=== PATIENT | female | born 1960 | race Caucasian/White ===

== ENCOUNTER 2017-06-23 14:11 | Emergency (ER) | payer SELFPAY ==
[2017-06-23 14:15] VITALS: PULSE 88; RESP 18; O2SAT 96; BMI 29.1
--- NOTE | 2017-06-23 14:20 | XR_ITS ---
XR knee RT 3V HISTORY: Right knee pain following injury ITS.REASON: fall ORDERING PHYSICIAN: Amari Garcia MD PATIENT AGE: 56 years COMPARISON: 11/21/2013 FINDINGS: There are mild osteoarthritic changes involving all 3 compartments with mild osteophyte formation laterally and at the patellofemoral joint and at the tibial spine region. No acute fracture or dislocation evident. Osteoarthritis is somewhat worse on today's exam. IMPRESSION: 1. No acute fracture. 2. Tricompartmental osteoarthritis
--- NOTE | 2017-06-23 14:23 | HMH.EDGENADL ---
ED Disposition Clinical Impression: Knee effusion, right Knee joint injury Qualifiers: Encounter type: initial encounter Laterality: right Qualified Code(s): S89.91XA - Unspecified injury of right lower leg, initial encounter Disposition: Home, Self-Care Condition on Discharge: Good Instructions: DI for Knee Sprain, DI for Knee Effusion, How to Use a Knee Immobilizer Additional Instructions: Knee immobilizer until seen by Dr. Kennedy. Ice for swelling. Ibuprofen for pain and swelling. Referrals: Macho Germain MD [Primary Care Provider] - Isaiah Kennedy MD [Staff Physician] - (Call for appointment to be seen within 1 week) - Critical Care Critical Care Time: No Attestation: On , the high probability of a clinically significant, sudden or life threatening deterioration of the following system(s) required my full and direct attention, intervention and personal management. The time I documented below is in addition to time spent performing reported procedures but includes the following listed in this critical care notation. Medical Decision Making Vital Signs: 06/23/17 14:15 Temperature Source Oral Pulse Rate [Right Brachial] 88 Respiratory Rate 18 02 Sat by Pulse Oximetry 96 Oxygen Delivery Method Room Air Orders (Tests/Meds): ED MEDICATIONS Discontinued Medications Generic Name Dose Route Start Last Admin Trade Name Freq PRN Reason Stop Dose Admin Ibuprofen 800 mg 06/23/17 14:51 06/23/17 15:02 Motrin 400mg Tablet PO 06/23/17 14:52 800 mg ONCE ONE Administration ORDERS Category Date Time Status XR knee RT 3V Stat Exams 06/23/17 14:20 Taken - Radiology Data #1 Image(s): Knee Image Reviewed: Yes I reviewed the patient's radiology results Degenerative changes with spurs. No fracture seen. - Remi Inquiry Pt receiving controlled substance: No Medical Decision Making Narrative: refuses crutches General Adult HPI - General Chief complaint: Extremity Injury, Lower Stated complaint: AO [id number] r knee pain Mode of Arrival: Ambulatory Limitations: No Limitations Description of Symptoms (Recalled from ER Triage Doc. by RN): fell and injured right knee - History of Present Illness HPI narrative: Patient fell and injured her right knee today at work. She complains of diffuse pain across the anterior knee. It hurts when she bears a lot of weight on it. No numbness or weakness. No medications taken for the injury. - Related Data Home Medications Medication Instructions Recorded Confirmed paroxetine 20 mg tablet 20 mg PO QAM 05/11/17 Previous Rx's Medication Instructions Recorded hydrochlorothiazide 25 mg tablet 25 mg PO DAILY #90 tab 06/18/17 Allergies Allergy/AdvReac Type Severity Reaction Status Date / Time codeine [CODEINE] Allergy Intermediate I-HIVES Unverified 05/13/17 11:48 morphine [MORPHINE] Allergy Intermediate I-HIVES Unverified 05/13/17 11:48 penicillin G [PENICILLIN G] Allergy Intermediate I-HIVES Unverified 05/13/17 11:48 acetaminophen [From Tylenol] Allergy Mild RASH Verified 05/13/17 11:48 rofecoxib [From VIOXX] Allergy Unknown NA-NAUSEA/V Unverified 05/13/17 11:48 OMITING H History I have reviewed the patient's past medical history: Yes Medical History: Reports:: Hypertension Denies:: Diabetes Mellitus Type 1, Diabetes Mellitus Type 2 Comment: ANXIETY. HYPERTENSION Other Surgeries: Yes: , Other Amputation: No Fractures: No Comment: PRIMARY C/S--1985. R C/S--1986. BTL--1993. LAP. CHOLY--2012 - Social History Educational Level: Completed High School Smoking Status: Former smoker Tobacco Type: cigarettes Alcohol Intake: never Substance Use Type: denies use - Psychiatric History Expresses thoughts of harming self/others: None Suicide Plan Description: No Plan Family Hx:: Cancer, Hypertension, Coronary Artery Disease, Stroke Comment: 2 SAB'S. 2 C/S ROS Obtained: Yes Systems
[2017-06-23 15:21] VITALS: BP 136/78; PULSE 67; RESP 16; TEMP 36.6
== END 2017-06-23 15:24 | disposition home or self-care (01) ==
PROVIDERS: Emergency Provider Emergency Medicine; Family Provider Family Medicine; PCP Emergency Medicine
DX: S89.91XA Unspecified injury of right lower leg, initial encounter (principal); W19.XXXA Unspecified fall, initial encounter
CPT/HCPCS: 73562; 99281

== ENCOUNTER → 2018-03-15 15:51 | Outpatient (CLI) | payer SELFPAY ==
--- NOTE | 2018-03-15 16:12 | MR_ITS ---
MR lumbar spine wo con, MR 3-d myelogram/MRCP HISTORY: PT states low back pain, bilateral leg pain, bilateral feet tingling X years. ITS.REASON: back pain ORDERING PHYSICIAN: Macho Germain MD PATIENT AGE: 57 years Comparison: MRI 05/18/14. X-RAY 03/15/18 TECHNIQUE: Standard multiplanar multiecho sequences are performed without contrast. 3-D MIP and myelographic images are also rendered and reviewed FINDINGS: There is normal alignment. The spinal cord ends at the T12-L1 level. There is a small focus of increased T2 signal and slightly increased T1 signal involving the T11 vertebral body as before T11-T12: Unremarkable. T12-L1: Unremarkable. L1-L2: Unremarkable. L2-L3: Minimal bulging disc. L3-L4: Concentric bulging disc along with facet and ligamentum flavum hypertrophy with moderate to severe right-sided lateral recess narrowing and moderate left-sided lateral recess narrowing. The bulging disc is slightly eccentric toward the right. There is an annular fissure within the posterior aspect of the disc slightly eccentric toward the right. There is narrowing of the canal at this level L4-L5: Degenerative disc disease with concentric bulging disc along with facet and ligamentum flavum hypertrophy. There is a small broad-based central disc protrusion. There is narrowing of the canal at this level with AP dimension at the level the bulging disc at 10 mm. There is moderate to severe bilateral foraminal narrowing and moderate bilateral lateral recess narrowing.. Annular fissure is noted posteriorly. L5-S1: Mild degenerative disc disease with small annular fissure and minimal bulging disc. Incidental note is made of left renal cysts largest at 4 cm. IMPRESSION: 1. Abnormal MRI of the lumbar spine. There is multilevel lumbar spondylosis with bulging disc, facet and ligamentum hypertrophy, annular fissures and protruding disc. There is canal narrowing along with lateral recess and foraminal narrowing. PLEASE SEE ABOVE FOR DETAILED DESCRIPTION AT EACH LEVEL. 2. L3-L4: Concentric bulging disc along with facet and ligamentum flavum hypertrophy with moderate to severe right-sided lateral recess narrowing and moderate left-sided lateral recess narrowing. The bulging disc is slightly eccentric toward the right. There is an annular fissure within the posterior aspect of the disc slightly eccentric toward the right. There is narrowing of the canal at this level 3. L4-L5: Degenerative disc disease with concentric bulging disc along with facet and ligamentum flavum hypertrophy. There is a small broad-based central disc protrusion slightly larger than when compared to the previous study. There is narrowing of the canal at this level with AP dimension at the level the bulging disc at 10 mm. There is moderate to severe bilateral foraminal narrowing and moderate bilateral lateral recess narrowing.. Annular fissure is noted posteriorly. 4. L5-S1: Mild degenerative disc disease with small annular fissure and minimal bulging disc.
--- NOTE | 2018-03-15 16:15 | XR_ITS ---
EXAM: XR lumbar spine min 4V HISTORY: ITS.REASON: back pain ORDERING PHYSICIAN: Macho Germain MD PATIENT AGE: 57 years COMPARISON: None FINDINGS: Mild dextroscoliosis. Mild degenerative disc disease is present at L3-L4 L4-L5 and L5-S1. No fracture or dislocation. No lytic or blastic change. Small anterior osteophytes are present at L1-L2. IMPRESSION: Mild degenerative changes lumbar spine, no acute finding
== END ==
PROVIDERS: PCP Emergency Medicine; Visit Provider Emergency Medicine
DX: M54.9 Dorsalgia, unspecified (principal)
CPT/HCPCS: 72110; 72148; 76376

== ENCOUNTER → 2018-06-21 16:25 | Outpatient (CLI) | payer OTHER, SELFPAY ==
--- NOTE | 2018-06-21 16:29 | XR_ITS ---
XR chest 2V HISTORY: ITS.REASON: cough ORDERING PHYSICIAN: Chantale Ames PATIENT AGE: 57 years COMPARISON: 03/12/2017 FINDINGS: The cardiomediastinal silhouette and pulmonary vascularity are within normal limits. There is mild prominence of the mediastinum on the right and may be related to ectatic or tortuous ascending aorta. The lungs are clear. No acute bony anomalies. IMPRESSION: No change with no acute finding. Mild prominence of the ascending aorta
== END ==
PROVIDERS: PCP Emergency Medicine; Visit Provider Nurse Practitioner Family
DX: R05 Cough (principal); R06.02 Shortness of breath
CPT/HCPCS: 71046

== ENCOUNTER → 2018-07-14 12:42 | Outpatient (POV) | payer OTHER, SELFPAY | PROVIDERS: Visit Provider Neurological Surgery | DX: Z00.00 Encounter for general adult medical examination without abnormal findings (principal) ==

== ENCOUNTER → 2018-08-03 10:45 | Outpatient (CLI) | payer OTHER, SELFPAY ==
--- NOTE | 2018-08-03 10:46 | CA_ITS ---
PROCEDURE: 2-D M-mode and color Doppler study INDICATIONS FOR THE TEST: Chest pain COPD Heart Murmur Tobacco Smoking Palpitations Fatigue Syncope Edema Hypertension Diabetes Mellitus Rheumatic Fever SOB+SNIDER Obesity Hyperlipidemia Family History HD Additional History heart cath 06/2018 PATIENT INFORMATION HEIGHT: 67 WEIGHT: 191 GENDER: Female B/P: 123/73 2-D/M-MODE INTERPRETATION: 2-D MEASUREMENTS OBSERVED VALUES IN CMS Right Ventricular Dimension (RVDd) 2.2 Interventricular Septum (Thickness)(IVsd) 0.5 Left Ventricular Internal Dimensions(LVIDd) 5.1 Left Ventricular Posterior Wall (Thickness)(LVPWd) 0.6 Aortic Root 2.6 Aortic Cusp Separation 1.8 Left Atrial Dimensions (LAD) 3.2 2D 1. Left atrium is mildly enlarged, left ventricle is normal size, there is no concentric left ventricular hypertrophy, visually estimated ejection fraction 55% with no regional wall motion abnormality. 2. The right atrium and right ventricle are mildly enlarged with normal contractility. 3. The aortic valve is minimally thickened and fibrosed. 4. The mitral and tricuspid valve leaflets are minimally thickened. 5. The pulmonic valve is poorly. 6. No significant pericardial effusion noted. DOPPLER INTERROGATION: Doppler interrogation of the aortic, mitral and tricuspid valvular presence of mild mitral and moderate tricuspid regurgitation, calculated right ventricular systolic pressure is 49 mmHg consistent with moderate pulmonary hypertension, grade 1 diastolic dysfunction seen with tissue Doppler evidence of raised left atrial pressure. Inferior vena cava is not well visualized. CONCLUSION: 1. Mildly enlarged left atrium, normal left ventricular size, visually estimated ejection fraction of 55% with no regional wall motion abnormality, grade 1 diastolic dysfunction seen with tissue Doppler evidence of raised left atrial pressure. 2. Mild mitral and moderate tricuspid regurgitation, calculated right ventricular systolic pressure is 49 mmHg consistent with moderate pulmonary hypertension, inferior vena cava is not well visualized. 3. No significant pericardial effusion noted.
[2018-08-03 12:35] VITALS: PULSE 63; PULSE 68
== END ==
PROVIDERS: PCP Emergency Medicine; Visit Provider Internal Medicine
DX: I10 Essential (primary) hypertension (principal); I51.89 Other ill-defined heart diseases; R06.09 Other forms of dyspnea
CPT/HCPCS: 93306; 94060; 94640; 94727; 94729

== ENCOUNTER → 2018-08-23 16:11 | Outpatient (CLI) | payer OTHER, SELFPAY ==
--- NOTE | 2018-08-23 16:17 | XR_ITS ---
XR chest AP HISTORY: Shortness of air ITS.REASON: SOA ORDERING PHYSICIAN: Chevy Valente APRN PATIENT AGE: 57 years COMPARISON: 06/21/2018 FINDINGS: There is mild prominence of the right aspect of the mediastinum suggesting prominent ascending aorta. The heart size. Lungs are clear bilaterally. No acute bony findings IMPRESSION: No acute finding. No change prominence of the ascending aorta which could be better evaluated with CT angiography of the chest if clinically desired
[2018-08-23 18:53] LABS: Anion Gap 18.8 mEq/L (5-15); Blood Urea Nitrogen 32 mg/dL (7-18); Calcium 9.6 mg/dL (8.5-10.1); Carbon Dioxide 23 mmol/L (21.0-32.0); Chloride 96 mmol/L (98-107); Creatinine,Serum 1.42 mg/dL (0.55-1.02); Estimated Glomerular Filt Rate 38 ml/min (>60); GFR (African American) 46 ML/MIN (>60); Glucose 86 mg/dL (74-106); Potassium 4.8 mmoL/L (3.5-5.1); Sodium 133 mmol/L (136-145)
== END ==
PROVIDERS: PCP Emergency Medicine; Visit Provider Nurse Practitioner Family
DX: R06.00 Dyspnea, unspecified (principal); R25.2 Cramp and spasm
CPT/HCPCS: 71045; 80048

== ENCOUNTER → 2018-09-09 09:26 | Outpatient (CLI) | payer OTHER, SELFPAY ==
[2018-09-09 10:34] LABS: Anion Gap 12.1 mEq/L (5-15); Blood Urea Nitrogen 19 mg/dL (7-18); Calcium 9.1 mg/dL (8.5-10.1); Carbon Dioxide 27 mmol/L (21.0-32.0); Chloride 106 mmol/L (98-107); Creatinine,Serum 0.93 mg/dL (0.55-1.02); Estimated Glomerular Filt Rate 63 ml/min (>60); GFR (African American) 76 ML/MIN (>60); Glucose 84 mg/dL (74-106); Potassium 4.1 mmoL/L (3.5-5.1); Sodium 141 mmol/L (136-145)
== END ==
PROVIDERS: Visit Provider Urology
DX: I27.20 Pulmonary hypertension, unspecified (principal); R06.00 Dyspnea, unspecified
CPT/HCPCS: 36415; 80048

== ENCOUNTER → 2018-10-19 11:53 | Outpatient (CLI) | payer OTHER, SELFPAY ==
[2018-10-19 13:23] LABS: Anion Gap 14.1 mEq/L (5-15); Blood Urea Nitrogen 18 mg/dL (7-18); Calcium 9.2 mg/dL (8.5-10.1); Carbon Dioxide 30 mmol/L (21.0-32.0); Chloride 99 mmol/L (98-107); Creatinine,Serum 0.91 mg/dL (0.55-1.02); Estimated Glomerular Filt Rate 64 ml/min (>60); GFR (African American) 78 ML/MIN (>60); Glucose 85 mg/dL (74-106); Potassium 3.1 mmoL/L (3.5-5.1); Sodium 140 mmol/L (136-145)
== END ==
PROVIDERS: Visit Provider Nurse Practitioner Family
DX: I51.89 Other ill-defined heart diseases (principal); R60.9 Edema, unspecified
CPT/HCPCS: 36415; 80048

== ENCOUNTER → 2019-01-31 13:44 | Outpatient (CLI) | payer OTHER, SELFPAY ==
[2019-02-01 11:39] LABS: Amphetamine/Metha Screen,Urine Negative ng/mL (<1000); Barbiturates Screen,Urine Negative ng/mL (<200); Benzodiazepines Screen,Urine Negative ng/mL (<200); Cannabinoid Screen,Urine Negative ng/mL (<50); Cocaine Screen,Urine Negative ng/mL (<300); Methadone Screen,Urine Negative ng/mL (<300); Opiate Screen,Urine Positive ng/mL (<300); Phencyclidine Screen,Urine Negative ng/mL (<25)
== END ==
PROVIDERS: Visit Provider Emergency Medicine
DX: Z79.891 Long term (current) use of opiate analgesic (principal)
CPT/HCPCS: 80305

== ENCOUNTER → 2019-05-29 13:19 | Outpatient (CLI) | payer OTHER, SELFPAY ==
[2019-05-29 13:34] LABS: Basophils # 0.1 K/mm3 (0-0.2); Basophils % 0.8 % (0.1-2.0); Eosinophils # 0.3 K/mm3 (0.0-0.4); Eosinophils % 3.1 % (0.1-12.0); Hematocrit 41.1 % (37.0-47.0); Hemoglobin 13.5 g/dL (12.2-16.2); Lymphocytes # 2.3 K/mm3 (0.7-4.5); Lymphocytes % 24.3 % (10-50); Mean Corpuscular HGB Conc 32.8 g/dL (31.8-35.4); Mean Corpuscular Hemoglobin 29.6 pg (27.0-31.2); Mean Corpuscular Volume 90.4 fl (81-99); Mean Platelet Volume 7.9 fl (7.4-10.4); Monocytes # 0.5 K/mm3 (0.1-1.0); Monocytes % 5.3 % (1.7-9.3); Neutrophils # 6.2 K/mm3 (1.8-7.8); Neutrophils % 66.5 % (37.0-80.0); Platelet Count 405 K/mm3 (142-424); Red Blood Count 4.54 M/mm3 (4.20-5.40); Red Cell Distribution Width 13.2 % (11.5-17.5); White Blood Count 9.4 K/mm3 (4.8-10.8)
[2019-05-29 14:27] LABS: Alanine Aminotransferase 32 U/L (12-78); Albumin Level 3.8 gm/dL (3.4-5.0); Albumin/Globulin Ratio 1.1 (1.1-1.8); Alkaline Phosphatase 85 U/L (46-116); Anion Gap 12.3 mEq/L (5-15); Aspartate Amino Transferase 28 U/L (15-37); Bilirubin,Total 0.4 mg/dL (0.2-1.0); Blood Urea Nitrogen 21 mg/dL (7-18); Calcium 9.6 mg/dL (8.5-10.1); Carbon Dioxide 32 mmol/L (21.0-32.0); Chloride 101 mmol/L (98-107); Cholesterol 190 mg/dL (140-200); Creatinine,Serum 0.94 mg/dL (0.55-1.02); Estimated Glomerular Filt Rate 62 ml/min (>60); Free T4 (Free Thyroxine) 1.11 ng/dl (0.76-1.46); GFR (African American) 75 ML/MIN (>60); Globulin 3.4 gm/dl (1.3-3.2); Glucose 87 mg/dL (74-106); HDL Cholesterol 38 mg/dL (29-89); LDL Cholesterol 110 mg/dL (0-130); Potassium 3.3 mmoL/L (3.5-5.1); Sodium 142 mmol/L (136-145); Thyroid Stimulating Hormone 2.74 uIU/ml (0.358-3.740); Total Protein,Serum 7.2 gm/dL (6.4-8.2); Triglycerides 208 mg/dL (30-200); VLDL Cholesterol 42 mg/dL (0-40)
[2019-05-30 14:01] LABS: Vitamin D 25 Hydroxy 33.5 ng/mL (30.0-100.0)
== END ==
PROVIDERS: Visit Provider Emergency Medicine
DX: I10 Essential (primary) hypertension (principal); R30.0 Dysuria
CPT/HCPCS: 80053; 80061; 82652; 84439; 84443; 85025; 87086

== ENCOUNTER → 2019-06-09 14:53 | Outpatient (CLI) | payer OTHER, SELFPAY ==
--- NOTE | 2019-06-09 15:05 | MR_ITS ---
PROCEDURE: MR LUMBAR SPINE WO CON CLINICAL INDICATION: back pain Low back pain, bilateral leg pain numbness and tingling COMPARISON: SPLUMBWO MR lumbar spine wo con from 03/15/2018 TECHNIQUE: Standard multiplanar multiecho sequences are performed without contrast. 3-D MIP and myelographic images are also rendered and reviewed FINDINGS: There is normal alignment. Spinal cord ends at the L1 level. This T10-T11 and T11-T12 shows some mild degenerative disc disease. There is a small lipoma within the T11 vertebral body on the right unchanged incidentally noted. T12-L1: Unremarkable. L1-L2: Unremarkable. L2-L3: Minimal bulging disc. Mild facet and ligamentum hypertrophy. L3-L4: Degenerate disc disease with bulging disc slightly eccentric toward the right with facet ligamentum hypertrophy. There is narrowing of the canal at this level with bilateral lateral recess and foraminal narrowing not significantly changed. L4-5: Degenerate disc disease with bulging disc which is eccentric toward the left with facet and ligamentum hypertrophy with narrowing of the canal with moderate right and mild left foraminal narrowing. There is mild left lateral recess narrowing. L5-S1: Mild degenerative disc disease with minimal bulging disc No extruded herniated disc evident. Incidental note made of left renal cysts measuring up to 4.5 cm IMPRESSION: Multilevel lumbar spondylosis with degenerative disc disease, bulging disc, and facet and ligamentum hypertrophy. Please see above for detailed description at each level. Overall no significant change compared to the previous exam Dictated by: Javi Montoya MD 06/11/2019 08:55 Electronically signed by Javi Montoya MD in [place] 06/11/2019 08:55
== END ==
PROVIDERS: PCP Emergency Medicine; Visit Provider Emergency Medicine
DX: M54.9 Dorsalgia, unspecified (principal)
CPT/HCPCS: 72148; 76376

== ENCOUNTER 2019-11-01 12:56 | Emergency (ER) | payer OTHER, SELFPAY ==
[2019-11-01 13:10] VITALS: BP 128/69; PULSE 72; RESP 16; TEMP 37.1; O2SAT 97; BMI 23.6
[2019-11-01 13:18] VITALS: BMI 23.6
[2019-11-01 13:36] LABS: Microscopic, Urine URINE MICROSCOPIC (MICROSCOPIC)
[2019-11-01 13:38] LABS: Blood, Urine 3+ (Negative); Glucose,Urine (UA) Negative (Negative); Ketones,Urine TRACE (Negative); Leukocyte Esterase,Urine 1+ (Negative); Nitrate,Urine POSITIVE (Negative); Protein,Urine 1+ (Negative); Specific Gravity, Urine 1.025 (1.005-1.030)
[2019-11-01 13:40] LABS: Color,Urine Orange (Yellow)
[2019-11-01 13:41] LABS: Appearance,Urine Slightly Cloudy (Clear); Bilirubin,Urine 1+ (Negative)
[2019-11-01 13:57] LABS: RBC,Urine 20-50 #/hpf (0-3)
[2019-11-01 13:58] LABS: Bacteria,Urine Trace /lpf
--- NOTE | 2019-11-01 14:25 | HMH.EDUROGF ---
ED Disposition Clinical Impression: Urinary tract infection Qualifiers: Urinary tract infection type: site unspecified Hematuria presence: without hematuria Qualified Code(s): N39.0 - Urinary tract infection, site not specified Disposition: Home, Self-Care Condition on Discharge: Good Instructions: DI for Urinary Tract Infection (UTI) Additional Instructions: fluids and call pcp for culture results wednesday Prescriptions: levoFLOXacin [Levaquin 500mg tab] 500 mg PO DAILY #7 tab Transmission Status: Pending to [facility] Referrals: Macho Germain MD [Primary Care Provider] - - Critical Care Critical Care Time: No Attestation: On 11/01/19, the high probability of a clinically significant, sudden or life threatening deterioration of the following system(s) required my full and direct attention, intervention and personal management. The time I documented below is in addition to time spent performing reported procedures but includes the following listed in this critical care notation. Medical Decision Making - Medical Records Medical records reviewed: Yes: I reviewed the patient's medical records. - Remi Inquiry Pt receiving controlled substance: No Vital Signs: 11/01/19 13:10 Temperature 98.7 F Temperature Source Oral Pulse Rate [Left Radial] 72 Respiratory Rate 16 Blood Pressure [Left Arm] 128/69 Blood Pressure Mean [Left Arm] 88 Blood Pressure Source [Left Arm] Automatic Cuff Blood Pressure Position [Left Arm] Sitting 02 Sat by Pulse Oximetry 97 Oxygen Delivery Method Room Air - Lab Data Lab results reviewed: Yes: I reviewed the patient's lab results. Lab Results 11/01/19 13:30: Urine Color Ly[place], Urine Appearance Slightly cloudy, Urine pH 5.0, Ur Specific Baltic 1.025, Urine Protein 1+, Urine Glucose (UA) Negative, Urine Ketones Trace, Urine Blood 3+, Urine Nitrate Positive, Urine Bilirubin 1+ A, Urine Urobilinogen 4.0, Ur Leukocyte Esterase 1+ A, Urine RBC 20-50, Urine WBC 10-20, Ur Squamous Epith Cells 3-5, Urine Bacteria Trace Orders (Tests/Meds): ORDERS Category Date Time Status Urine Culture Stat Micro 11/01/19 13:30 Received Female Urogenital HPI - General Chief complaint: Urogenital-Female Stated complaint: headache,nausea,back pain Time Seen by Provider: 11/01/19 14:25 Mode of Arrival: Ambulatory Source of Information: Patient, Medical Record Limitations: No Limitations Description of Symptoms (Recalled from ER Triage Doc. by RN): Pt c/o lower back pain and burning with urination. Pt reports she began taking AZO lastnight - History of Present Illness HPI Narrative: pt with urinary sx and back pain since last pm with no vomiting MD Complaint: dysuria, UTI Onset (ago): day(s) Location: suprapubic Severity: moderate Urinary Symptoms: dysuria, urgency, frequency : no Associated symptoms: denies other symptoms - Related Data Home Medications Medication Instructions Recorded Confirmed multivitamin 1 tab PO DAILY 10/10/18 09/19/19 Previous Rx's Medication Instructions Recorded aspirin 81 mg tablet,delayed 81 mg PO DAILY #90 tab 12/28/18 release hydrochlorothiazide 25 mg tablet 25 mg PO DAILY #90 tab 05/29/19 buspirone 5 mg tablet 5 mg PO BID #60 tab 07/07/19 gabapentin 300 mg capsule 300 mg PO TID #90 cap 09/20/19 hydrocodone 5 mg-acetaminophen 325 1 tab PO TID #90 tab 09/20/19 mg tablet paroxetine HCl 20 mg tablet 20 mg PO DAILY #90 tab 10/17/19 levoFLOXacin [Levaquin 500mg 500 mg PO DAILY #7 tab 11/01/19 tab] Allergies Allergy/AdvReac Type Severity Reaction Status Date / Time amlodipine [From Norvasc] Allergy Severe Redness of Verified 09/19/19 15:57 Skin furosemide [From Lasix] Allergy Severe swelling, Verified 09/19/19 15:57 pain, rash codeine [CODEINE] Allergy Intermediate I-HIVES Verified 09/19/19 15:57 morphine [MORPHINE] Allergy Intermediate I-HIVES Verified 09/19/19 15:57 penic
[2019-11-01 14:27] VITALS: BP 121/80; PULSE 69; RESP 18; O2SAT 100
[2019-11-01 14:31] VITALS: BP 121/80; PULSE 69; RESP 18; TEMP 37.1; O2SAT 100
== END 2019-11-01 14:33 | disposition home or self-care (01) ==
PROVIDERS: Emergency Provider Emergency Medicine; PCP Emergency Medicine
DX: N30.00 Acute cystitis without hematuria (principal); F41.8 Other specified anxiety disorders; K21.9 Gastro-esophageal reflux disease without esophagitis; Z79.899 Other long term (current) drug therapy; I10 Essential (primary) hypertension; J44.9 Chronic obstructive pulmonary disease, unspecified; Z88.0 Allergy status to penicillin; Z88.5 Allergy status to narcotic agent; Z88.8 Allergy status to other drugs, medicaments and biological substances
CPT/HCPCS: 81001; 87086; 99282

== ENCOUNTER 2020-01-09 15:00 | Outpatient (RCR) | payer OTHER, SELFPAY ==
--- NOTE | 2019-11-21 09:57 | HMH.PTOPEV ---
PT Outpatient Evaluation Rehab PT Outpatient Evaluation Start: 11/21/19 09:38 Freq: Status: Active Protocol: Document 11/21/19 09:38 ROSALIO (Rec: 11/21/19 09:57 ROSALIO [id number]) Electronically Signed By Fabien Yates, PT 11/21/19 09:38 Outpatient Therapy Subjective History Subjective History Patient is a 59 year old female presenting to outpatient PT with reports of chronic LBP with LLE radicular symptoms to the L calf area. Symptom onset approx 25 years ago that have progressivley gotten worse over the past 5 months. Most recent imaging indicates multi-level DDD and spondylosis. No specific mechanism of injury to report. Inc pain with lumbar flexion. Comorbidities include COPD, HTN, anxitey/depression and hx of cholecystecomty. Chief Complaint Pain,Weakness Symptom Type Ache,Sharp Symptoms Relieved By Prescription Meds,Activity Symptoms Aggravated By Standing,Physical Activity, Walking,Lifting Prior Functional Limitations Lifting,Housework,Standing, Squatting,Recreation Activity, Walking,Bending/Stooping Current Functional Limitations Lifting,Housework,Sleeping, Standing,Squatting,Recreation Activity,Walking,Bending/ Stooping Symptom Description Constant but Variable Level of pain today (0-10) 7 Pain scale - at its best (0-10) 4 Pain scale - at its worst (0-10) 9 Lumbopelvic Eval Posture Thoracic Spine Posture Standing Position Increased Kyphosis Lumbar Spine Posture Standing Position Increased Lordosis Assistive device Assistive Devices None / NA Palapation tenderness bilateral lumbar spinal tenderness Yes: L3/S1 3/4 paraspinal tenderness Yes: Same buttock tenderness Yes: B PSIS L>R 2/4 Accessory Movement L3 bilateral L4 bilateral L5 bilateral S1 bilateral Range of Motion Lumbar Spine Active Flexion Range of 62 Motion (degrees) Lumbar Spine Active Extension Range of 10 with inc symptoms Motion (degrees) Left Lumbar Spine Lateral Flexion Active 16 Range of Motion (degrees) Right Lumbar Spine Lateral Flexion 18 inc sy
--- NOTE | 2020-01-09 15:16 | HMH.RHREAS ---
Rehab Reassessment Rehab OP Re-assessment Start: 01/09/20 15:10 Freq: Status: Active Protocol: Document 01/09/20 15:10 ROSALIO (Rec: 01/09/20 15:16 ROSALIO [id number]) Electronically Signed By Fabien Yates, PT 01/09/20 15:10 Rehab Re-assessment Subjective Subjective Patient reports 50% improvment since start of care. Objective Objective Notes AROM: flx 74; ext 14; SBr 15; SBl 20 MMT: RLE 5/5 grossly; LLE 4+/5 grossly Neuro: patient reports NT/pain to L5 S1 dermatomes; normal with sensation tests today. Special test: + slump L Assessment Progress Assessment Slower Than Expected Assessment Notes Patient has been seen in outpatient PT evaluation and 6 treatment visits over the past 48 day. She reports relief with mechanical traction and extension protocol. She reports compliance with HEP though this is questionable. She continues to have functional limitations with all standing, walking, bending and lifting activities. Patient goals met STG 2 Goals Not Met All others Revised Goals NA Plan Plan Continue with POC Frequency of Therapy 15 Duration of therapy 1 Time and Billing Re-Eval Time 15 Re-Eval Billing Units 1 PHYSICIAN CERTIFICATION: I certify the specified therapy services for Skylar Lyons are required, authorized, and reviewed every 30 days.
== END 2020-01-09 15:05 | disposition home or self-care (01) ==
LOC: PT 15:00
PROVIDERS: PCP Emergency Medicine; Visit Provider Emergency Medicine
DX: M51.36 Other intervertebral disc degeneration, lumbar region; M48.061 Spinal stenosis, lumbar region without neurogenic claudication
CPT/HCPCS: 97010; 97012; 97014; 97035; 97110; 97163; 97164; G0283

== ENCOUNTER → 2020-04-24 12:23 | Outpatient (CLI) | payer OTHER, SELFPAY ==
--- NOTE | 2020-04-24 12:29 | XR_ITS ---
PROCEDURE: XR KNEE RT 4V CLINICAL INDICATION: right knee pain COMPARISON: Left knee same date FINDINGS: There is mild joint space narrowing laterally and there is spurring of the lateral femoral condyle lateral tibial plateau. Prominent spurring of the tibial spines. Medial joint space is normal. The patella is intact and there is no significant narrowing of the patellofemoral space. There is no effusion. IMPRESSION: Moderate degenerative change primarily involving the lateral joint space somewhat more prominent than the left knee, no acute fracture seen Dictated by: Dr. Elver Rutledge MD 04/24/2020 13:04 Dr. Elver Rutledge MD in [place] 04/24/2020 13:04
--- NOTE | 2020-04-24 12:29 | XR_ITS ---
PROCEDURE: XR KNEE LT 4V CLINICAL INDICATION: left knee pain COMPARISON: CR XR KNEE RT 4V from 04/24/2020 FINDINGS: There is mild joint space narrowing laterally. There is mild spurring of the tibial spines. The patella is intact and I see no definite effusion. There is a small fabella noted. There is mild diffuse soft tissue swelling medially to the knee. IMPRESSION: Mild degenerate change, negative for acute fracture Dictated by: Dr. Elver Rutledge MD 04/24/2020 13:01 Dr. Elver Rutledge MD in [place] 04/24/2020 13:01
== END ==
PROVIDERS: PCP Emergency Medicine; Visit Provider Orthopaedic Surgery
DX: M25.562 Pain in left knee (principal); M25.561 Pain in right knee
CPT/HCPCS: 73564

== ENCOUNTER → 2020-10-02 13:32 | Outpatient (CLI) | payer OTHER, SELFPAY ==
[2020-10-02 15:40] LABS: Basophils # 0.1 K/mm3 (0-0.2); Basophils % 0.5 % (0.1-2.0); Eosinophils # 0.2 K/mm3 (0.0-0.4); Eosinophils % 2.5 % (0.1-12.0); Hematocrit 39.1 % (37.0-47.0); Hemoglobin 12.9 g/dL (12.2-16.2); Lymphocytes # 2.1 K/mm3 (0.7-4.5); Mean Corpuscular HGB Conc 33.1 g/dL (31.8-35.4); Mean Corpuscular Hemoglobin 29.5 pg (27.0-31.2); Mean Corpuscular Volume 89.1 fl (81-99); Mean Platelet Volume 9.3 fl (7.4-10.4); Monocytes # 0.5 K/mm3 (0.1-1.0); Monocytes % 6.2 % (1.7-9.3); Neutrophils # 5.7 K/mm3 (1.8-7.8); Neutrophils % 66.7 % (37.0-80.0); Platelet Count 291 K/mm3 (142-424); Red Blood Count 4.38 M/mm3 (4.20-5.40); White Blood Count 8.6 K/mm3 (4.8-10.8)
[2020-10-02 16:14] LABS: Chloride 107 mmol/L (98-107); Potassium 4.7 mmoL/L (3.5-5.1); Sodium 140 mmol/L (136-145)
[2020-10-02 16:17] LABS: Alanine Aminotransferase 15 U/L (12-78); Albumin Level 4.1 g/dl (3.5-5.0); Albumin/Globulin Ratio 1.3 (1.1-1.8); Alkaline Phosphatase 97 U/L (38-126); Anion Gap 12.7 mEq/L (5-15); Aspartate Amino Transferase 25 U/L (14-36); Bilirubin,Total 0.4 mg/dl (0.2-1.3); Blood Urea Nitrogen 26 mg/dl (7-17); Calcium 8.9 mg/dl (8.4-10.2); Carbon Dioxide 25 mmol/L (22.0-30.0); Cholesterol 216 mg/dl (140-200); Estimated Glomerular Filt Rate 65 ml/min (>60); GFR (African American) 78 ML/MIN (>60); Globulin 3.1 g/dL (1.3-3.2); Glucose 83 mg/dl (74-100); Total Protein,Serum 7.2 g/dl (6.3-8.2); Triglycerides 277 mg/dl (30-150); VLDL Cholesterol 55 mg/dL (0-40)
[2020-10-02 16:18] LABS: Chol/HDL Ratio 5.1 (1-3.5); HDL Cholesterol 42 mg/dl (40-60)
[2020-10-02 16:29] LABS: Direct LDL Cholesterol 126.33 mg/dL (100-129)
[2020-10-02 16:34] LABS: Free T4 (Free Thyroxine) 0.87 ng/dl (0.78-2.19)
[2020-10-02 16:35] LABS: 25-OH Vitamin D, Total 27.6 ng/mL (30-100)
[2020-10-02 16:49] LABS: Thyroid Stimulating Hormone 3.04 uIU/mL (0.465-4.68)
== END ==
PROVIDERS: Visit Provider Emergency Medicine
DX: R53.83 Other fatigue (principal); E55.9 Vitamin D deficiency, unspecified; Z79.899 Other long term (current) drug therapy
CPT/HCPCS: 80053; 80061; 82306; 84439; 84443; 85025

== ENCOUNTER 2020-11-03 00:26 | Emergency (ER) | payer OTHER, SELFPAY ==
[2020-11-03] VITALS (7 sets, daily range): BP systolic 130–160; BP diastolic 78–92; PULSE 73–102; RESP 16–22; TEMP 36.6; O2SAT 94–99; BMI 25.9
--- NOTE | 2020-11-03 00:38 | CT_ITS ---
PROCEDURE INFORMATION: Exam: CT Abdomen And Pelvis With Contrast Exam date and time: 11/03/2020 12:38 AM Age: 59 years old Clinical indication: Nausea and vomiting; Abdominal pain; Epigastric; Patient HX: Abd pain with n/v since tonight TECHNIQUE: Imaging protocol: Computed tomography of the abdomen and pelvis with contrast. Radiation optimization: All CT scans at this facility use at least one of these dose optimization techniques: automated exposure control; mA and/or kV adjustment per patient size (includes targeted exams where dose is matched to clinical indication); or iterative reconstruction. Contrast material: ISOVUE; Contrast volume: 75 ml; Contrast route: IV; COMPARISON: ABDPELWO CT abdomen pelvis wo con 02/04/2018 4:37 PM FINDINGS: Lungs: Unchanged 2 mm nodule in the right middle lobe, likely benign given stability since 02/04/2018. Mild bibasilar atelectasis. Liver: Unremarkable. No intrahepatic biliary dilation. Gallbladder and bile ducts: Cholecystectomy. Common bile duct measures 1.2 cm in caliber, likely related to post cholecystectomy reservoir effect. Pancreas: Unremarkable. No main pancreatic duct dilation. Spleen: Scattered calcified granulomas in the spleen. Adrenal glands: Unremarkable. Kidneys and ureters: There several left renal cysts, measuring up to 5.7 x 4.6 cm in size. There is a 0.2 cm nonobstructing left upper pole calculus. Right kidney is mildly atrophic compared to the left. Punctate right caliceal calculus. No hydronephrosis. Stomach and bowel: Small hiatal hernia. Prominent jejunal loops in the left upper quadrant with suggestion of mucosal thickening/hyperenhancement, suspicious for enteritis. No small bowel obstruction. Colon demonstrates mild wall thickening and is diffusely filled with liquid stool compatible with a nonspecific colitis/diarrheal illness. Appendix: Normal appendix. Intraperitoneal space: No pneumoperitoneum. No ascites. Vasculature: No abdominal aortic aneurysm. Lymph nodes: No enlarged lymph nodes. Urinary bladder: Unremarkable as visualized. No wall thickening. Reproductive: Unremarkable as visualized. Bones/joints: Dextroconvex lumbar curvature. Lower lumbar predominant spondylosis with right greater than left neural foraminal stenosis. Moderate spinal canal stenosis suggested at L3-L4. No acute fracture. Soft tissues: Small fat containing umbilical hernia. IMPRESSION: 1. Findings compatible with a nonspecific enterocolitis and diarrheal illness. 2. Nephrolithiasis. Additional chronic findings as above. COMMENTS: Consistent with the [employer]'s Incidental Findings Committee white paper (J Am Fozia Radiol 2018): Any incidental renal lesion less than 1 cm or classified as too small to characterize, or any incidental cystic renal lesion characterized as simple-appearing, is likely benign. No follow-up imaging is recommended for these lesions per consensus recommendations based on imaging criteria.
[2020-11-03 00:53] LABS: Basophils # 0.1 K/mm3 (0-0.2); Basophils % 0.4 % (0.1-2.0); Eosinophils # 0.4 K/mm3 (0.0-0.4); Eosinophils % 1.7 % (0.1-12.0); Hemoglobin 15.1 g/dL (12.2-16.2); Lymphocytes # 1.6 K/mm3 (0.7-4.5); Lymphocytes % 7.4 % (10-50); Mean Corpuscular HGB Conc 33.6 g/dL (31.8-35.4); Mean Corpuscular Hemoglobin 29.5 pg (27.0-31.2); Mean Corpuscular Volume 87.7 fl (81-99); Mean Platelet Volume 7.8 fl (7.4-10.4); Monocytes # 0.9 K/mm3 (0.1-1.0); Monocytes % 4.3 % (1.7-9.3); Neutrophils # 18.5 K/mm3 (1.8-7.8); Neutrophils % 86.3 % (37.0-80.0); Platelet Count 340 K/mm3 (142-424); Red Blood Count 5.14 M/mm3 (4.20-5.40); Red Cell Distribution Width 13.2 % (11.5-17.5); White Blood Count 21.5 K/mm3 (4.8-10.8)
[2020-11-03 00:55] LABS: MANUAL DIFFERENTIAL MANUAL DIFFERENTIAL (MANUAL DIFF)
[2020-11-03 00:58] LABS: Alanine Aminotransferase 21 U/L (12-78); Albumin Level 4.8 g/dl (3.5-5.0); Albumin/Globulin Ratio 1.3 (1.1-1.8); Alkaline Phosphatase 101 U/L (38-126); Amylase 83 U/L (30-110); Anion Gap 16.2 mEq/L (5-15); Aspartate Amino Transferase 34 U/L (14-36); Bilirubin,Total 0.5 mg/dl (0.2-1.3); Blood Urea Nitrogen 15 mg/dl (7-17); Calcium 10.2 mg/dl (8.4-10.2); Carbon Dioxide 27 mmol/L (22.0-30.0); Chloride 105 mmol/L (98-107); Creatinine Clearance Estimated 74 mL/min (50-200); Estimated Glomerular Filt Rate 57 ml/min (>60); GFR (African American) 69 ML/MIN (>60); Globulin 3.7 g/dL (1.3-3.2); Glucose 129 mg/dl (74-100); Lactic Acid 1.1 mmol/L (0.7-2.1); Lipase 246 U/L (23-300); Potassium 4.2 mmoL/L (3.5-5.1); Sodium 144 mmol/L (136-145); Total Protein,Serum 8.5 g/dl (6.3-8.2)
[2020-11-03 01:03] LABS: C-Reactive Protein 13.3 mg/L (0-4)
[2020-11-03 01:17] LABS: Procalcitonin 0.051 ng/mL (0.0-2.0)
[2020-11-03 01:19] LABS: Erythrocyte Sedimentation Rate 17 mm/hr (0-30)
[2020-11-03 01:22] LABS: Eosinophils % 3 % (0-3); Lymphocytes % 3 % (10-50); Monocytes % 3 % (2-9); Neutrophils % 89 % (42-76); Platelet Estimate Normal; RBC Morphology Normal; Total Cells Counted 100
--- NOTE | 2020-11-03 02:21 | HMH.EDNVD ---
ED Disposition Clinical Impression: Abdominal pain Qualifiers: Abdominal location: epigastric Qualified Code(s): R10.13 - Epigastric pain Leukocytosis (leucocytosis) Qualifiers: Leukocytosis type: unspecified Qualified Code(s): D72.829 - Elevated white blood cell count, unspecified Disposition: Home, Self-Care Condition on Discharge: Good Instructions: DI for Acute Abdominal Pain Additional Instructions: call pcp for follow up Referrals: Provider,Referral, MD [Primary Care Provider] - - Critical Care Critical Care Time: No Attestation: On 11/03/20, the high probability of a clinically significant, sudden or life threatening deterioration of the following system(s) required my full and direct attention, intervention and personal management. The time I documented below is in addition to time spent performing reported procedures but includes the following listed in this critical care notation. Medical Decision Making - Medical Records Medical records reviewed: Yes: I reviewed the patient's medical records. - Remi Inquiry Pt receiving controlled substance: No Vital Signs: 11/03/20 00:28 11/03/20 00:53 11/03/20 01:01 Temperature 97.9 F Temperature Source Oral Pulse Rate 86 77 Pulse Rate [Right] 102 H Respiratory Rate 22 Blood Pressure 160/92 H 138/90 Blood Pressure [Right Arm] 140/87 Blood Pressure Mean [Right Arm] 104 Blood Pressure Source [Right Arm] Automatic Cuff Blood Pressure Position [Right Arm] Sitting 02 Sat by Pulse Oximetry 99 95 94 L Oxygen Delivery Method Room Air Room Air 11/03/20 01:30 11/03/20 02:30 11/03/20 03:00 Temperature Temperature Source Pulse Rate 83 86 73 Pulse Rate [Right] Respiratory Rate Blood Pressure 130/78 145/83 H 147/87 H Blood Pressure [Right Arm] Blood Pressure Mean [Right Arm] Blood Pressure Source [Right Arm] Blood Pressure Position [Right Arm] 02 Sat by Pulse Oximetry 97 96 96 Oxygen Delivery Method Room Air - Lab Data Lab results reviewed: Yes: I reviewed the patient's lab results. Lab Results 11/03/20 00:35: WBC 21.5 H*, RBC 5.14, Hgb 15.1, Hct 45.0, MCV 87.7, MCH 29.5, MCHC 33.6, RDW 13.2, Plt Count 340, MPV 7.8, Neut % (Auto) 86.3 H, Lymph % (Auto) 7.4 L, [place] % (Auto) 4.3, Eos % (Auto) 1.7, Baso % (Auto) 0.4, Neut # (Auto) 18.5 H, Lymph # (Auto) 1.6, [place] # (Auto) 0.9, Eos # (Auto) 0.4, Baso # (Auto) 0.1, Total Counted 100, Neutrophils % (Manual) 89 H, Lymphocytes % (Manual) 3 L, Atypical Lymphs % 2.0, Monocytes % (Manual) 3, Eosinophils % (Manual) 3, Platelet Estimate Normal, RBC Morphology Normal 11/03/20 00:35: Sodium 144, Potassium 4.2, Chloride 105, Carbon Dioxide 27, Anion Gap 16.2 H, BUN 15, Creatinine 1.00, Estimated Creat Clear 74, Estimated GFR 57 L, Est GFR ( Amer) 69, Glucose 129 H, Calcium 10.2, Total Bilirubin 0.5, AST 34, ALT 21, Alkaline Phosphatase 101, C-Reactive Protein 13.3 H, Total Protein 8.5 H, Albumin 4.8, Globulin 3.7 H, Albumin/Globulin Ratio 1.3, Amylase 83, Lipase 246 11/03/20 00:35: Lactate 1.1 11/03/20 00:35: ESR 17 11/03/20 00:35: Procalcitonin 0.051 11/03/20 02:27: SARS-CoV-2 (PCR) Not detected, Influenza A Untype (PCR) Not detected, Influenza Type B (PCR) Not detected 11/03/20 02:31: Urine Color Yellow, Urine Appearance Sl cloudy, Urine pH 5.5, Ur Specific [place] 1.010, Urine Protein 2+, Urine Glucose (UA) Negative, Urine Ketones Negative, Urine Blood 3+, Urine Nitrate Negative, Urine Bilirubin Negative, Urine Urobilinogen 0.2, Ur Leukocyte Esterase Trace, Urine RBC 10-20, Urine WBC 5-10, Ur Squamous Epith Cells 3-5, Urine Bacteria 2+, Urine Mucus 2+ Result diagrams: 11/03/20 00:35 11/03/20 00:35 Orders (Tests/Meds): ED MEDICATIONS Generic Name Dose Route Start Last Admin Trade Name Freq PRN Reason Stop Dose Admin Sodium Chloride 1,000 mls @ 999 mls/hr 11/03/20 00:45 11/03/20 00:44 Sod Chlor 0.9% 1000ml Bag IV 11/03/20 01:45 999 mls/hr .Q1H1M ADAM
[2020-11-03 02:34] LABS: Microscopic, Urine URINE MICROSCOPIC (MICROSCOPIC)
[2020-11-03 02:34] LABS: Coronavirus 19, PCR Not Detected (NotDetected); Influenza A, PCR Not Detected (NotDetected); Influenza B, PCR Not Detected (NotDetected)
[2020-11-03 02:37] LABS: Appearance,Urine SL CLOUDY (Clear); Bilirubin,Urine Negative (Negative); Blood, Urine 3+ (Negative); Color,Urine YELLOW (Yellow); Glucose,Urine (UA) Negative (Negative); Ketones,Urine Negative (Negative); Leukocyte Esterase,Urine TRACE (Negative); Nitrate,Urine Negative (Negative); PH,Urine 5.5 (5.0-8.5); Protein,Urine 2+ (Negative); Urobilinogen,Urine 0.2 EU/dl (0.2)
[2020-11-03 02:48] LABS: Bacteria,Urine 2+ /lpf; Mucus,Urine 2+ /lpf
== END 2020-11-03 03:36 | disposition home or self-care (01) ==
PROVIDERS: Emergency Provider Emergency Medicine
DX: R10.13 Epigastric pain (principal); D72.829 Elevated white blood cell count, unspecified; K21.9 Gastro-esophageal reflux disease without esophagitis; I10 Essential (primary) hypertension; J44.9 Chronic obstructive pulmonary disease, unspecified; F41.8 Other specified anxiety disorders; Z88.0 Allergy status to penicillin; Z88.5 Allergy status to narcotic agent
CPT/HCPCS: 74177; 80053; 81001; 82150; 83605; 83690; 84145; 85007; 85025; 85651; 86140; 87040; 87086; 96365; 96375; 99283; 99284; J2405; Q9967; U0003

== ENCOUNTER 2021-01-16 09:32 | Emergency (ER) | payer OTHER, SELFPAY ==
[2021-01-16 09:32] VITALS: BP 160/81; PULSE 67; RESP 16; TEMP 36.8; O2SAT 97; BMI 24.3
[2021-01-16 09:55] VITALS: BMI 24.3
--- NOTE | 2021-01-16 09:55 | CT_ITS ---
PROCEDURE: CT ABDOMEN PELVIS WO CON CLINICAL INDICATION: stone protocol (R flank pain ) COMPARISON: CT CT ABDOMEN PELVIS W CON from 11/03/2020 TECHNIQUE: Axial images obtained with sagittal and coronal reformats. All CT scans at the facility use one or more dose reduction, viz: automated exposure control, ma/kV adjustment per patient size (including targeted exams where dose is matched to indication, i.e. head), or iterative reconstruction technique. FINDINGS: LOWER THORAX: No acute finding ABDOMEN & PELVIS: There has been a prior cholecystectomy. There are multiple punctate splenic calcification consistent with granulomata. The pancreas and adrenal glands have an unremarkable appearance. A 3 mm nonobstructing stone is present in the mid polar region of the right kidney. There is a 6 cm cyst projecting off the lower pole of the left kidney. No ureteral calculi apparent. No hydronephrosis a No intestinal obstruction or free air. No evidence of appendicitis or diverticulitis. Minimal amount of pelvic fluid nonspecific. There is a mild amount of retained colonic feces. There is mild degenerative disc disease at L4-5. There is mild lumbar scoliosis convex right. IMPRESSION: No acute finding. Nonobstructing 3 mm right renal calculus. No ureteral calculi Dictated by: Javi Montoya MD 01/16/2021 10:42 Javi Montoya MD in [place] 01/16/2021 10:42
--- NOTE | 2021-01-16 09:59 | XR_ITS ---
PROCEDURE: XR CHEST 2V CLINICAL HISTORY: cough COMPARISON: CT [facility] CT CHEST W/O CONTRAST from 10/27/2013 CR CXR CHEST(2 VIEWS-NOT PORTABLE) from 03/12/2017 CR CXR2V XR chest 2V from 06/21/2018 CR Chest from 11/22/2018 FINDINGS: The cardiomediastinal silhouette and pulmonary vascularity are within normal limits. The lungs are clear without infiltrates, suspicious nodules, or pleural effusions. No acute bony abnormalities. IMPRESSION: No acute findings. Dictated by: Javi Montoya MD 01/16/2021 10:56 Javi Montoya MD in [facility] 01/16/2021 10:56
[2021-01-16 10:01] LABS: Microscopic, Urine URINE MICROSCOPIC (MICROSCOPIC)
[2021-01-16 10:02] LABS: Appearance,Urine CLEAR (Clear); Bilirubin,Urine Negative (Negative); Blood, Urine 3+ (Negative); Color,Urine YELLOW (Yellow); Glucose,Urine (UA) Negative (Negative); Ketones,Urine Negative (Negative); Leukocyte Esterase,Urine 1+ (Negative); Nitrate,Urine Negative (Negative); Protein,Urine TRACE (Negative); Urobilinogen,Urine 0.2 EU/dl (0.2)
[2021-01-16 10:03] LABS: Coronavirus 19, PCR Not Detected (NotDetected); Influenza A, PCR Not Detected (NotDetected); Influenza B, PCR Not Detected (NotDetected)
[2021-01-16 10:04] LABS: Basophils # 0.1 K/mm3 (0-0.2); Basophils % 1.1 % (0.1-2.0); Eosinophils # 0.3 K/mm3 (0.0-0.4); Eosinophils % 2.5 % (0.1-12.0); Hematocrit 44.7 % (37.0-47.0); Hemoglobin 14.2 g/dL (12.2-16.2); Lymphocytes # 1.9 K/mm3 (0.7-4.5); Lymphocytes % 17.3 % (10-50); Mean Corpuscular HGB Conc 31.8 g/dL (31.8-35.4); Mean Corpuscular Hemoglobin 29.5 pg (27.0-31.2); Mean Corpuscular Volume 92.6 fl (81-99); Mean Platelet Volume 9.1 fl (7.4-10.4); Monocytes # 0.6 K/mm3 (0.1-1.0); Monocytes % 5.3 % (1.7-9.3); Neutrophils # 7.9 K/mm3 (1.8-7.8); Neutrophils % 73.7 % (37.0-80.0); Platelet Count 394 K/mm3 (142-424); Red Blood Count 4.83 M/mm3 (4.20-5.40); Red Cell Distribution Width 13.9 % (11.5-17.5); White Blood Count 10.8 K/mm3 (4.8-10.8)
[2021-01-16 10:05] LABS: Chloride 106 mmol/L (98-107); Potassium 4.3 mmoL/L (3.5-5.1); Sodium 144 mmol/L (136-145)
[2021-01-16 10:08] LABS: Alanine Aminotransferase 16 U/L (12-78); Albumin Level 4.3 g/dl (3.5-5.0); Albumin/Globulin Ratio 1.2 (1.1-1.8); Alkaline Phosphatase 98 U/L (38-126); Anion Gap 13.3 mEq/L (5-15); Aspartate Amino Transferase 34 U/L (14-36); Bilirubin,Total 0.7 mg/dl (0.2-1.3); Blood Urea Nitrogen 13 mg/dl (7-17); Calcium 9.8 mg/dl (8.4-10.2); Carbon Dioxide 29 mmol/L (22.0-30.0); Creatinine Clearance Estimated 76 mL/min (50-200); Estimated Glomerular Filt Rate 64 ml/min (>60); GFR (African American) 78 ML/MIN (>60); Globulin 3.5 g/dL (1.3-3.2); Glucose 88 mg/dl (74-100); Total Protein,Serum 7.8 g/dl (6.3-8.2)
[2021-01-16 10:14] LABS: RBC,Urine 20-50 #/hpf (0-3)
[2021-01-16 10:15] LABS: Bacteria,Urine 1+ /lpf
--- NOTE | 2021-01-16 10:24 | HMH.EDGENADL ---
ED Disposition Clinical Impression: Right flank pain UTI (urinary tract infection) Qualifiers: Urinary tract infection type: site unspecified Hematuria presence: with hematuria Qualified Code(s): N39.0 - Urinary tract infection, site not specified Disposition: Home, Self-Care Condition on Discharge: Good Instructions: DI for Urinary Tract Infection (UTI), DI for Flank Pain Additional Instructions: Ibuprofen for pain. Additional instructions for URINARY TRACT INFECTION: Take antibiotic as prescribed. See your physician in 2-3 days for follow up and culture results. Return immediately if you have an uncontrollable fever greater than 102 degrees, severe back or abdominal pain, inability to urinate, or repetitive vomiting. Prescriptions: Cefdinir [Omnicef 300mg Capsule] 300 mg PO BID #20 cap Transmission Status: Sent to [facility] Referrals: Macho Germain MD [Primary Care Provider] - - Critical Care Critical Care Time: No Attestation: On 01/16/21, the high probability of a clinically significant, sudden or life threatening deterioration of the following system(s) required my full and direct attention, intervention and personal management. The time I documented below is in addition to time spent performing reported procedures but includes the following listed in this critical care notation. Medical Decision Making - Remi Inquiry Pt receiving controlled substance: No Vital Signs: 01/16/21 09:32 Temperature 98.3 F Temperature Source Oral Pulse Rate [Right] 67 Respiratory Rate 16 Blood Pressure [Right Arm] 160/81 H Blood Pressure Mean [Right Arm] 107 Blood Pressure Source [Right Arm] Automatic Cuff Blood Pressure Position [Right Arm] Sitting 02 Sat by Pulse Oximetry 97 Oxygen Delivery Method Room Air - Lab Data Lab Results 01/16/21 09:40: Urine Color Yellow, Urine Appearance Clear, Urine pH 7.0, Ur Specific [place] 1.020, Urine Protein Trace, Urine Glucose (UA) Negative, Urine Ketones Negative, Urine Blood 3+, Urine Nitrate Negative, Urine Bilirubin Negative, Urine Urobilinogen 0.2, Ur Leukocyte Esterase 1+ A, Urine RBC 20-50, Urine WBC 5-10, Ur Squamous Epith Cells 3-5, Urine Bacteria 1+ 01/16/21 09:40: WBC 10.8, RBC 4.83, Hgb 14.2, Hct 44.7, MCV 92.6, MCH 29.5, MCHC 31.8, RDW 13.9, Plt Count 394, MPV 9.1, Neut % (Auto) 73.7, Lymph % (Auto) 17.3, [place] % (Auto) 5.3, Eos % (Auto) 2.5, Baso % (Auto) 1.1, Neut # (Auto) 7.9 H, Lymph # (Auto) 1.9, [place] # (Auto) 0.6, Eos # (Auto) 0.3, Baso # (Auto) 0.1 01/16/21 09:40: Sodium 144, Potassium 4.3, Chloride 106, Carbon Dioxide 29, Anion Gap 13.3, BUN 13, Creatinine 0.90, Estimated Creat Clear 76, Estimated GFR 64, Est GFR ( Amer) 78, Glucose 88, Calcium 9.8, Total Bilirubin 0.7, AST 34, ALT 16, Alkaline Phosphatase 98, Total Protein 7.8, Albumin 4.3, Globulin 3.5 H, Albumin/Globulin Ratio 1.2 01/16/21 09:40: SARS-CoV-2 (PCR) Not detected, Influenza A Untype (PCR) Not detected, Influenza Type B (PCR) Not detected Result diagrams: 01/16/21 09:40 01/16/21 09:40 Orders (Tests/Meds): ED MEDICATIONS Generic Name Dose Route Start Last Admin Trade Name Freq PRN Reason Stop Dose Admin Ceftriaxone Sodium 1 gm/ 50 mls @ 100 mls/hr 01/16/21 11:00 Sodium Chloride IV 01/16/21 11:29 ONCE ONE Discontinued Medications Generic Name Dose Route Start Last Admin Trade Name Freq PRN Reason Stop Dose Admin Sodium Chloride 1,000 mls @ 999 mls/hr 01/16/21 10:00 01/16/21 09:59 Sod Chlor 0.9% 1000ml Bag IV 01/16/21 11:00 999 mls/hr .Q1H1M ADAM Administration Ketorolac Tromethamine 30 mg 01/16/21 09:57 01/16/21 09:58 Ketorolac 30mg/Ml Vial IV 01/16/21 09:58 30 mg ONCE ONE Administration Ondansetron HCl 4 mg 01/16/21 09:57 01/16/21 09:58 Ondansetron 4mg/2ml Vial IV 01/16/21 09:58 4 mg ONCE ONE Administration ORDERS Category Date Time Status Urine Culture Stat Micro 01/16/21 09:40 Received
[2021-01-16 11:23] VITALS: BP 175/80; PULSE 84; RESP 16; TEMP 36.8; O2SAT 98
== END 2021-01-16 11:39 | disposition home or self-care (01) ==
PROVIDERS: Emergency Provider Emergency Medicine; PCP Emergency Medicine
DX: R10.84 Generalized abdominal pain (principal); N39.0 Urinary tract infection, site not specified; Z79.82 Long term (current) use of aspirin; Z79.899 Other long term (current) drug therapy; Z88.0 Allergy status to penicillin; Z88.6 Allergy status to analgesic agent; Z88.8 Allergy status to other drugs, medicaments and biological substances; F41.9 Anxiety disorder, unspecified; J44.9 Chronic obstructive pulmonary disease, unspecified; F32.9 Major depressive disorder, single episode, unspecified; K21.9 Gastro-esophageal reflux disease without esophagitis; I10 Essential (primary) hypertension
CPT/HCPCS: 71046; 74176; 80053; 81001; 85025; 87086; 96365; 96367; 96375; 99283; C9803; J2405; U0003; U0005

== ENCOUNTER 2021-01-28 11:23 | Emergency (ER) | payer OTHER, SELFPAY ==
[2021-01-28 11:24] VITALS: BP 162/89; PULSE 61; RESP 16; TEMP 36.6; O2SAT 97; BMI 24.1
--- NOTE | 2021-01-28 11:34 | HMH.EDGENADL ---
ED Disposition Clinical Impression: Dental caries, Facial swelling Disposition: Home, Self-Care Condition on Discharge: Good Instructions: Tooth Abscess Additional Instructions: Follow-up with dentist as soon as possible. Return to the emergency department if you break out in a rash, develop shortness of breath, have diffuse diarrhea or blood in your stool. Referrals: Macho Germain MD [Primary Care Provider] - 3 days Time of Disposition: 11:38 - Critical Care Critical Care Time: No Attestation: On , the high probability of a clinically significant, sudden or life threatening deterioration of the following system(s) required my full and direct attention, intervention and personal management. The time I documented below is in addition to time spent performing reported procedures but includes the following listed in this critical care notation. Medical Decision Making - Medical Records Medical records reviewed: Yes: I reviewed the patient's medical records. - Remi Inquiry Pt receiving controlled substance: No Medical Decision Narrative: 60yo F evaluated for dental pain and facial swelling. Patient no acute distress on initial evaluation. No sign of Latonia's angina. Diffuse dental decay and gingivitis. Patient started on clindamycin given her penicillin allergy. Patient plans to see dentist tomorrow. General Adult HPI - General Stated complaint: swollen abcess tooth R side Time Seen by Provider: 01/28/21 11:34 Mode of Arrival: Ambulatory - History of Present Illness HPI narrative: 60yo F presents the emergency department secondary to pain and swelling of her right lower face. Patient reports she had some dental pain yesterday but no swelling. She woke up this morning with severe swelling to the right side. Patient is not established with a dentist. She denies any fever. Denies any difficulty breathing or swallowing. - Related Data Home Medications Medication Instructions Recorded Confirmed Aspirin [Low Dose Aspirin EC] 81 mg PO DAILY 11/03/20 12/13/20 Citalopram Hydrobromide [Celexa] 10 mg PO HS 11/03/20 12/13/20 Ergocalciferol (Vitamin D2) 1,250 mcg PO WEEKLY 11/03/20 12/13/20 [Drisdol] Gabapentin 600 mg PO QID 11/03/20 12/13/20 Previous Rx's Medication Instructions Recorded clonazepam 0.5 mg tablet 0.5 mg PO BID PRN #60 tab 09/25/20 hydrocodone 5 mg-acetaminophen 325 1 tab PO TID PRN #90 tab 09/25/20 mg tablet paroxetine HCl 20 mg tablet See Rx Instructions .ROUTE 11/04/20 .COMPLEX #90 tab prednisone 20 mg tablet 20 mg PO BID 5 Days #10 tab 12/13/20 atorvastatin 10 mg tablet See Rx Instructions .ROUTE 01/03/21 .COMPLEX #90 tablet Cefdinir [Omnicef 300mg Capsule] 300 mg PO BID #20 cap 01/16/21 Allergies Allergy/AdvReac Type Severity Reaction Status Date / Time amlodipine [From Norvasc] Allergy Severe Redness of Verified 12/13/20 11:07 Skin furosemide [From Lasix] Allergy Severe swelling, Verified 12/13/20 11:07 pain, rash codeine [CODEINE] Allergy Intermediate I-HIVES Verified 12/13/20 11:07 morphine [MORPHINE] Allergy Intermediate I-HIVES Verified 12/13/20 11:07 penicillin G [PENICILLIN G] Allergy Intermediate I-HIVES Verified 12/13/20 11:07 [facility] History - Hepatitis A Screen Drug use history?: No Attestation statement:: This patient has been screened for Hepatitis A risk factors. I have reviewed the patient's past medical history: Yes Medical History: Reports:: Anxiety, Chronic Obstructive Pulmonary Disease (COPD), Depression, Gastroesophageal Reflux Disease(GERD), Hypertension Denies:: Diabetes Mellitus Type 1, Diabetes Mellitus Type 2, Pulmonary Embolism, Seizures, Transient Ischemic Attacks (TIA) Comment: ANXIETY. HYPERTENSION Other Surgeries: Yes: Cardiac Catheterization, Cholecystectomy, Colonoscopy, , Other Amputation: No Fractures: No Comment: PRIMARY C/S--1985. R C/S--1986. BTL--1993. LAP. CHOLY--2012 - Social History [facility]
[2021-01-28 11:45] VITALS: BP 162/89; PULSE 74; RESP 16; TEMP 36.6; O2SAT 99
== END 2021-01-28 11:47 | disposition home or self-care (01) ==
PROVIDERS: Emergency Provider Family Medicine; PCP Emergency Medicine
DX: K02.9 Dental caries, unspecified (principal); R22.0 Localized swelling, mass and lump, head; F41.8 Other specified anxiety disorders; K21.9 Gastro-esophageal reflux disease without esophagitis; I10 Essential (primary) hypertension; J44.9 Chronic obstructive pulmonary disease, unspecified; Z79.899 Other long term (current) drug therapy
CPT/HCPCS: 99281

== ENCOUNTER → 2021-03-13 18:11 | Outpatient (CLI) | payer OTHER, SELFPAY ==
[2021-03-13 20:00] LABS: Amphetamine/Metha Screen,Urine Negative ng/ml (<1000); Barbiturates Screen,Urine Negative ng/ml (<200)
[2021-03-13 20:01] LABS: Benzodiazepines Screen,Urine Negative ng/ml (<200)
[2021-03-13 20:02] LABS: Cannabinoid Screen,Urine Negative ng/ml (<50); Cocaine Screen,Urine Negative ng/ml (<300)
[2021-03-13 20:03] LABS: Methadone Screen,Urine Negative ng/ml (<300); Opiate Screen,Urine Positive ng/ml (<300)
[2021-03-13 20:04] LABS: Phencyclidine Screen,Urine Negative ng/ml (<25)
== END ==
PROVIDERS: Visit Provider Nurse Practitioner Family
DX: G62.9 Polyneuropathy, unspecified (principal); M51.36 Other intervertebral disc degeneration, lumbar region
CPT/HCPCS: 80305

== ENCOUNTER 2021-04-30 03:52 | Inpatient (IN) | payer OTHER, SELFPAY ==
[2021-04-30] VITALS (50 sets, daily range): BP systolic 60–159; BP diastolic 34–83; PULSE 66–109; RESP 12–23; TEMP 36.3–37.1; O2SAT 90–100; BMI 24.3; BMI 23.1
--- NOTE | 2021-04-30 03:51 | ECG_ITS ---
APPROVED REPORT Exam: Resting ECG HR:71 bpm ECG Measurements Heart Rate 71 AXES MT 134 P 60 QRSd 76 QRS -14 QT 426 T 11 QTc 462 Conclusion Normal sinus rhythm Normal ECG Electronically signed by : Thomas Hernandez MD 05/02/2021 14:33:31
--- NOTE | 2021-04-30 04:15 | CT_ITS ---
PROCEDURE INFORMATION: Exam: CT Abdomen And Pelvis With Contrast Exam date and time: 04/30/2021 4:15 AM Age: 60 years old Clinical indication: Vomiting; Prior surgery; Additional info: Abd pain, vaginal bleeding, n/v TECHNIQUE: Imaging protocol: Computed tomography of the abdomen and pelvis with contrast. Radiation optimization: All CT scans at this facility use at least one of these dose optimization techniques: automated exposure control; mA and/or kV adjustment per patient size (includes targeted exams where dose is matched to clinical indication); or iterative reconstruction. Contrast material: ISOVUE; Contrast volume: 75 ml; Contrast route: IV; COMPARISON: CT ABDOMEN PELVIS WO CON 01/16/2021 10:05 AM FINDINGS: Liver: Normal. No mass. Gallbladder and bile ducts: Normal. No calcified stones. No ductal dilation. Pancreas: Normal. No ductal dilation. Spleen: Extensive splenic granulomas are noted. Adrenal glands: Normal. No mass. Kidneys and ureters: A large cyst is seen in the left kidney unchanged from prior. Stomach and bowel: Moderate amount of stool is seen in the rectum and sigmoid colon. There is some focal thickening of the anterior wall of the rectum and this extends up to the posterior wall of the vagina, there is some adjacent edema present. There is no air tract high present however. Appendix: No evidence of appendicitis. Intraperitoneal space: Unremarkable. No free air. No significant fluid collection. Vasculature: Unremarkable. No abdominal aortic aneurysm. Lymph nodes: Unremarkable. No enlarged lymph nodes. Urinary bladder: Unremarkable as visualized. Reproductive: See Stomach and bowel finding. Bones/joints: Unremarkable. No acute fracture. Soft tissues: Unremarkable. IMPRESSION: Focal thickening of the anterior rectum which extends to the posterior wall of the vagina. There is no direct tract identified however to suggest a colo vaginal fistula. The cause of the focal thickening and adjacent inflammation is not clear, consider sigmoidoscopy for further evaluation. MRI may also be helpful for this purpose.
[2021-04-30 04:46] LABS: Basophils # 0.2 K/mm3 (0-0.2); Basophils % 1.1 % (0.1-2.0); Eosinophils # 0.1 K/mm3 (0.0-0.4); Eosinophils % 0.7 % (0.1-12.0); Hematocrit 38.8 % (37.0-47.0); Hemoglobin 11.9 g/dL (12.2-16.2); Lymphocytes # 1.4 K/mm3 (0.7-4.5); Mean Corpuscular HGB Conc 30.7 g/dL (31.8-35.4); Mean Corpuscular Hemoglobin 28.8 pg (27.0-31.2); Mean Corpuscular Volume 93.6 fl (81-99); Mean Platelet Volume 8.1 fl (7.4-10.4); Monocytes # 0.8 K/mm3 (0.1-1.0); Monocytes % 4.3 % (1.7-9.3); Neutrophils # 15.5 K/mm3 (1.8-7.8); Platelet Count 351 K/mm3 (142-424); Red Blood Count 4.15 M/mm3 (4.20-5.40)
[2021-04-30 04:52] LABS: Alanine Aminotransferase 21 U/L (12-78); Albumin/Globulin Ratio 1.4 (1.1-1.8); Alkaline Phosphatase 102 U/L (38-126); Anion Gap 10.3 mEq/L (5-15); Aspartate Amino Transferase 29 U/L (14-36); Bilirubin,Total 0.7 mg/dl (0.2-1.3); Blood Urea Nitrogen 17 mg/dl (7-17); Calcium 9.2 mg/dl (8.4-10.2); Carbon Dioxide 26 mmol/L (22.0-30.0); Chloride 106 mmol/L (98-107); Creatinine Clearance Estimated 76 mL/min (50-200); Estimated Glomerular Filt Rate 64 ml/min (>60); GFR (African American) 78 ML/MIN (>60); Globulin 2.9 g/dL (1.3-3.2); Glucose 147 mg/dl (74-100); Potassium 3.3 mmoL/L (3.5-5.1); Sodium 139 mmol/L (136-145); Total Protein,Serum 6.9 g/dl (6.3-8.2)
--- NOTE | 2021-04-30 05:04 | HMH.EDUROGF ---
ED Disposition Clinical Impression: Dysfunctional uterine bleeding, Acute blood loss anemia (ABLA) Disposition: Admitted as Observation Condition on Discharge: Good - Critical Care Critical Care Time: No Attestation: On 04/30/21, the high probability of a clinically significant, sudden or life threatening deterioration of the following system(s) required my full and direct attention, intervention and personal management. The time I documented below is in addition to time spent performing reported procedures but includes the following listed in this critical care notation. Medical Decision Making - Medical Records Medical records reviewed: Yes: I reviewed the patient's medical records. - Remi Inquiry Pt receiving controlled substance: No Vital Signs: 04/30/21 03:53 Temperature 97.6 F Temperature Source Oral Pulse Rate [Left] 75 Respiratory Rate 18 Blood Pressure [Left Arm] 133/80 Blood Pressure Mean [Left Arm] 97 02 Sat by Pulse Oximetry 98 Oxygen Delivery Method Room Air - Lab Data Lab results reviewed: Yes: I reviewed the patient's lab results. Lab Results 04/30/21 04:35: WBC 18.0 H, RBC 4.15 L, Hgb 11.9 L, Hct 38.8, MCV 93.6, MCH 28.8, MCHC 30.7 L, RDW 13.0, Plt Count 351, MPV 8.1, Neut % (Auto) 86.0 H, Lymph % (Auto) 8.0 L, [place] % (Auto) 4.3, Eos % (Auto) 0.7, Baso % (Auto) 1.1, Neut # (Auto) 15.5 H, Lymph # (Auto) 1.4, [place] # (Auto) 0.8, Eos # (Auto) 0.1, Baso # (Auto) 0.2, Total Counted 100, Neutrophils % (Manual) 85 H, Lymphocytes % (Manual) 11, Monocytes % (Manual) 4, Platelet Estimate Normal, RBC Morphology Normal 04/30/21 04:35: Sodium 139, Potassium 3.3 L, Chloride 106, Carbon Dioxide 26, Anion Gap 10.3, BUN 17, Creatinine 0.90, Estimated Creat Clear 76, Estimated GFR 64, Est GFR ( Amer) 78, Glucose 147 H, Calcium 9.2, Total Bilirubin 0.7, AST 29, ALT 21, Alkaline Phosphatase 102, Total Protein 6.9, Albumin 4.0, Globulin 2.9, Albumin/Globulin Ratio 1.4 04/30/21 04:35: ESR 77 H 04/30/21 04:35: C-Reactive Protein 4.4 H, Procalcitonin 0.049 04/30/21 05:30: Blood Type A Positive, Antibody Screen Negative 04/30/21 06:49: WBC 19.5 H, RBC 3.23 L, Hgb 9.6 L D, Hct 29.8 L, MCV 92.1, MCH 29.6, MCHC 32.2, RDW 13.3, Plt Count 329, MPV 8.0, Neut % (Auto) 90.3 H, Lymph % (Auto) 6.0 L, [place] % (Auto) 3.3, Eos % (Auto) 0.1, Baso % (Auto) 0.4, Neut # (Auto) 17.7 H, Lymph # (Auto) 1.2, [place] # (Auto) 0.6, Eos # (Auto) 0.0, Baso # (Auto) 0.1 Result diagrams: 04/30/21 06:49 04/30/21 04:35 Orders (Tests/Meds): ED MEDICATIONS Generic Name Dose Route Start Last Admin Trade Name Freq PRN Reason Stop Dose Admin Sodium Chloride 1,000 mls @ 999 mls/hr 04/30/21 04:30 04/30/21 04:46 Sod Chlor 0.9% 1000ml Bag IV 04/30/21 05:30 999 mls/hr .Q1H1M ADAM Administration Sodium Chloride 1,000 mls @ 999 mls/hr 04/30/21 06:15 04/30/21 06:10 Sod Chlor 0.9% 1000ml Bag IV 04/30/21 07:15 999 mls/hr .Q1H1M ADAM Administration Discontinued Medications Generic Name Dose Route Start Last Admin Trade Name Freq PRN Reason Stop Dose Admin Iopamidol 75 ml 04/30/21 04:51 04/30/21 04:52 Iopamidol-370 (76%);100ml Bottle IV 04/30/21 04:52 75 ml ONCE ONE Administration Ondansetron HCl 4 mg 04/30/21 04:16 04/30/21 04:45 Ondansetron 4mg/2ml Vial IV 04/30/21 04:17 4 mg ONCE ONE Administration Sodium Chloride 10 ml 04/30/21 04:51 04/30/21 04:52 Sodium Chloride 0.9% 10ml Syr (Rad Only) IV 04/30/21 04:52 10 ml ONCE ONE Administration ORDERS Category Date Time Status US transvaginal Stat Exams 04/30/21 06:14 Ordered Rapid PCR Covid and Flu A/B Stat Lab 04/30/21 05:30 Received - CT Data CT Scan: Abdomen, Pelvis Time Received: 07:[address] Reviewed: Yes: I have viewed the radiologist's interpretation Preliminary Findings: Abnormal (see report ) - ECG Data Tracing #1 Normal Sinus Rhythm: Yes Ischemic changes: non-specific ST-T wave changes Medical Decision Narra
--- NOTE | 2021-04-30 05:05 | PC.NURSE ---
Pt has passed 2 large blood clots from vagina since arrival. MD aware. No new orders at this time. IV fluids infusing.
[2021-04-30 05:34] LABS: MANUAL DIFFERENTIAL MANUAL DIFFERENTIAL (MANUAL DIFF)
[2021-04-30 05:47] LABS: C-Reactive Protein 4.4 mg/L (0-4)
[2021-04-30 06:00] LABS: Procalcitonin 0.049 ng/mL (0.0-2.0)
--- NOTE | 2021-04-30 06:14 | US_ITS ---
FINAL REPORT CLINICAL HISTORY: vag bleeding-- heavy -- passing large clots-- done tabd on stretcher-- no tv imaging FINDINGS: Pelvic Ultrasound Technique: Transabdominal sonographic images of the pelvis were obtained. Findings: The uterus measures 9.9 x 5.8 x 3.4 cm. The endometrium is abnormally thickened at 13 mm. There is thickening of the lower uterine segment. It is unclear if this is related to soft tissue thickening or clot. There is a 2.3 cm fibroid in the posterior myometrium. The ovaries are unremarkable. IMPRESSION: 13 mm endometrium in a postmenopausal patient. Cannot exclude underlying neoplasm. Recommend gynecologic evaluation. Prominent cervix of uncertain significance. Recommend gynecologic evaluation and direct visualization. Reviewed, Interpreted and Dictated by Danny Rodney MD Transcribed by Matias Vargas Authenticated by Danny Rodney MD on 04/30/2021 08:12:34 AM [facility]
[2021-04-30 07:01] LABS: Erythrocyte Sedimentation Rate 77 mm/hr (0-30)
[2021-04-30 07:02] LABS: Basophils # 0.1 K/mm3 (0-0.2); Basophils % 0.4 % (0.1-2.0); Eosinophils % 0.1 % (0.1-12.0); Hematocrit 29.8 % (37.0-47.0); Lymphocytes # 1.2 K/mm3 (0.7-4.5); Mean Corpuscular HGB Conc 32.2 g/dL (31.8-35.4); Mean Corpuscular Hemoglobin 29.6 pg (27.0-31.2); Mean Corpuscular Volume 92.1 fl (81-99); Monocytes # 0.6 K/mm3 (0.1-1.0); Monocytes % 3.3 % (1.7-9.3); Neutrophils # 17.7 K/mm3 (1.8-7.8); Neutrophils % 90.3 % (37.0-80.0); Platelet Count 329 K/mm3 (142-424); Red Blood Count 3.23 M/mm3 (4.20-5.40); Red Cell Distribution Width 13.3 % (11.5-17.5); White Blood Count 19.5 K/mm3 (4.8-10.8)
[2021-04-30 07:15] LABS: Coronavirus 19, PCR Not Detected (NotDetected); Influenza A, PCR Not Detected (NotDetected); Influenza B, PCR Not Detected (NotDetected)
[2021-04-30 07:16] LABS: Lymphocytes % 11 % (10-50); Monocytes % 4 % (2-9); Neutrophils % 85 % (42-76); Platelet Estimate Normal; Total Cells Counted 100
--- NOTE | 2021-04-30 07:16 | PC.NURSE ---
House notified of need for bed assignment.
[2021-04-30 07:17] LABS: RBC Morphology Normal
[2021-04-30 07:17] LABS: Hemoglobin 9.6 g/dL (12.2-16.2)
--- NOTE | 2021-04-30 07:28 | PC.NURSE ---
Received report from ISAÍAS Allen from rad at bedside to take pt to US, went in to assess patient and it was noted that she had a visible blood clot. Notified and Lillian. Clot not removed at this time since pt was going for US. Advised Lillian if any issues to call us.
--- NOTE | 2021-04-30 07:30 | PC.NURSE ---
Pt has also been noted to be hypotensive and was receiving her second liter of fluid via pressure bag and pressures had started to trend up.
--- NOTE | 2021-04-30 07:45 | PC.NURSE ---
pt return from ultrasound
--- NOTE | 2021-04-30 07:51 | PC.NURSE ---
pt is very drowsy, reports she is cold, additional warm blanket placed on pt. Pt is easily alertable. Will continue to monitor
--- NOTE | 2021-04-30 08:17 | P.CONPHA_ITS ---
[facility] Pharmacy VTE Monitoring - Patient Demographics Admission date: 04/30/21 Report Date: 04/30/21 Time: 08:17 Allergies/Adverse Reactions: Patient Allergies amlodipine [From Norvasc] Allergy (Severe, Verified 03/13/21 14:20) Redness of Skin furosemide [From Lasix] Allergy (Severe, Verified 03/13/21 14:20) swelling, pain, rash codeine [CODEINE] Allergy (Intermediate, Verified 03/13/21 14:20) I-HIVES morphine [MORPHINE] Allergy (Intermediate, Verified 03/13/21 14:20) I-HIVES penicillin G [PENICILLIN G] Allergy (Intermediate, Verified 03/13/21 14:20) I-HIVES Height: 1.7 m Weight: 70.307 kg Patient Problems: Current Active Problems Dysfunctional uterine bleeding (Acute) Acute blood loss anemia (ABLA) (Acute) - VTE Risk Labs: VTE Related Lab Results Hgb 9.6 g/dL (12.2-16.2) L D 04/30/21 06:49 Hct 29.8 % (37.0-47.0) L 04/30/21 06:49 Plt Count 329 K/mm3 (142-424) 04/30/21 06:49 BUN 17 mg/dl (7-17) 04/30/21 04:35 Creatinine 0.90 mg/dl (0.52-1.04) 04/30/21 04:35 Estimated Creat Clear 76 mL/min (50-200) 04/30/21 04:35 - Prophylaxis VTE Prophylaxis Ordered?: Yes Types of VTE Prophylaxis: TEDS Knee High
--- NOTE | 2021-04-30 09:00 | PC.NURSE ---
Went in to reassess patient and she was still drowsy but able to respond when asked questions. Hung 3rd liter of fluids on pressure bag, removed softball size clot from pt's vaginal area and changed chux and pad. Dr. Germain came through ER at this time and I notified him that pt's pressure was still low and she was still bleeding heavily. He advised to go ahead and put the order in to transfuse 2 units of blood and notify Dr. Gil. ISAÍAS Carias notified Dr. Gil via phone and I called lab and advised them ISAÍAS Carias was going to be entering an order for 2 units stat. I called Amy and updated her on pt status and what new VO Dr. Germain had given. PT to floor via stretcher at this time.
--- NOTE | 2021-04-30 09:05 | PC.NURSE ---
notified dr. roberson of consult on pt
--- NOTE | 2021-04-30 09:47 | HMH.GYNCON ---
COMPUTER GAME PROGRAMMER - CN: HPI - Data of Consult Patient: new to practice Consult date: 04/30/21 Requesting Physician: Macho Germain MD Primary Care Provider: Macho Germain MD - Consult Narrative Reason for consult: vaginal bleeding History of present illness: Ms. Lyons is a 60 year old female She is a 60-year-old lady who complains of vaginal bleeding for the last 3 days. She said she had a Pap smear a couple of years ago. Apparently she has a new partner since her about a year ago. She says that she had intercourse and then began to have bleeding. She says that her new boyfriend is larger than her . She is menopausal as well. She has not had any bleeding since menopause. She said she started bleeding about 11:00 last night. She has been passing large clots this morning. Her hemoglobin is dropped from 11-9. She has a couple of units typed and crossed. She had a large baseball size clot at the vaginal opening when I examined her. CC: Macho Germain MD Review of Systems - Review of Systems Review of systems:: pertinent systems reviewed and negative unless documented below - *Neurologic Denies dizziness, Denies headache(s), Denies seizure-like activity [facility] History Medical History: Reports:: Anxiety, Chronic Obstructive Pulmonary Disease (COPD), Depression, Gastroesophageal Reflux Disease(GERD), Hypertension Denies:: Diabetes Mellitus Type 1, Diabetes Mellitus Type 2, Pulmonary Embolism, Seizures, Transient Ischemic Attacks (TIA) *Have you ever received a pneumonia vaccine?: No *Have you received a flu vaccine this season?: No Other Surgeries: Yes: Cardiac Catheterization, Cholecystectomy, Colonoscopy, , Other Amputation: No Fractures: No - *Social History Smoking Status: Never smoker # Packs/Day (cigarettes): 1 Alcohol Intake: never Substance Use Type: denies use *Occupational Status:: employed Housing: house Household Members: spouse *Travel in the last 8 weeks: None - Psychiatric History Pschychiatric History:: Reports:: Anxiety, Depression Family Hx:: Cancer, Hypertension, Coronary Artery Disease, Stroke, Heart Attack Meds Home Medications Medication Instructions Recorded Confirmed Type paroxetine HCl 20 mg tablet See Rx Instructions .ROUTE 11/04/20 03/13/21 Rx .COMPLEX #90 tab aspirin 81 mg tablet,delayed See Rx Instructions .ROUTE 02/19/21 03/13/21 Rx release .COMPLEX #90 tablet citalopram 20 mg tablet 20 mg PO DAILY #30 tab 03/13/21 03/13/21 Rx clonazepam 0.5 mg tablet 0.5 mg PO BID PRN #60 tab 03/13/21 03/13/21 Rx gabapentin 600 mg tablet 600 mg PO QID #120 tab 03/13/21 03/13/21 Rx hydrocodone 5 mg-acetaminophen 325 1 tab PO TID PRN #90 tab 03/13/21 03/13/21 Rx mg tablet atorvastatin 10 mg tablet See Rx Instructions .ROUTE 04/02/21 Rx .COMPLEX #90 tab Allergies Allergy/AdvReac Type Severity Reaction Status Date / Time amlodipine [From Norvasc] Allergy Severe Redness of Verified 04/30/21 09:37 Skin furosemide [From Lasix] Allergy Severe swelling, Verified 04/30/21 09:37 pain, rash codeine [CODEINE] Allergy Intermediate I-HIVES Verified 04/30/21 09:37 morphine [MORPHINE] Allergy Intermediate I-HIVES Verified 04/30/21 09:37 penicillin G [PENICILLIN G] Allergy Intermediate I-HIVES Verified 04/30/21 09:37 COMPUTER GAME PROGRAMMER - Exam Vital signs: Temp Pulse Resp BP Pulse Ox 98.7 F 77 23 84/55 L 98 04/30/21 09:15 04/30/21 09:15 04/30/21 09:15 04/30/21 09:15 04/30/21 09:15 - Constitutional no acute distress - Routine HEENT Exam Head: Present: normocephalic Eye: Present: EOMI, PERRL ENT: Present: mucous membranes moist - Routine Neck Exam Present: supple, full ROM - Routine Respiratory Exam Absent: accessory muscle use (good air entry bilaterally), wheezes, crackles - Routine Cardiovascular Exam Present: RRR. Absent: murmur - Routine Abdominal Exam Present: soft. Absent: tenderness, distended, rebound, guarding
[2021-04-30 10:01] LABS: Basophils # 0.1 K/mm3 (0-0.2); Basophils % 0.3 % (0.1-2.0); Eosinophils % 0.1 % (0.1-12.0); Hematocrit 27.7 % (37.0-47.0); Hemoglobin 8.9 g/dL (12.2-16.2); Lymphocytes # 1.1 K/mm3 (0.7-4.5); Mean Corpuscular HGB Conc 32.2 g/dL (31.8-35.4); Mean Corpuscular Hemoglobin 29.6 pg (27.0-31.2); Mean Corpuscular Volume 91.9 fl (81-99); Mean Platelet Volume 8.1 fl (7.4-10.4); Monocytes # 0.4 K/mm3 (0.1-1.0); Neutrophils # 17.2 K/mm3 (1.8-7.8); Neutrophils % 91.7 % (37.0-80.0); Platelet Count 351 K/mm3 (142-424); Red Blood Count 3.02 M/mm3 (4.20-5.40); Red Cell Distribution Width 13.4 % (11.5-17.5); White Blood Count 18.8 K/mm3 (4.8-10.8)
--- NOTE | 2021-04-30 11:18 | P.PN_ITS ---
[facility] Anesthesia Checklist - Structural Data Admitted From: Home Planned Operative Procedure/s: d/c Consent for Planned Operative Procedure(s) Verified: Yes - Airway Assessment C-Spine Mobility Assessed: Yes TMJ Mobility Assessed: Yes Dentition: Poor Dentition - Neurological Assessment Level of Consciousness: Awake, Alert, Appropriate - Anesthesia Plan Anesthesia Risk discussed: Yes Anesthesia Plan: Verified ASA Class: II Anesthesia Type: General [facility] History I have reviewed the patient's past medical history: Yes Medical History: Reports:: Anxiety, Chronic Obstructive Pulmonary Disease (COPD), Depression, Gastroesophageal Reflux Disease(GERD), Hypertension Denies:: Diabetes Mellitus Type 1, Diabetes Mellitus Type 2, Pulmonary Embolism, Seizures, Transient Ischemic Attacks (TIA) *Have you ever received a pneumonia vaccine?: No *Have you received a flu vaccine this season?: No Anesthesia experience/problems:: none Other Surgeries: Yes: Cardiac Catheterization, Cholecystectomy, Colonoscopy, C- section, Other Amputation: No Fractures: No - *Social History Smoking Status: Never smoker # Packs/Day (cigarettes): 1 Alcohol Intake: never Substance Use Type: denies use *Occupational Status:: employed Housing: house Household Members: spouse *Travel in the last 8 weeks: None - Psychiatric History Pschychiatric History:: Reports:: Anxiety, Depression Family Hx:: Cancer, Hypertension, Coronary Artery Disease, Stroke, Heart Attack
--- NOTE | 2021-04-30 11:31 | HMH.ANESI ---
[facility] Anesthesia Record Part I Intake, IV Amount: 800 Estimated blood loss (mL): 50 Urine output (mL): 0 Blood Pressure: 90/50 SaO2: 100 Pulse Rate: 90 Respiratory Rate: 12 Temperature: 97.3 F Patient is:: Awake, Stable Stable to PACU at:: 11:25
--- NOTE | 2021-04-30 11:35 | PC.NURSE ---
Pt to surgery @ 1013. Informed surgical rn's that pts blood was rdy @ 1000. Awaiting update at this time. Pt was alert and awake when leaving floor.
[2021-04-30 11:59] LABS: Hematocrit 25.2 % (37.0-47.0)
--- NOTE | 2021-04-30 12:16 | SUR.PHASEI ---
1214- detailed report called to napoleon lind on medsurg floor at this time. 1216- pt left in stable condition with napoleon lind on medsurg floor by napoleon vogt and napoleon yo
--- NOTE | 2021-04-30 12:59 | HMH.ANESII ---
[facility] Anesthesia Record Part II Discharge Time: 12:15 Destination: Medical Surgical Department PACU nurse assessment reviewed?: Yes Patient Condition:: Good Anesthesia Complications:: None Swallowing reflex intact?: Yes Cyanosis?: No Blood Pressure: 95/50 Pulse Rate: 88 Temperature: 98.7 F Mental Status: Alert & Oriented Pain level:: 1 Nausea and/or vomitting:: None Intake, IV Amount: 0
--- NOTE | 2021-04-30 13:58 | HMH.OPNOTE ---
Date of procedure: 04/30/21 Pre-op Diagnosis:: Postmenopausal bleeding Post-op Diagnosis:: Postmenopausal bleeding, vaginal vault tear Procedure performed:: Repair of vaginal vault tear Surgeon:: Keshav Gil MD INFORMATION ASSOC:: Hai Briseno Anesthesia: LMA Estimated blood loss (mL): 50 Clinical Note:: She is a 60-year-old lady who has a 3-day history of vaginal bleeding. She then began bleeding extremely heavily and came into the ER. She was passing golf ball sized clots. She said that she has a new boyfriend and started having sex a few days ago. She had not had sex for a while since the of her . Operative findings:: She had a transverse tear approximately 4 cm long at the vaginal vault inferior to the cervix. It was oozing. There did not seem to be any evidence of peritoneal involvement. Operative note:: She was to the operating room where LMA anesthesia was found be adequate. She was prepped draped normal sterile fashion 5 position. A straight catheter was used to drain her bladder. We placed a weighted speculum in the vagina and the vagina was cleared of clots. At the top of the vagina it was noted that there was a transverse 4 cm tear. It was oozing slightly. I grasped the edges of the tear and using 0 Vicryl suture from left to right in a running locked fashion I close the defect. Hemostasis was found to be adequate at that time. I then grasped the anterior lip of the cervix since the ultrasound showed that she may have had a slightly thickened endometrium. The cervix was dilated with Zamudio dilators to approximately 6 mm. Then using a small curette I curetted the entire endometrial cavity. There was minimal tissue retrieved indicating an atrophic endometrium. There was no active bleeding seen from the cervix. There was some mucus in the cervix that was retrieved as well. She tolerated procedure well and was taken to the recovery room in excellent condition. All sponge, instruments and needle counts were correct. The estimated blood loss intraoperatively was approximately 50 cc. She had lost a considerable amount of blood prior to this. We will transfuse her if necessary. We will continue to follow her blood counts as well. Condition: stable Disposition: PACU Specimens:: Endometrial curettings Complications:: None
[2021-04-30 18:59] LABS: Hematocrit 29.5 % (37.0-47.0)
[2021-04-30 19:07] LABS: Hemoglobin 9.7 g/dL (12.2-16.2)
--- NOTE | 2021-04-30 19:49 | PC.NURSE ---
Dr. Gil notified of 1 hour post H&H at 1947.
--- NOTE | 2021-04-30 20:16 | HMH.HP ---
*Admission Date: 04/30/21 *Chief complaint: vaginal bleeding *History of present illness: this patoent presented to the ed via ems with reported vag bleeding after coitus - pt with several episodes in the ed of heavy vaginal bleeding and had abn ct and pelvic u/s and had dec in hgb - pt was admitted for principal consulting engineer consult and possible transfusion [facility] History I have reviewed the patient's past medical history: Yes Medical History: Reports:: Anxiety, Chronic Obstructive Pulmonary Disease (COPD), Depression, Gastroesophageal Reflux Disease(GERD), Hypertension Denies:: Diabetes Mellitus Type 1, Diabetes Mellitus Type 2, Pulmonary Embolism, Seizures, Transient Ischemic Attacks (TIA) *Have you ever received a pneumonia vaccine?: (unknown) *Have you received a flu vaccine this season?: (unknown) Anesthesia experience/problems:: none Other Surgeries: Yes: Cardiac Catheterization, Cholecystectomy, Colonoscopy, , Other Amputation: No Fractures: No - *Social History Smoking Status: Unknown if ever smoked # Packs/Day (cigarettes): 1 Alcohol Intake: never Substance Use Type: denies use *Occupational Status:: other Housing: house Household Members: spouse *Travel in the last 8 weeks: None - Psychiatric History Pschychiatric History:: Reports:: Anxiety, Depression Family Hx:: Cancer, Hypertension, Coronary Artery Disease, Stroke, Heart Attack Review of Systems - Review of Systems Review of systems:: pertinent systems reviewed and negative unless documented below - Constitutional Denies fever(s) - Eyes Denies change in vision - ENT Denies dizziness - *Cardiovascular Denies chest pain - *Respiratory Denies cough - *Gastrointestinal Denies abdominal pain - *Genitourinary Reports abnormal vaginal bleeding, Reports pelvic pain - *Musculoskeletal Denies joint pain - Integumentary/Breasts Denies rash - *Neurologic Denies dizziness, Denies headache(s), Denies seizure-like activity - Psychiatric Reports anxiety Meds Home Medications Medication Instructions Recorded Confirmed Type paroxetine HCl 20 mg tablet See Rx Instructions .ROUTE 11/04/20 04/30/21 Rx .COMPLEX #90 tab aspirin 81 mg tablet,delayed See Rx Instructions .ROUTE 02/19/21 04/30/21 Rx release .COMPLEX #90 tablet citalopram 20 mg tablet 20 mg PO DAILY #30 tab 03/13/21 04/30/21 Rx clonazepam 0.5 mg tablet 0.5 mg PO BID PRN #60 tab 11/18/21 01/05/22 Rx gabapentin 600 mg tablet 600 mg PO QID #120 tab 03/13/21 04/30/21 Rx hydrocodone 5 mg-acetaminophen 325 1 tab PO TID PRN #90 tab 03/13/21 04/30/21 Rx mg tablet atorvastatin 10 mg tablet See Rx Instructions .ROUTE 04/02/21 04/30/21 Rx .COMPLEX #90 tab Allergies Allergy/AdvReac Type Severity Reaction Status Date / Time amlodipine [From Norvasc] Allergy Severe Redness of Verified 04/30/21 09:37 Skin furosemide [From Lasix] Allergy Severe swelling, Verified 04/30/21 09:37 pain, rash codeine [CODEINE] Allergy Intermediate I-HIVES Verified 04/30/21 09:37 morphine [MORPHINE] Allergy Intermediate I-HIVES Verified 04/30/21 09:37 penicillin G [PENICILLIN G] Allergy Intermediate I-HIVES Verified 04/30/21 09:37 Exam Vital signs and Labs for Last 24 Hours: Temp Pulse Resp BP Pulse Ox 98.2 F 77 16 99/49 L 97 04/30/21 19:05 04/30/21 19:05 04/30/21 19:05 04/30/21 19:05 04/30/21 19:05 Laboratory Results - last 24 hr 04/30/21 04:35: WBC 18.0 H, RBC 4.15 L, Hgb 11.9 L, Hct 38.8, MCV 93.6, MCH 28.8, MCHC 30.7 L, RDW 13.0, Plt Count 351, MPV 8.1, Neut % (Auto) 86.0 H, Lymph % (Auto) 8.0 L, [place] % (Auto) 4.3, Eos % (Auto) 0.7, Baso % (Auto) 1.1, Neut # (Auto) 15.5 H, Lymph # (Auto) 1.4, [place] # (Auto) 0.8, Eos # (Auto) 0.1, Baso # (Auto) 0.2, Total Counted 100, Neutrophils % (Manual) 85 H, Lymphocytes % (Manual) 11, Monocytes % (Manual) 4, Platelet Estimate Normal, RBC Morphology Normal 04/30/21 04:35: Sodium 139, Potassium 3.3 L, Chloride 106, Carbon Dioxide 26, Anion G
--- NOTE | 2021-04-30 20:34 | PC.NURSE ---
Did clarifiy with Dr. Gil that he only wanted x 1 unit of blood infused. Pt stable and awake, doing better this evening. Dr. Gil stated pt could have a reg diet as tolerated. Very minimal scant blood noted to nydia pad.
[2021-05-01] VITALS (15 sets, daily range): BP systolic 101–130; BP diastolic 54–86; PULSE 75–89; RESP 15–18; TEMP 36.1–37.1; O2SAT 95–100; BMI 25.4
[2021-05-01 02:15] LABS: Hematocrit 26.9 % (37.0-47.0)
[2021-05-01 02:16] LABS: Hemoglobin 8.6 g/dL (12.2-16.2)
[2021-05-01 06:53] LABS: Basophils % 0.2 % (0.1-2.0); Eosinophils % 0.1 % (0.1-12.0); Hematocrit 25.6 % (37.0-47.0); Hemoglobin 8.1 g/dL (12.2-16.2); Lymphocytes # 2.4 K/mm3 (0.7-4.5); Lymphocytes % 16.2 % (10-50); Mean Corpuscular HGB Conc 31.5 g/dL (31.8-35.4); Mean Corpuscular Hemoglobin 29.8 pg (27.0-31.2); Mean Corpuscular Volume 94.7 fl (81-99); Mean Platelet Volume 8.8 fl (7.4-10.4); Monocytes # 0.8 K/mm3 (0.1-1.0); Monocytes % 5.5 % (1.7-9.3); Neutrophils # 11.5 K/mm3 (1.8-7.8); Platelet Count 265 K/mm3 (142-424); Red Blood Count 2.71 M/mm3 (4.20-5.40); Red Cell Distribution Width 13.9 % (11.5-17.5); White Blood Count 14.7 K/mm3 (4.8-10.8)
[2021-05-01 07:07] LABS: Anion Gap 4.7 mEq/L (5-15); Blood Urea Nitrogen 18 mg/dl (7-17); Calcium 7.9 mg/dl (8.4-10.2); Carbon Dioxide 25 mmol/L (22.0-30.0); Chloride 112 mmol/L (98-107); Creatinine Clearance Estimated 89 mL/min (50-200); Estimated Glomerular Filt Rate 74 ml/min (>60); GFR (African American) 89 ML/MIN (>60); Glucose 101 mg/dl (74-100); Potassium 3.7 mmoL/L (3.5-5.1); Sodium 138 mmol/L (136-145)
--- NOTE | 2021-05-01 08:10 | HMH.PHAINT ---
VERIFIED HOME MEDICATION LIST USING LIST FROM [facility]
--- NOTE | 2021-05-01 09:35 | HMH.ACPN2 ---
Internal Medicine - PN: Subj *Date: 05/01/21 *Time: 09:35 Interval history: She seems to be doing well this morning. She is alert and active. She received 1 unit of blood yesterday and her hemoglobin is now 8.1. It had gone up to 8.6 after the transfusion. She is afebrile. She denies any shortness of breath or chest pain. She denies any dizziness. Exam Vital signs and Labs for Last 24 Hours: Temp Pulse Resp BP Pulse Ox 97.8 F 89 16 119/59 L 98 05/01/21 08:00 05/01/21 08:00 05/01/21 08:00 05/01/21 08:00 05/01/21 08:00 Laboratory Results - last 24 hr 04/30/21 05:30: Blood Type A Positive, Antibody Screen Negative, Crossmatch ([facility]) See Detail 04/30/21 06:49: Blood Type Confirm A Positive 04/30/21 09:50: WBC 18.8 H, RBC 3.02 L, Hgb 8.9 L, Hct 27.7 L, MCV 91.9, MCH 29.6, MCHC 32.2, RDW 13.4, Plt Count 351, MPV 8.1, Neut % (Auto) 91.7 H, Lymph % (Auto) 6.0 L, Arthur % (Auto) 2.0, Eos % (Auto) 0.1, Baso % (Auto) 0.3, Neut # (Auto) 17.2 H, Lymph # (Auto) 1.1, Arthur # (Auto) 0.4, Eos # (Auto) 0.0, Baso # (Auto) 0.1 04/30/21 11:55: Hgb 8.0 L D, Hct 25.2 L 04/30/21 18:27: Hgb 9.7 L D, Hct 29.5 L 04/30/21 20:46: Hgb 8.6 L D, Hct 26.9 L 05/01/21 06:18: WBC 14.7 H, RBC 2.71 L, Hgb 8.1 L, Hct 25.6 L, MCV 94.7, MCH 29.8, MCHC 31.5 L, RDW 13.9, Plt Count 265, MPV 8.8, Neut % (Auto) 78.0, Lymph % (Auto) 16.2, Arthur % (Auto) 5.5, Eos % (Auto) 0.1, Baso % (Auto) 0.2, Neut # (Auto) 11.5 H, Lymph # (Auto) 2.4, Arthur # (Auto) 0.8, Eos # (Auto) 0.0, Baso # (Auto) 0.0 05/01/21 06:18: Sodium 138, Potassium 3.7, Chloride 112 H, Carbon Dioxide 25, Anion Gap 4.7 L, BUN 18 H, Creatinine 0.80, Estimated Creat Clear 89, Estimated GFR 74, Est GFR ( Amer) 89, Glucose 101 H, Calcium 7.9 L I & O for Last 24 hours: Intake & Output 04/28/21 04/29/21 04/30/21 05/01/21 11:59 11:59 11:59 11:59 Intake Total 800 / 800 490 / 490 Output Total 50 / 50 Balance 750 / 750 490 / 490 Weight 148 lb 1 oz 162 lb 9.6 oz - Constitutional no acute distress Assessment and Plan (1) Fibroid, uterine Status: Acute Category: Medical Code(s): D25.9 - Leiomyoma of uterus, unspecified (2) Acute blood loss anemia (ABLA) Status: Acute Category: Medical Code(s): D62 - Acute posthemorrhagic anemia (3) Dysfunctional uterine bleeding Status: Acute Category: Medical Code(s): N93.8 - Other specified abnormal uterine and vaginal bleeding (4) Vaginal laceration Status: Acute Qualifiers: Vaginal laceration type: non-obstetric Perineal laceration presence: unspecified whether perineal laceration present Encounter type: initial encounter Foreign body presence: without foreign body Qualified Code(s): S31.41XA - Laceration without foreign body of vagina and vulva, initial encounter Category: Medical Code(s): S31.41XA - Laceration without foreign body of vagina and vulva, initial encounter - Assessment and plan all Dx Assessment and Plan for all problems:: Her color seems good this morning. She is alert and awake. She says she feels better. She is not actively bleeding. Her white count has come down. We'll go ahead and send her home today. She can follow-up with me in 6 weeks time. I told her to take a women's multivitamin every day. I gave her the usual instructions with respect to limiting her activity, driving and sexual activity. We'll see her back in my office in 6 weeks time.
--- NOTE | 2021-05-01 17:41 | HMH.DCSUM ---
General - General Admission date:: 04/30/21 Discharge date: 05/01/21 HPI HPI: this patoent presented to the ed via ems with reported vag bleeding after coitus - pt with several episodes in the ed of heavy vaginal bleeding and had abn ct and pelvic u/s and had dec in hgb - pt was admitted for facilities engineer consult and possible transfusion Hospital Course Hospital Course: Laboratory Tests 04/30/21 04/30/21 04/30/21 04:35 04:35 04:35 WBC 18.0 H RBC 4.15 L Hgb 11.9 L Hct 38.8 MCV 93.6 MCH 28.8 MCHC 30.7 L RDW 13.0 Plt Count 351 MPV 8.1 Neut % (Auto) 86.0 H Lymph % (Auto) 8.0 L [place] % (Auto) 4.3 Eos % (Auto) 0.7 Baso % (Auto) 1.1 Neut # (Auto) 15.5 H Lymph # (Auto) 1.4 [place] # (Auto) 0.8 Eos # (Auto) 0.1 Baso # (Auto) 0.2 Total Counted 100 Neutrophils % (Manual) 85 H Lymphocytes % (Manual) 11 Monocytes % (Manual) 4 Platelet Estimate Normal RBC Morphology Normal ESR 77 H Sodium 139 Potassium 3.3 L Chloride 106 Carbon Dioxide 26 Anion Gap 10.3 BUN 17 Creatinine 0.90 Estimated Creat Clear 76 Estimated GFR 64 Est GFR ( Amer) 78 Glucose 147 H Calcium 9.2 Total Bilirubin 0.7 AST 29 ALT 21 Alkaline Phosphatase 102 C-Reactive Protein Total Protein 6.9 Albumin 4.0 Globulin 2.9 Albumin/Globulin Ratio 1.4 Procalcitonin SARS-CoV-2 (PCR) Influenza A Untype (PCR) Influenza Type B (PCR) Blood Type Blood Type Confirm Antibody Screen Crossmatch ([facility]) 04/30/21 04/30/21 04/30/21 04:35 05:30 05:30 WBC RBC Hgb Hct MCV MCH MCHC RDW Plt Count MPV Neut % (Auto) Lymph % (Auto) [place] % (Auto) Eos % (Auto) Baso % (Auto) Neut # (Auto) Lymph # (Auto) [place] # (Auto) Eos # (Auto) Baso # (Auto) Total Counted Neutrophils % (Manual) Lymphocytes % (Manual) Monocytes % (Manual) Platelet Estimate RBC Morphology ESR Sodium Potassium Chloride Carbon Dioxide Anion Gap BUN Creatinine Estimated Creat Clear Estimated GFR Est GFR ( Amer) Glucose Calcium Total Bilirubin AST ALT Alkaline Phosphatase C-Reactive Protein 4.4 H Total Protein Albumin Globulin Albumin/Globulin Ratio Procalcitonin 0.049 SARS-CoV-2 (PCR) Not detected Influenza A Untype (PCR) Not detected Influenza Type B (PCR) Not detected Blood Type A Positive Blood Type Confirm Antibody Screen Negative Crossmatch ([facility]) See Detail 04/30/21 04/30/21 04/30/21 06:49 06:49 09:50 WBC 19.5 H 18.8 H RBC 3.23 L 3.02 L Hgb 9.6 L D 8.9 L Hct 29.8 L 27.7 L MCV 92.1 91.9 MCH 29.6 29.6 MCHC 32.2 32.2 RDW 13.3 13.4 Plt Count 329 351 MPV 8.0 8.1 Neut % (Auto) 90.3 H 91.7 H Lymph % (Auto) 6.0 L 6.0 L [place] % (Auto) 3.3 2.0 Eos % (Auto) 0.1 0.1 Baso % (Auto) 0.4 0.3 Neut # (Auto) 17.7 H 17.2 H Lymph # (Auto) 1.2 1.1 [place] # (Auto) 0.6 0.4 Eos # (Auto) 0.0 0.0 Baso # (Auto) 0.1 0.1 Total Counted Neutrophils % (Manual) Lymphocytes % (Manual) Monocytes % (Manual) Platelet Estimate RBC Morphology ESR Sodium Potassium Chloride Carbon Dioxide Anion Gap BUN Creatinine Estimated Creat Clear Estimated GFR Est GFR ( Amer) Glucose Calcium Total Bilirubin AST ALT Alkaline Phosphatase C-Reactive Protein Total Protein Albumin Globulin Albumin/Globulin Ratio Procalcitonin SARS-CoV-2 (PCR) Influenza A Untype (PCR) Influenza Type B (PCR) Blood Type Blood Type Confirm A Positive Antibody Screen Crossmatch ([facility]) 04/30/21 04/30/21 04/30/21 11:55 18:27 20:46 WBC RBC Hgb 8.0 L D 9.7 L D 8.6 L D Hct 25.2 L 29.5
[2021-05-01 22:31] LABS: Hematocrit 29.5 % (37.0-47.0)
[2021-05-01 22:41] LABS: Hemoglobin 9.4 g/dL (12.2-16.2)
== END 2021-05-01 19:10 | disposition home or self-care (01) | DRG 744 ==
LOC: ER 07:12 → 2ND 07:19
PROVIDERS: Nurse Practitioner Family; Nurse Practitioner Obstetrics & Gynecology; Admitting Provider Emergency Medicine; Emergency Provider Emergency Medicine; PCP Emergency Medicine; Visit Provider Emergency Medicine
PROC: 0UQGXZZ Repair Vagina, External Approach (ICD-10-PCS; CPT 58120; principal; 2021-04-30 10:00)
DX: S31.41XA Laceration without foreign body of vagina and vulva, initial encounter (principal); D62 Acute posthemorrhagic anemia; X58.XXXA Exposure to other specified factors, initial encounter; N93.8 Other specified abnormal uterine and vaginal bleeding; F41.9 Anxiety disorder, unspecified; F32.A Depression, unspecified; J44.9 Chronic obstructive pulmonary disease, unspecified; I10 Essential (primary) hypertension; N95.0 Postmenopausal bleeding; Z20.822 Contact with and (suspected) exposure to COVID-19; D25.9 Leiomyoma of uterus, unspecified
CPT/HCPCS: 57200; 58120; 36415; 74177; 76856; 80048; 80053; 84145; 85007; 85014; 85018; 85025; 85651; 86140; 86850; 88305; 93005; 96365; 96366; 99284; C9803; J2405; P9016; Q9967; U0003; U0005

== ENCOUNTER → 2021-05-02 17:00 | Outpatient (CLI) | payer OTHER, SELFPAY ==
[2021-05-02 20:01] LABS: Amphetamine/Metha Screen,Urine Negative ng/ml (<1000)
[2021-05-02 20:02] LABS: Barbiturates Screen,Urine Negative ng/ml (<200); Benzodiazepines Screen,Urine Negative ng/ml (<200)
[2021-05-02 20:03] LABS: Cannabinoid Screen,Urine Negative ng/ml (<50); Cocaine Screen,Urine Negative ng/ml (<300)
[2021-05-02 20:05] LABS: Phencyclidine Screen,Urine Negative ng/ml (<25)
[2021-05-02 20:13] LABS: Methadone Screen,Urine Negative ng/ml (<300)
[2021-05-02 20:14] LABS: Opiate Screen,Urine Positive ng/ml (<300)
== END ==
PROVIDERS: Visit Provider Nurse Practitioner Family
DX: Z79.899 Other long term (current) drug therapy (principal)
CPT/HCPCS: 80305

== ENCOUNTER 2021-07-13 09:06 | Emergency (ER) | payer OTHER, SELFPAY ==
[2021-07-13 09:07] VITALS: BP 172/68; PULSE 65; RESP 18; TEMP 37.1; O2SAT 99; BMI 21.7
--- NOTE | 2021-07-13 09:17 | PC.NURSE ---
rn in room to triage, pt went to restroom for urine sample
--- NOTE | 2021-07-13 09:46 | HMH.EDGENADL ---
ED Disposition Clinical Impression: Dysuria, Nausea Hematuria Qualifiers: Hematuria type: unspecified type Qualified Code(s): R31.9 - Hematuria, unspecified Low back pain Qualifiers: Chronicity: acute Back pain laterality: bilateral Sciatica presence: without sciatica Qualified Code(s): M54.50 - Low back pain, unspecified Disposition: Home, Self-Care Condition on Discharge: Good Instructions: DI for Nausea -- Adult, DI for Dysuria -- Adult, DI for Hematuria, DI for Low Back Pain Additional Instructions: Cipro as prescribed, begin tomorrow. Zofran as needed for nausea. Follow-up with urology, Dr. Dia, call for appointment. Urine culture has been performed, results generally take 2 to 3 days. Follow-up the results of this test with your primary care provider within 2 to 3 days. Prescriptions: Ciprofloxacin HCl [Cipro 500mg Tab] 500 mg PO BID #14 tab Transmission Status: Pending to [facility] Ondansetron [Zofran 4mg ODT] 4 mg PO TIDP PRN #10 tab PRN Reason: Nausea And Vomiting Transmission Status: Pending to [id number] Referrals: Macho Germain MD [Primary Care Provider] - Jostin Dia MD [Staff Physician] - - Critical Care Critical Care Time: No Attestation: On 07/13/21, the high probability of a clinically significant, sudden or life threatening deterioration of the following system(s) required my full and direct attention, intervention and personal management. The time I documented below is in addition to time spent performing reported procedures but includes the following listed in this critical care notation. Medical Decision Making - Medical Records Medical records reviewed: Yes: I reviewed the patient's medical records. MR Comment: Multiple prior urine culture results - all are either contaminated or no growth. Most recent CT abdomen and pelvis was in April. At that time she had a vaginal laceration. She had no stones visible at that time. She does have a chronic renal cyst. Reviewed previous urine analysis results. Frequently has hematuria, mild pyuria, but cultures have been negative. - Remi Inquiry Pt receiving controlled substance: No Vital Signs: 07/13/21 09:07 Temperature 98.7 F Temperature Source Oral Pulse Rate [Left Radial] 65 Respiratory Rate 18 Blood Pressure [Right Arm] 172/68 H Blood Pressure Mean [Right Arm] 102 Blood Pressure Source [Right Arm] Automatic Cuff Blood Pressure Position [Right Arm] Sitting 02 Sat by Pulse Oximetry 99 Oxygen Delivery Method Room Air - Lab Data Lab Results 07/13/21 09:21: Urine Color Yellow, Urine Appearance Clear, Urine pH 7.5, Ur Specific [place] 1.020, Urine Protein Trace, Urine Glucose (UA) Negative, Urine Ketones Negative, Urine Blood 3+, Urine Nitrate Negative, Urine Bilirubin Negative, Urine Urobilinogen 1.0, Ur Leukocyte Esterase 1+ A, Urine RBC 5-10, Urine WBC 5-10, Ur Squamous Epith Cells 3-5, Urine Bacteria 1+ 07/13/21 09:40: WBC 6.7, RBC 4.58, Hgb 13.3, Hct 40.9, MCV 89.2, MCH 29.1, MCHC 32.6, RDW 13.6, Plt Count 312, MPV 8.6, Neut % (Auto) 66.5, Lymph % (Auto) 22.5, Moore % (Auto) 6.0, Eos % (Auto) 2.9, Baso % (Auto) 2.0, Neut # (Auto) 4.4, Lymph # (Auto) 1.5, Moore # (Auto) 0.4, Eos # (Auto) 0.2, Baso # (Auto) 0.1 07/13/21 09:40: Sodium 142, Potassium 3.7, Chloride 108 H, Carbon Dioxide 26, Anion Gap 11.7, BUN 17, Creatinine 0.80, Estimated Creat Clear 76, Estimated GFR 74, Est GFR ( Amer) 89, Glucose 83, Calcium 9.8, Total Bilirubin 0.8, AST 36, ALT 19, Alkaline Phosphatase 105, Total Protein 7.7, Albumin 4.4, Globulin 3.3 H, Albumin/Globulin Ratio 1.3 Result diagrams: 07/13/21 09:40 07/13/21 09:40 Orders (Tests/Meds): ED MEDICATIONS Generic Name Dose Route Start Last Admin Trade Name Freq PRN Reason Stop Dose Admin Sodium Chloride 10 ml 07/13/21 09:24 Sodium Chloride 0.9% 10ml Flush Syringe IV 08/12/21 09:23 NEEDED PRN Maintain IV Site Discontinue
[2021-07-13 09:50] LABS: Microscopic, Urine URINE MICROSCOPIC (MICROSCOPIC)
[2021-07-13 09:57] LABS: Basophils # 0.1 K/mm3 (0-0.2); Eosinophils # 0.2 K/mm3 (0.0-0.4); Eosinophils % 2.9 % (0.1-12.0); Hematocrit 40.9 % (37.0-47.0); Hemoglobin 13.3 g/dL (12.2-16.2); Lymphocytes # 1.5 K/mm3 (0.7-4.5); Lymphocytes % 22.5 % (10-50); Mean Corpuscular HGB Conc 32.6 g/dL (31.8-35.4); Mean Corpuscular Hemoglobin 29.1 pg (27.0-31.2); Mean Corpuscular Volume 89.2 fl (81-99); Mean Platelet Volume 8.6 fl (7.4-10.4); Monocytes # 0.4 K/mm3 (0.1-1.0); Neutrophils # 4.4 K/mm3 (1.8-7.8); Neutrophils % 66.5 % (37.0-80.0); Platelet Count 312 K/mm3 (142-424); Red Blood Count 4.58 M/mm3 (4.20-5.40); Red Cell Distribution Width 13.6 % (11.5-17.5); White Blood Count 6.7 K/mm3 (4.8-10.8)
[2021-07-13 10:03] LABS: Chloride 108 mmol/L (98-107)
[2021-07-13 10:04] LABS: Potassium 3.7 mmoL/L (3.5-5.1); Sodium 142 mmol/L (136-145)
[2021-07-13 10:06] LABS: Alanine Aminotransferase 19 U/L (12-78); Aspartate Amino Transferase 36 U/L (14-36); Blood Urea Nitrogen 17 mg/dl (7-17); Creatinine Clearance Estimated 76 mL/min (50-200); Estimated Glomerular Filt Rate 74 ml/min (>60); GFR (African American) 89 ML/MIN (>60)
[2021-07-13 10:07] LABS: Albumin Level 4.4 g/dl (3.5-5.0); Albumin/Globulin Ratio 1.3 (1.1-1.8); Alkaline Phosphatase 105 U/L (38-126); Anion Gap 11.7 mEq/L (5-15); Bilirubin,Total 0.8 mg/dl (0.2-1.3); Calcium 9.8 mg/dl (8.4-10.2); Carbon Dioxide 26 mmol/L (22.0-30.0); Globulin 3.3 g/dL (1.3-3.2); Glucose 83 mg/dl (74-100); Total Protein,Serum 7.7 g/dl (6.3-8.2)
[2021-07-13 10:07] LABS: Appearance,Urine CLEAR (Clear); Bilirubin,Urine Negative (Negative); Blood, Urine 3+ (Negative); Color,Urine YELLOW (Yellow); Glucose,Urine (UA) Negative (Negative); Ketones,Urine Negative (Negative); Leukocyte Esterase,Urine 1+ (Negative); Nitrate,Urine Negative (Negative); PH,Urine 7.5 (5.0-8.5); Protein,Urine TRACE (Negative)
--- NOTE | 2021-07-13 10:17 | PC.NURSE ---
Pt in room
[2021-07-13 10:43] LABS: Bacteria,Urine 1+ /lpf
[2021-07-13 10:55] VITALS: BP 198/71; PULSE 56; O2SAT 100
[2021-07-13 11:00] VITALS: BP 219/93; PULSE 56; O2SAT 100
[2021-07-13 11:27] VITALS: BP 198/71; PULSE 56; RESP 18; TEMP 37.1; O2SAT 100
== END 2021-07-13 11:29 | disposition home or self-care (01) ==
PROVIDERS: Emergency Provider Emergency Medicine; PCP Emergency Medicine
DX: R30.0 Dysuria (principal); R31.9 Hematuria, unspecified; M54.50 Low back pain, unspecified; R11.0 Nausea; R19.7 Diarrhea, unspecified; I10 Essential (primary) hypertension; K21.9 Gastro-esophageal reflux disease without esophagitis; J44.9 Chronic obstructive pulmonary disease, unspecified; F41.9 Anxiety disorder, unspecified; F32.A Depression, unspecified; Z80.0 Family history of malignant neoplasm of digestive organs; Z88.5 Allergy status to narcotic agent; Z88.8 Allergy status to other drugs, medicaments and biological substances; Z82.49 Family history of ischemic heart disease and other diseases of the circulatory system; Z80.9 Family history of malignant neoplasm, unspecified
CPT/HCPCS: 80053; 81001; 85025; 87086; 96361; 96365; 96374; 99283; 99284; J2405

== ENCOUNTER 2021-09-19 16:33 | Emergency (ER) | payer OTHER, SELFPAY ==
[2021-09-19 16:40] VITALS: BP 137/86; PULSE 67; RESP 19; TEMP 36.9; O2SAT 97; BMI 20.9
--- NOTE | 2021-09-19 17:03 | HMH.EDUTC ---
[facility] [place] Disposition Clinical Impression: Cat bite Qualifiers: Encounter type: initial encounter Qualified Code(s): W55.01XA - Bitten by cat, initial encounter Disposition: Home, Self-Care Condition on Discharge: Good Instructions: Doxycycline, DI for Cat Bite Additional Instructions: Watch area for worsening signs of infection such as swelling, redness and streaks if any worsening follow up immediately or straight to ER Return if needed Take medication as prescribed Return if needed Straight to ER if any worsening of signs of infection Prescriptions: Doxycycline Monohydrate [Doxycycline Preston 100mg Tab] 100 mg PO BID 10 Days #20 tab Transmission Status: Pending to [facility] Referrals: Macho Germain MD [Primary Care Provider] - As needed Forms: Work/School Release Time of Disposition: 17:07 Medical Decision Making - Remi Inquiry Pt receiving controlled substance: No Remi was queried for this patient: No Vital Signs: 09/19/21 16:40 Temperature 98.4 F Temperature Source Oral Pulse Rate [Right Brachial] 67 Respiratory Rate 19 Blood Pressure [Right Arm] 137/86 Blood Pressure Mean [Right Arm] 103 Blood Pressure Source [Right Arm] Automatic Cuff Blood Pressure Position [Right Arm] Sitting 02 Sat by Pulse Oximetry 97 Oxygen Delivery Method Room Air [facility] [place] HPI - General Stated complaint: AO 09/18/21 Cat bite Right arm Time Seen by Provider: 09/19/21 17:04 Mode of Arrival: Ambulatory Source of Information: Patient Limitations: No Limitations Description of Symptoms (Recalled from Triage Doc. by RN): PATIENT C/O CAT BITE TO RIGHT FOREARM YESTERDAY HEENT Symptoms (Recalled from RN notes): No Resp Symptoms (Recalled from RN notes): No Skin Symptoms (Recalled from RN notes): Yes MS Symptoms (Recalled from RN notes): No Functional Status (Recalled from RN notes): WNL - History of Present Illness Provider Complaint: Patient states that they have a cat at work and yesterday it bite her on her right forearm States that today she noticed it was swelling and looking more red so she came in to get it checked out - Related Data Previous Rx's Medication Instructions Recorded citalopram 20 mg tablet 20 mg PO DAILY #30 tab 03/13/21 clonazepam 0.5 mg tablet 0.5 mg PO BID PRN #60 tab 05/02/21 gabapentin 600 mg tablet 600 mg PO QID #120 tab 05/02/21 hydrocodone 5 mg-acetaminophen 325 1 tab PO TID PRN #90 tab 05/02/21 mg tablet Ciprofloxacin HCl [Cipro 500mg 500 mg PO BID #14 tab 07/13/21 Tab] Ondansetron [Zofran 4mg ODT] 4 mg PO TIDP PRN #10 tab 07/13/21 atorvastatin 10 mg tablet See Rx Instructions .ROUTE 09/11/21 .COMPLEX #90 tablet Doxycycline Monohydrate 100 mg PO BID 10 Days #20 tab 09/19/21 [Doxycycline Preston 100mg Tab] Allergies Allergy/AdvReac Type Severity Reaction Status Date / Time amlodipine [From Norvasc] Allergy Severe Redness of Verified 05/02/21 15:35 Skin furosemide [From Lasix] Allergy Severe swelling, Verified 05/02/21 15:35 pain, rash codeine [CODEINE] Allergy Intermediate I-HIVES Verified 05/02/21 15:35 morphine [MORPHINE] Allergy Intermediate I-HIVES Verified 05/02/21 15:35 penicillin G [PENICILLIN G] Allergy Intermediate I-HIVES Verified 05/02/21 15:35 - Worker's Comp Is this a Worker's Comp case?: No [facility] History - Hepatitis A Screen Attestation statement:: This patient has been screened for Hepatitis A risk factors. I have reviewed the patient's past medical history: Yes Medical History: Reports:: Anxiety, Chronic Obstructive Pulmonary Disease (COPD), Depression, Gastroesophageal Reflux Disease(GERD), Hypertension Denies:: Diabetes Mellitus Type 1, Diabetes Mellitus Type 2, Pulmonary Embolism, Seizures, Transient Ischemic Attacks (TIA) Comment: ANXIETY. HYPERTENSION Other Surgeries: Yes: Cardiac Catheterization, Cholecystectomy, Colonoscopy, , Dilation and Curettage, Other Amputation: No Fractures: No Comment
[2021-09-19 17:08] VITALS: BP 137/86; PULSE 67; RESP 19; TEMP 36.9; O2SAT 97
== END 2021-09-19 17:11 | disposition home or self-care (01) ==
PROVIDERS: Emergency Provider Nurse Practitioner; PCP Emergency Medicine
DX: S51.851A Open bite of right forearm, initial encounter (principal); W55.01XA Bitten by cat, initial encounter
CPT/HCPCS: 99212; G0463

== ENCOUNTER 2021-11-21 10:12 | Emergency (ER) | payer OTHER, SELFPAY ==
[2021-11-21 10:13] VITALS: BP 163/79; PULSE 76; RESP 18; TEMP 37.1; O2SAT 98; BMI 21.6; BMI 22.1
--- NOTE | 2021-11-21 10:16 | XR_ITS ---
FINAL REPORT CLINICAL HISTORY: sob FINDINGS: A portable view of the chest was obtained. Comparison is made to a prior exam dated January 16, 2021. Cardiac and mediastinal silhouettes are within normal limits. The lungs are clear. There is no pleural effusion or pneumothorax. IMPRESSION: No acute process on this portable exam. Reviewed, Interpreted and Dictated by Ariella Justin MD Transcribed by Matias Vargas Authenticated and [facility]
[2021-11-21 10:27] LABS: Coronavirus 19, PCR Not Detected (NotDetected); Influenza A, PCR Not Detected (NotDetected); Influenza B, PCR Not Detected (NotDetected)
--- NOTE | 2021-11-21 10:37 | ECG_ITS ---
APPROVED REPORT Exam: Resting ECG HR:64 bpm ECG Measurements Heart Rate 64 AXES OR 124 P 47 QRSd 86 QRS -14 QT 426 T 33 QTc 436 Conclusion SINUS RHYTHM NORMAL ECG UNCONFIRMED REPORT Electronically signed by : Thomas Hernandez MD 11/23/2021 08:06:55
[2021-11-21 10:38] LABS: Alanine Aminotransferase 25 U/L (12-78); Albumin/Globulin Ratio 1.3 (1.1-1.8); Alkaline Phosphatase 105 U/L (38-126); Anion Gap 10.6 mEq/L (5-15); Aspartate Amino Transferase 31 U/L (14-36); Bilirubin,Total 0.3 mg/dl (0.2-1.3); Blood Urea Nitrogen 20 mg/dl (7-17); Calcium 9.8 mg/dl (8.4-10.2); Carbon Dioxide 26 mmol/L (22.0-30.0); Chloride 109 mmol/L (98-107); Creatinine Clearance Estimated 70 mL/min (50-200); Estimated Glomerular Filt Rate 73 ml/min (>60); GFR (African American) 89 ML/MIN (>60); Globulin 3.2 g/dL (1.3-3.2); Glucose 119 mg/dl (74-100); Potassium 3.6 mmoL/L (3.5-5.1); Sodium 142 mmol/L (136-145); Total Protein,Serum 7.2 g/dl (6.3-8.2)
[2021-11-21 10:39] LABS: Basophils # 0.1 K/mm3 (0-0.2); Basophils % 0.6 % (0.1-2.0); Eosinophils # 0.2 K/mm3 (0.0-0.4); Eosinophils % 2.4 % (0.1-12.0); Hematocrit 41.6 % (37.0-47.0); Hemoglobin 13.3 g/dL (12.2-16.2); Lymphocytes # 1.9 K/mm3 (0.7-4.5); Lymphocytes % 20.5 % (10-50); Mean Corpuscular HGB Conc 31.9 g/dL (31.8-35.4); Mean Corpuscular Hemoglobin 28.8 pg (27.0-31.2); Mean Corpuscular Volume 90.3 fl (81-99); Mean Platelet Volume 7.9 fl (7.4-10.4); Monocytes # 0.5 K/mm3 (0.1-1.0); Neutrophils # 6.6 K/mm3 (1.8-7.8); Neutrophils % 71.5 % (37.0-80.0); Platelet Count 356 K/mm3 (142-424); Red Cell Distribution Width 13.8 % (11.5-17.5); White Blood Count 9.2 K/mm3 (4.8-10.8)
[2021-11-21 10:45] LABS: Microscopic, Urine URINE MICROSCOPIC (MICROSCOPIC)
[2021-11-21 10:48] LABS: Appearance,Urine CLOUDY (Clear); Bilirubin,Urine Negative (Negative); Blood, Urine 3+ (Negative); Color,Urine YELLOW (Yellow); Glucose,Urine (UA) Negative (Negative); Ketones,Urine TRACE (Negative); Leukocyte Esterase,Urine 2+ (Negative); Nitrate,Urine POSITIVE (Negative); PH,Urine 6.5 (5.0-8.5); Protein,Urine 2+ (Negative)
[2021-11-21 10:52] VITALS: BP 147/74; PULSE 63; RESP 16; O2SAT 99
[2021-11-21 10:56] LABS: Troponin I < 0.01 ng/ml (0.00-0.034)
--- NOTE | 2021-11-21 10:56 | HMH.EDGENADL ---
ED Disposition Clinical Impression: Anxiety Fatigue Qualifiers: Fatigue type: unspecified Qualified Code(s): R53.83 - Other fatigue Depression Qualifiers: Depression Type: unspecified Qualified Code(s): F32.A - Depression, unspecified UTI (urinary tract infection) Qualifiers: Urinary tract infection type: acute cystitis Hematuria presence: without hematuria Qualified Code(s): N30.00 - Acute cystitis without hematuria Disposition: Home, Self-Care Condition on Discharge: Good Instructions: DI for Urinary Tract Infection (UTI), DI for Fatigue Additional Instructions: Additional instructions for URINARY TRACT INFECTION: Take antibiotic as prescribed. See your physician in 2-3 days for follow up and culture results. Return immediately if you have an uncontrollable fever greater than 102 degrees, severe back or abdominal pain, inability to urinate, or repetitive vomiting. Depression and anxiety call your primary care provider today to discuss your medications and to arrange follow-up. Return the emergency department if worsening symptoms. Prescriptions: Cefdinir [Omnicef 300mg Capsule] 300 mg PO BID #14 cap Transmission Status: Received by [facility] Referrals: Chevy Valente APRN [Primary Care Provider] - - Critical Care Critical Care Time: No Attestation: On 11/21/21, the high probability of a clinically significant, sudden or life threatening deterioration of the following system(s) required my full and direct attention, intervention and personal management. The time I documented below is in addition to time spent performing reported procedures but includes the following listed in this critical care notation. Medical Decision Making - Remi Inquiry Pt receiving controlled substance: No Vital Signs: 11/21/21 10:13 11/21/21 10:52 11/21/21 11:00 Temperature 98.7 F Temperature Source Oral Pulse Rate 63 61 Pulse Rate [Radial] 76 Respiratory Rate 18 16 17 Blood Pressure 147/74 H 155/75 H Blood Pressure [Right Arm] 163/79 H Blood Pressure Mean 98 101 Blood Pressure Mean [Right Arm] 107 Blood Pressure Position [Right Arm] Sitting 02 Sat by Pulse Oximetry 98 99 99 Oxygen Delivery Method Room Air Room Air 11/21/21 11:35 Temperature 98.4 F Temperature Source Pulse Rate 66 Pulse Rate [Radial] Respiratory Rate 20 Blood Pressure 159/83 H Blood Pressure [Right Arm] Blood Pressure Mean Blood Pressure Mean [Right Arm] Blood Pressure Position [Right Arm] 02 Sat by Pulse Oximetry Oxygen Delivery Method - Lab Data Lab Results 11/21/21 10:15: WBC 9.2, RBC 4.60, Hgb 13.3, Hct 41.6, MCV 90.3, MCH 28.8, MCHC 31.9, RDW 13.8, Plt Count 356, MPV 7.9, Neut % (Auto) 71.5, Lymph % (Auto) 20.5, [place] % (Auto) 5.0, Eos % (Auto) 2.4, Baso % (Auto) 0.6, Neut # (Auto) 6.6, Lymph # (Auto) 1.9, [place] # (Auto) 0.5, Eos # (Auto) 0.2, Baso # (Auto) 0.1 11/21/21 10:15: Sodium 142, Potassium 3.6, Chloride 109 H, Carbon Dioxide 26, Anion Gap 10.6, BUN 20 H, Creatinine 0.80, Estimated Creat Clear 70, Estimated GFR 73, Est GFR ( Amer) 89, Glucose 119 H, Calcium 9.8, Total Bilirubin 0.3, AST 31, ALT 25, Alkaline Phosphatase 105, Troponin I < 0.01, Total Protein 7.2, Albumin 4.0, Globulin 3.2, Albumin/Globulin Ratio 1.3 11/21/21 10:15: SARS-CoV-2 (PCR) Not detected, Influenza A Untype (PCR) Not detected, Influenza Type B (PCR) Not detected 11/21/21 10:38: Urine Color Yellow, Urine Appearance Cloudy, Urine pH 6.5, Ur Specific [place] 1.020, Urine Protein 2+, Urine Glucose (UA) Negative, Urine Ketones Trace, Urine Blood 3+, Urine Nitrate Positive, Urine Bilirubin Negative, Urine Urobilinogen 1.0, Ur Leukocyte Esterase 2+ A, Urine RBC 20-50, Urine WBC 20-50, Ur Squamous Epith Cells 3-5, Urine Bacteria 2+, Urine Mucus Trace Result diagrams: 11/21/21 10:15 11/21/21 10:15 Orders (Tests/Meds): ED MEDICATIONS Discontinued Medications Generic Name Dose Route Start Last Adm
[2021-11-21 11:00] VITALS: BP 155/75; PULSE 61; RESP 17; O2SAT 99
[2021-11-21 11:16] LABS: Bacteria,Urine 2+ /lpf; Mucus,Urine Trace /lpf; RBC,Urine 20-50 #/hpf (0-3); WBC,Urine 20-50 #/hpf (0-3)
--- NOTE | 2021-11-21 11:21 | PC.NURSE ---
PT GIVEN WARM BLANKETS
[2021-11-21 11:35] VITALS: BP 159/83; PULSE 66; RESP 20; TEMP 36.9; O2SAT 99
== END 2021-11-21 11:42 | disposition home or self-care (01) ==
PROVIDERS: Emergency Provider Emergency Medicine; PCP Nurse Practitioner Family
DX: N30.00 Acute cystitis without hematuria (principal); R07.2 Precordial pain; R06.02 Shortness of breath; R53.82 Chronic fatigue, unspecified; R53.1 Weakness; Z20.822 Contact with and (suspected) exposure to COVID-19; I11.0 Hypertensive heart disease with heart failure; I50.30 Unspecified diastolic (congestive) heart failure; K21.9 Gastro-esophageal reflux disease without esophagitis; M54.50 Low back pain, unspecified; J44.9 Chronic obstructive pulmonary disease, unspecified; F32.A Depression, unspecified; F41.9 Anxiety disorder, unspecified; Z88.0 Allergy status to penicillin; Z88.5 Allergy status to narcotic agent; Z88.8 Allergy status to other drugs, medicaments and biological substances; Z82.49 Family history of ischemic heart disease and other diseases of the circulatory system; Z80.9 Family history of malignant neoplasm, unspecified
CPT/HCPCS: 71045; 80053; 81001; 84484; 85025; 87086; 87088; 87186; 93005; 96374; 99285; C9803; J0696; U0003; U0005

== ENCOUNTER 2021-12-31 09:16 | Emergency (ER) | payer OTHER, SELFPAY ==
[2021-12-31] VITALS (9 sets, daily range): BP systolic 115–196; BP diastolic 69–116; PULSE 65–91; RESP 18–20; TEMP 36.5–36.8; O2SAT 96–100; BMI 20.7
--- NOTE | 2021-12-31 09:19 | XR_ITS ---
FINAL REPORT CLINICAL HISTORY: chest pain COMPARISON: 11/21/2021 FINDINGS: The heart size is normal. The mediastinum is normal. There is no focal infiltrate or edema. There are no pleural effusions. There is no pneumothorax. There is no osseous abnormality. IMPRESSION: No acute cardiopulmonary process Reviewed, Interpreted and Dictated by Jose Mello III, MD Transcribed by Matias Vargas Authenticated and [facility]
--- NOTE | 2021-12-31 09:19 | ECG_ITS ---
APPROVED REPORT Exam: Resting ECG HR:66 bpm ECG Measurements Heart Rate 66 AXES [place] 128 P 44 QRSd 89 QRS -24 QT 413 T 30 QTc 426 Conclusion SINUS RHYTHM BORDERLINE LEFT AXIS DEVIATION [QRS AXIS < -20] BORDERLINE ECG UNCONFIRMED REPORT Electronically signed by : Thomas Hernandez MD 12/31/2021 17:32:23
--- NOTE | 2021-12-31 09:22 | HMH.EDGENADL ---
Discharge Plan Disposition Patient Disposition: Home, Self-Care Condition: Good Chief Complaint: Anxiety Prescriptions Prescriptions: No Action citalopram 20 mg tablet 20 mg PO DAILY Qty: 30 2RF clonazepam [Klonopin] 0.5 mg tablet 0.5 mg PO BID PRN (Reason: anxiety) Qty: 60 2RF hydrocodone-acetaminophen 5-325 mg tablet 1 tab PO TID PRN (Reason: pain) Qty: 90 0RF gabapentin 600 mg tablet 600 mg PO QID Qty: 120 2RF Vraylar 1.5 mg capsule 1.5 mg PO DAILY Qty: 30 2RF Rx Instructions: DX. F31.3 atorvastatin 10 mg tablet See Rx Instructions .ROUTE .COMPLEX Qty: 90 1RF Dose Instruction: TAKE ONE TABLET BY MOUTH ONCE A DAY FOR CHOLESTEROL Rx Instructions: TAKE ONE TABLET BY MOUTH ONCE A DAY FOR CHOLESTEROL ondansetron 4 MG tablet,disintegrating 4 mg PO TIDP PRN (Reason: Nausea And Vomiting) Qty: 10 0RF cefdinir 300 MG capsule 300 mg PO BID Qty: 14 0RF Activity Restrictions/Add. Instructions Additional Instructions/Restrictions: You have been evaluated for chest pain, palpitations. This is possibly due to anxiety or chest wall pain. Please monitor your symptoms closely. Follow-up with your primary care doctor. Return to the emergency department at once for any new or worsening symptoms, pain, difficulty breathing, other concerns. Clinical Impressions Clinical Impression: Heart palpitations, Chest pain Instructions Patient Instructions: DI for Palpitations, DI for Atypical Chest Pain Discharge ED Provider: Raina Estrada Adult HPI General Chief complaint: Anxiety Stated complaint: ANXIETY Time Seen by Provider: 12/31/21 09:20 History of Present Illness HPI narrative: 61-year-old female presenting to the emergency department with anxiety, palpitations, chest tightness. Symptoms started this morning. She feels like her heart is beating fast. Feels like her chest is tight, squeezing sensation. Is located in the front. No radiation to the jaw, arm, back. No associated cough, fevers, chills, shortness of breath. No recent exertional chest pain. Nothing seems to make this pain better or worse. She has had pain like this before, due to anxiety. She tried taking her clonazepam this morning without relief. She has been under significant stress, home and family life. Denies any physical trauma. Denies any thoughts of hurting herself or anyone else. Related Data Previous Rx's Medication Instructions Recorded citalopram 20 mg tablet 20 mg PO DAILY #30 tabs 03/13/21 clonazepam 0.5 mg tablet (Klonopin) 0.5 mg PO BID PRN anxiety #60 tabs 05/02/21 gabapentin 600 mg tablet 600 mg PO QID pain #120 tabs 05/02/21 hydrocodone 5 mg-acetaminophen 325 1 tab PO TID PRN pain #90 tabs 05/02/21 mg tablet ondansetron 4 mg disintegrating 4 mg PO TIDP PRN Nausea And 07/13/21 tablet Vomiting #10 tabs atorvastatin 10 mg tablet See Rx Instructions .Route 09/11/21 .COMPLEX #90 tabs cariprazine 1.5 mg capsule 1.5 mg PO DAILY #30 caps 10/15/21 (Vraylar) cefdinir 300 mg capsule 300 mg PO BID #14 caps 11/21/21 Allergies Allergy/AdvReac Type Severity Reaction Status Date / Time amlodipine [From Norvasc] Allergy Severe Redness of Verified 10/15/21 15:51 Skin furosemide [From Lasix] Allergy Severe swelling, Verified 10/15/21 15:51 pain, rash codeine [CODEINE] Allergy Intermediate I-HIVES Verified 10/15/21 15:51 morphine [MORPHINE] Allergy Intermediate I-HIVES Verified 10/15/21 15:51 penicillin G [PENICILLIN G] Allergy Intermediate I-HIVES Verified 10/15/21 15:51 [facility] Medical History (Updated 12/31/21 @ 10:34 by Raina Estrada DO) Anxiety COPD (chronic obstructive pulmonary disease) Diastolic dysfunction GERD (gastroesophageal reflux disease) History of left heart catheterization (LHC) Palpitations Surgical History (Updated 12/31/21 @ 09:34 by Tsering De La Rosa RN) History of section History of cholecystectomy History of colono
--- NOTE | 2021-12-31 09:26 | PC.NURSE ---
XR AT BEDSIDE
--- NOTE | 2021-12-31 09:26 | PC.NURSE ---
RADIOLOGY HERE DOING PORT CHEST
--- NOTE | 2021-12-31 09:27 | PC.NURSE ---
BLOOD SENT TO LAB
[2021-12-31 09:35] LABS: Basophils # 0.1 K/mm3 (0-0.2); Eosinophils # 0.2 K/mm3 (0.0-0.4); Hematocrit 41.3 % (37.0-47.0); Hemoglobin 12.8 g/dL (12.2-16.2); Lymphocytes # 1.5 K/mm3 (0.7-4.5); Lymphocytes % 18.1 % (10-50); Mean Corpuscular Hemoglobin 28.7 pg (27.0-31.2); Mean Corpuscular Volume 92.8 fl (81-99); Mean Platelet Volume 8.3 fl (7.4-10.4); Monocytes # 0.5 K/mm3 (0.1-1.0); Monocytes % 5.3 % (1.7-9.3); Neutrophils # 6.2 K/mm3 (1.8-7.8); Neutrophils % 73.6 % (37.0-80.0); Platelet Count 325 K/mm3 (142-424); Red Blood Count 4.45 M/mm3 (4.20-5.40); Red Cell Distribution Width 13.9 % (11.5-17.5); White Blood Count 8.4 K/mm3 (4.8-10.8)
[2021-12-31 09:51] LABS: Alanine Aminotransferase 19 U/L (12-78); Albumin Level 3.8 g/dl (3.5-5.0); Albumin/Globulin Ratio 1.3 (1.1-1.8); Alkaline Phosphatase 89 U/L (38-126); Anion Gap 9.5 mEq/L (5-15); Aspartate Amino Transferase 29 U/L (14-36); Bilirubin,Total 0.3 mg/dl (0.2-1.3); Blood Urea Nitrogen 20 mg/dl (7-17); Calcium 9.2 mg/dl (8.4-10.2); Carbon Dioxide 30 mmol/L (22.0-30.0); Chloride 106 mmol/L (98-107); Creatinine Clearance Estimated 72 mL/min (50-200); Estimated Glomerular Filt Rate 73 ml/min (>60); GFR (African American) 89 ML/MIN (>60); Glucose 75 mg/dl (74-100); Potassium 3.5 mmoL/L (3.5-5.1); Sodium 142 mmol/L (136-145); Total Protein,Serum 6.8 g/dl (6.3-8.2)
--- NOTE | 2021-12-31 10:03 | PC.NURSE ---
PT AMBULATED UP TO BATHROOM
[2021-12-31 10:14] LABS: Troponin I < 0.01 ng/ml (0.00-0.034)
[2021-12-31 10:20] LABS: Thyroid Stimulating Hormone 2.04 uIU/mL (0.465-4.68)
--- NOTE | 2021-12-31 10:43 | PC.NURSE ---
IN WITH PT GOING OVER RESULTS , WE ARE GONNA REPEAT HER 3 HR TROP WHEN DUE
--- NOTE | 2021-12-31 10:51 | PC.NURSE ---
ED MD AT BEDSIDE TO DISCUSS POC WITH PT. NO NEEDS AT THIS TIME
--- NOTE | 2021-12-31 11:10 | PC.NURSE ---
SAYS A 2 HR TROP WILL BE FINE SINCE PT IS WANTING TO GO HOME , LAB NOTIFIED
--- NOTE | 2021-12-31 11:17 | PC.NURSE ---
LAB HERE FOR 2ND TROP
--- NOTE | 2021-12-31 11:20 | PC.NURSE ---
LUNCH TRAY ORDERED
--- NOTE | 2021-12-31 11:29 | PC.NURSE ---
PT AMBULATING IN ROOM, NO NEEDS VOICED
--- NOTE | 2021-12-31 11:46 | PC.NURSE ---
DIETARY NOTIFIED AGAIN FOR LUNCH TRAY
[2021-12-31 11:47] LABS: Troponin I < 0.01 ng/ml (0.00-0.034)
--- NOTE | 2021-12-31 12:03 | PC.NURSE ---
pt sitting up in bed eating lunch tray
== END 2021-12-31 12:00 | disposition home or self-care (01) ==
PROVIDERS: Emergency Provider Emergency Medicine; PCP Nurse Practitioner Family
DX: R00.2 Palpitations; I50.30 Unspecified diastolic (congestive) heart failure; J44.9 Chronic obstructive pulmonary disease, unspecified; K21.9 Gastro-esophageal reflux disease without esophagitis; Z79.1 Long term (current) use of non-steroidal anti-inflammatories (NSAID); Z79.899 Other long term (current) drug therapy; Z88.0 Allergy status to penicillin; Z88.5 Allergy status to narcotic agent; Z88.8 Allergy status to other drugs, medicaments and biological substances
CPT/HCPCS: 36415; 71045; 80053; 84443; 84484; 85025; 93005; 99285

== ENCOUNTER 2022-04-01 11:02 | Emergency (ER) | payer OTHER, SELFPAY ==
[2022-04-01 12:33] VITALS: BP 176/78; PULSE 68; RESP 18; TEMP 36.9; O2SAT 100; BMI 20.2
--- NOTE | 2022-04-01 12:42 | EXP.UTC ---
Discharge Plan Disposition Patient Disposition: Home, Self-Care Condition: Good Prescriptions Prescriptions: New ondansetron 4 mg tablet,disintegrating 4 mg PO Q8H PRN (Reason: nausea and vomiting) Qty: 10 0RF cefdinir 300 mg capsule 300 mg PO BID 7 Days Qty: 14 0RF oseltamivir [Tamiflu] 75 mg capsule 75 mg PO BID 5 Days Qty: 10 0RF No Action clonazepam 0.5 mg tablet 0.5 mg PO Q12H PRN (Reason: anxiety) Qty: 60 1RF Rx Instructions: Needs appt quetiapine [Seroquel] 50 mg tablet 50 mg PO DAILY Qty: 30 2RF atorvastatin 10 mg tablet See Rx Instructions .ROUTE .COMPLEX Qty: 90 1RF Dose Instruction: TAKE ONE TABLET BY MOUTH ONCE A DAY FOR CHOLESTEROL Rx Instructions: TAKE ONE TABLET BY MOUTH ONCE A DAY FOR CHOLESTEROL Referrals Follow up/Referrals: Macho Germain MD [Primary Care Provider] - See instructions Activity Restrictions/Add. Instructions Additional Instructions/Restrictions: Start Tamiflu today if you are going to take it. Discussed risk and possible benefits. Lots of rest Increase Fluids water, Gatorade, powerade, pedialyte,if infant/toddler/child Alternate Tylenol and / or ibuprofen as discussed for fever, aches, chills Follow up IMMEDIATELY with your family doctor for new or worsening Symptoms OR no noticeable improvement over the next 48-72 hours, 911 for difficulty or breathing You or your child area contagious until no fever, aches, chills for 24 hours with medication for symptoms Help Prevent the spread of influenza: ?Wash your hands often. Use soap and water. Wash your hands after you use the bathroom, change a child's diapers, or sneeze. Wash your hands before you prepare or eat food. Use gel hand cleanser that has 60% alcohol, when soap and water are not available. Do not touch your eyes, nose, or mouth unless you have washed your hands first. Cover your mouth when you sneeze or cough. Cough into a tissue or the bend of your arm. If you use a tissue, throw it away immediately and wash your hands. Clean shared items with a germ-killing area cleaner. Clean table surfaces, doorknobs, and light switches. Do not share towels, silverware, and dishes with people who are sick. Wash bed sheets, towels, silverware, and dishes with soap and water. Wear a mask over your mouth and nose if you are sick. The face mask may help protect others from becoming infected with the flu. Wear the mask when in common areas of your home or if you seek care with a healthcare provider. Stay away from others if you are sick. Stay at home until 24 hours after your fever and symptoms are gone. *Increase fluids. Water not Soda or Tea *Start antibiotic immediately and be sure to take as ordered for the FULL length of time although you should start to see improvement over the next 48 hours *Be SURE to follow up anytime for new or worsening symptoms with your family doctor. AND in 48 hours for urine culture results with your family doctor, if you do not have a doctor then you may call back to the [facility] for urine culture results and further treatment. We do recommend that you choose and establish care with a Primary Care Physician. ?AND follow up with them ?in 10-14 days to repeat UA to ensure infection is resolved and blood no longer present *Be sure to let your PCP know that we sent urine cultures from the [facility] so they can follow up to ensure that you area the on the correct antibiotic Call your doctor office and make appointment for 48 hours (2 days from today) ?to follow up and get the results of your urine culture and further treatment Clinical Impressions Clinical Impression: Dysuria, Flu-like symptoms Stand Alone Forms Stand Alone Forms: Work/School Release Instructions Patient Instructions: Oseltamivir, DI for Urinary Tract Infection
[2022-04-01 12:54] LABS: Apearance,Urine Clear (Clear); Color,Urine Yellow (Yellow)
[2022-04-01 12:55] LABS: Bilirubin,Urine Negative (Negative); Blood, Urine 3+ (Negative); Glucose,Urine (UA) Negative (Negative); Ketones,Urine Negative (Negative); Protein,Urine Negative (Negative); Specific Gravity, Urine 1.015 (1.005-1.030); UTC Leukocyte Esterase,Urine Trace (Negative); UTC Nitrate,Urine Negative (Negative); Urobilinogen,Urine 1 EU/dl (0.2)
[2022-04-01 13:10] LABS: Coronavirus 19, PCR Not Detected (NotDetected); Influenza A, PCR Not Detected (NotDetected); Influenza B, PCR Not Detected (NotDetected)
[2022-04-01 13:12] VITALS: BP 176/78; PULSE 68; RESP 18; TEMP 36.9; O2SAT 100
== END 2022-04-01 13:13 | disposition home or self-care (01) ==
PROVIDERS: Emergency Provider Nurse Practitioner; PCP Emergency Medicine
DX: R30.0 Dysuria (principal); R68.89 Other general symptoms and signs
CPT/HCPCS: 81003; 87086; 87088; 87186; 99212; C9803; G0463; U0003; U0005

== ENCOUNTER 2022-04-13 17:03 | Emergency (ER) | payer OTHER, SELFPAY ==
[2022-04-13 19:40] VITALS: BP 148/95; PULSE 71; RESP 20; TEMP 36.9; O2SAT 97; BMI 18.8
--- NOTE | 2022-04-13 19:47 | EXP.UTC ---
Discharge Plan Disposition Patient Disposition: Home, Self-Care Condition: Good Prescriptions Prescriptions: New oseltamivir [Tamiflu] 75 mg capsule 75 mg PO Q12H 5 Days Qty: 10 0RF No Action clonazepam 0.5 mg tablet 0.5 mg PO Q12H PRN (Reason: anxiety) Qty: 60 1RF Rx Instructions: Needs appt quetiapine [Seroquel] 50 mg tablet 50 mg PO DAILY Qty: 30 2RF atorvastatin 10 mg tablet See Rx Instructions .ROUTE .COMPLEX Qty: 90 1RF Dose Instruction: TAKE ONE TABLET BY MOUTH ONCE A DAY FOR CHOLESTEROL Rx Instructions: TAKE ONE TABLET BY MOUTH ONCE A DAY FOR CHOLESTEROL ondansetron 4 mg tablet,disintegrating 4 mg PO Q8H PRN (Reason: nausea and vomiting) Qty: 10 0RF cefdinir 300 mg capsule 300 mg PO BID 7 Days Qty: 14 0RF oseltamivir [Tamiflu] 75 mg capsule 75 mg PO BID 5 Days Qty: 10 0RF Referrals Follow up/Referrals: Macho Germain MD [Primary Care Provider] - See instructions Activity Restrictions/Add. Instructions Additional Instructions/Restrictions: Start Tamiflu today if you are going to take it. Discussed risk and possible benefits. Lots of rest Increase Fluids water, Gatorade, powerade, pedialyte,if infant/toddler/child Alternate Tylenol and / or ibuprofen as discussed for fever, aches, chills Follow up IMMEDIATELY with your family doctor for new or worsening Symptoms OR no noticeable improvement over the next 48-72 hours, 911 for difficulty or breathing You or your child area contagious until no fever, aches, chills for 24 hours with medication for symptoms Help Prevent the spread of influenza: ?Wash your hands often. Use soap and water. Wash your hands after you use the bathroom, change a child's diapers, or sneeze. Wash your hands before you prepare or eat food. Use gel hand cleanser that has 60% alcohol, when soap and water are not available. Do not touch your eyes, nose, or mouth unless you have washed your hands first. Cover your mouth when you sneeze or cough. Cough into a tissue or the bend of your arm. If you use a tissue, throw it away immediately and wash your hands. Clean shared items with a germ-killing sewer cleaner. Clean table surfaces, doorknobs, and light switches. Do not share towels, silverware, and dishes with people who are sick. Wash bed sheets, towels, silverware, and dishes with soap and water. Wear a mask over your mouth and nose if you are sick. The face mask may help protect others from becoming infected with the flu. Wear the mask when in common areas of your home or if you seek care with a healthcare provider. Stay away from others if you are sick. Stay at home until 24 hours after your fever and symptoms are gone. Clinical Impressions Clinical Impression: Influenza A Stand Alone Forms Stand Alone Forms: Work/School Release Instructions Patient Instructions: DI for Influenza -- Adult Discharge ED Provider: Kaylen Bender [facility] General Stated complaint: runny nose, cough, body aches Time Seen by Provider: 04/13/22 19:47 History of Present Illness Provider Complaint: Patient states that she has been having body aches, chills, fever, headache and feels like she may have the flu States that today she was still feeling bad and chilling to the bone so she came in to get checked out Related Data Previous Rx's Medication Instructions Recorded atorvastatin 10 mg tablet See Rx Instructions .Route 01/09/22 .COMPLEX #90 tabs clonazepam 0.5 mg tablet 0.5 mg PO Q12H PRN anxiety #60 tabs 02/13/22 quetiapine 50 mg tablet (Seroquel) 50 mg PO DAILY #30 tabs 02/13/22 cefdinir 300 mg capsule 300 mg PO BID 7 days #14 caps 04/01/22 ondansetron 4 mg disintegrating 4 mg PO Q8H PRN nausea and 04/01/22 tablet vomiting #10 tabs oseltamivir 75 mg capsule (Tamiflu) 75 mg PO BID 5 days #10 cap
[2022-04-13 19:58] LABS: UTC Influenza A Antigen Positive (Negative); UTC Influenza B Antigen Negative (Negative)
[2022-04-13 19:59] VITALS: BP 148/95; PULSE 71; RESP 20; TEMP 36.9; O2SAT 97
== END 2022-04-13 20:03 | disposition home or self-care (01) ==
PROVIDERS: Emergency Provider Nurse Practitioner; PCP Emergency Medicine
DX: J10.1 Influenza due to other identified influenza virus with other respiratory manifestations (principal)
CPT/HCPCS: 87804; 99212; G0463

== ENCOUNTER 2022-04-30 09:26 | Emergency (ER) | payer OTHER, SELFPAY ==
[2022-04-30] VITALS (7 sets, daily range): BP systolic 143–228; BP diastolic 88–104; PULSE 70–80; RESP 18; TEMP 36.7–36.8; O2SAT 97–100; BMI 18.6
--- NOTE | 2022-04-30 09:27 | ECG_ITS ---
APPROVED REPORT Exam: Resting ECG HR:69 bpm ECG Measurements Heart Rate 69 AXES VA 130 P 55 QRSd 90 QRS -30 QT 381 T 58 QTc 400 Conclusion SINUS RHYTHM BORDERLINE LEFT AXIS DEVIATION [QRS AXIS < -20] BORDERLINE ECG UNCONFIRMED REPORT Electronically signed by : Thomas Hernandez MD 05/01/2022 21:17:48
--- NOTE | 2022-04-30 09:29 | XR_ITS ---
FINAL REPORT CLINICAL HISTORY: SOB/CP COMPARISON: 12/31/2021 FINDINGS: A single view of the chest was obtained. The heart is normal in size. The mediastinum is unremarkable. The lungs are clear. There is no pleural effusion. There is no pneumothorax. There is no acute osseous abnormality. IMPRESSION: No acute cardiopulmonary process. Reviewed, Interpreted and Dictated by Dennis Lehman MD Transcribed by Nanda Manzanares Authenticated and [facility]
--- NOTE | 2022-04-30 09:29 | CT_ITS ---
FINAL REPORT TECHNIQUE: Noncontrast exam CLINICAL HISTORY: head injury passed out and fell COMPARISON: 11/21/2017 FINDINGS: No abnormal density is seen. Ventricles are normal. There is no hemorrhage. No mass effect is seen. There are mild chronic microvascular changes. Bone windows show no evidence of fracture. There is an air-fluid level in the left maxillary sinus compatible with chronic sinusitis. IMPRESSION: No acute findings. Chronic left maxillary sinusitis. Reviewed, Interpreted and Dictated by Dennis Lehman MD Transcribed by Nanda Manzanares Authenticated and [facility]
--- NOTE | 2022-04-30 09:30 | HMH.EDGENADL ---
Discharge Plan Disposition Patient Disposition: Home, Self-Care Condition: Good Chief Complaint: Syncope Prescriptions Prescriptions: No Action clonazepam 0.5 mg tablet 0.5 mg PO Q12H PRN (Reason: anxiety) Qty: 60 1RF Rx Instructions: Needs appt quetiapine [Seroquel] 50 mg tablet 50 mg PO DAILY Qty: 30 2RF atorvastatin 10 mg tablet See Rx Instructions .ROUTE .COMPLEX Qty: 90 1RF Dose Instruction: TAKE ONE TABLET BY MOUTH ONCE A DAY FOR CHOLESTEROL Rx Instructions: TAKE ONE TABLET BY MOUTH ONCE A DAY FOR CHOLESTEROL ondansetron 4 mg tablet,disintegrating 4 mg PO Q8H PRN (Reason: nausea and vomiting) Qty: 10 0RF cefdinir 300 mg capsule 300 mg PO BID 7 Days Qty: 14 0RF oseltamivir [Tamiflu] 75 mg capsule 75 mg PO BID 5 Days Qty: 10 0RF oseltamivir [Tamiflu] 75 mg capsule 75 mg PO Q12H 5 Days Qty: 10 0RF Referrals Follow up/Referrals: Macho Germain MD [Primary Care Provider] - See instructions Clinical Impressions Clinical Impression: Vasovagal syncope Instructions Patient Instructions: DI for Syncope in Adults (Fainting) Discharge ED Provider: Leonard Syed General Adult HPI General Chief complaint: Syncope Stated complaint: syncope Time Seen by Provider: 04/30/22 09:28 Mode of Arrival: EMS History of Present Illness HPI narrative: 61-year-old female past medical history of hypertension, COPD, depression who reports prior episodes of syncope. She is brought in by EMS, chief complaint is syncopal episode. She states that she had been feeling depressed and stressed she passed out and fell to the floor, is unaware if she struck her head or was knocked unconscious and was, reportedly was out briefly. She states this is happened previously and was triggered by stress. She denies any palpitations, lightheadedness preceding the episode, denies chest pain, shortness of breath. She does states she had had some upset stomach earlier and had taken Phenergan for that and is feeling a little bit sleepy. She does report depression feeling stressed however denies any suicidal or homicidal ideation, denies any hallucinations or delusions. She denies having taken any other medications this morning. Related Data Previous Rx's Medication Instructions Recorded atorvastatin 10 mg tablet See Rx Instructions .Route 01/09/22 .COMPLEX #90 tabs clonazepam 0.5 mg tablet 0.5 mg PO Q12H PRN anxiety #60 tabs 02/13/22 quetiapine 50 mg tablet (Seroquel) 50 mg PO DAILY #30 tabs 02/13/22 cefdinir 300 mg capsule 300 mg PO BID 7 days #14 caps 04/01/22 ondansetron 4 mg disintegrating 4 mg PO Q8H PRN nausea and 04/01/22 tablet vomiting #10 tabs oseltamivir 75 mg capsule (Tamiflu) 75 mg PO BID 5 days #10 caps 04/01/22 oseltamivir 75 mg capsule (Tamiflu) 75 mg PO Q12H 5 days #10 caps 04/13/22 Allergies Allergy/AdvReac Type Severity Reaction Status Date / Time amlodipine [From Norvasc] Allergy Severe Redness of Verified 02/13/22 16:02 Skin furosemide [From Lasix] Allergy Severe swelling, Verified 02/13/22 16:02 pain, rash codeine [CODEINE] Allergy Intermediate I-HIVES Verified 02/13/22 16:02 morphine [MORPHINE] Allergy Intermediate I-HIVES Verified 02/13/22 16:02 penicillin G [PENICILLIN G] Allergy Intermediate I-HIVES Verified 02/13/22 16:02 PFSH PFSH Disclaimer: The information contained in this section may have been updated after the patient was seen, as this information can be updated by other users. Medical History Anxiety COPD (chronic obstructive pulmonary disease) Diastolic dysfunction GERD (gastroesophageal reflux disease) History of left heart catheterization (LHC) Palpitations Surgical History History of section History of cholecystectomy History of colonoscopy Family History Ot
--- NOTE | 2022-04-30 09:35 | CT_ITS ---
FINAL REPORT TECHNIQUE: Thin section axial CT with sagittal reconstruction without contrast CLINICAL HISTORY: Neck pain status post fall FINDINGS: No fracture is seen. Alignment is normal. No obvious bony spinal canal stenosis is present. There are moderate degenerative disc changes at C5-6 and C6-7. IMPRESSION: No fracture or malalignment Reviewed, Interpreted and Dictated by Dennis Lehman MD Transcribed by Nanda Manzanares Authenticated and [facility]
[2022-04-30 09:47] LABS: Basophils # 0.2 K/mm3 (0-0.2); Basophils % 1.2 % (0.1-2.0); Eosinophils # 0.2 K/mm3 (0.0-0.4); Hematocrit 44.9 % (37.0-47.0); Hemoglobin 14.7 g/dL (12.2-16.2); Lymphocytes # 0.8 K/mm3 (0.7-4.5); Lymphocytes % 5.6 % (10-50); Mean Corpuscular HGB Conc 32.7 g/dL (31.8-35.4); Mean Corpuscular Hemoglobin 29.4 pg (27.0-31.2); Mean Platelet Volume 8.4 fl (7.4-10.4); Monocytes # 0.6 K/mm3 (0.1-1.0); Monocytes % 4.4 % (1.7-9.3); Neutrophils # 12.4 K/mm3 (1.8-7.8); Neutrophils % 87.8 % (37.0-80.0); Platelet Count 390 K/mm3 (142-424); Red Blood Count 4.98 M/mm3 (4.20-5.40); Red Cell Distribution Width 13.3 % (11.5-17.5); White Blood Count 14.1 K/mm3 (4.8-10.8)
[2022-04-30 09:49] LABS: Chloride 105 mmol/L (98-107); Potassium 3.8 mmoL/L (3.5-5.1); Sodium 142 mmol/L (136-145)
[2022-04-30 09:51] LABS: Blood Urea Nitrogen 15 mg/dl (7-17); Creatinine Clearance Estimated 65 mL/min (50-200); Estimated Glomerular Filt Rate 73 ml/min (>60); GFR (African American) 89 ML/MIN (>60)
[2022-04-30 09:52] LABS: Alanine Aminotransferase 15 U/L (12-78); Albumin Level 4.2 g/dl (3.5-5.0); Albumin/Globulin Ratio 1.2 (1.1-1.8); Alkaline Phosphatase 84 U/L (38-126); Anion Gap 10.8 mEq/L (5-15); Aspartate Amino Transferase 24 U/L (14-36); Bilirubin,Total 0.9 mg/dl (0.2-1.3); Calcium 9.4 mg/dl (8.4-10.2); Carbon Dioxide 30 mmol/L (22.0-30.0); Globulin 3.5 g/dL (1.3-3.2); Glucose 97 mg/dl (74-100); MANUAL DIFFERENTIAL MANUAL DIFFERENTIAL (MANUAL DIFF); Magnesium 1.9 mg/dl (1.6-2.3); Total Protein,Serum 7.7 g/dl (6.3-8.2)
--- NOTE | 2022-04-30 09:59 | PC.NURSE ---
PT TRANSPORTED TO RADIOLOGY VIA WHEELCHAIR.
--- NOTE | 2022-04-30 10:01 | PC.NURSE ---
pt gone to ct via w/c
[2022-04-30 10:02] LABS: Eosinophils % 2 % (0-3); Lymphocytes % 11 % (10-50); Monocytes % 1 % (2-9); Neutrophils % 86 % (42-76); Platelet Estimate Normal; RBC Morphology Normal; Total Cells Counted 100
[2022-04-30 10:04] LABS: Troponin I < 0.01 ng/ml (0.00-0.034)
--- NOTE | 2022-04-30 10:10 | PC.NURSE ---
PT RETURNED FROM RADIOLOGY.
--- NOTE | 2022-04-30 10:54 | PC.NURSE ---
pt ambulatory to restroom without complications. pt given another warm blanket and the tv remote to watch tv. No other needs at this time
--- NOTE | 2022-04-30 11:08 | PC.NURSE ---
IRIS PELAEZ at
--- NOTE | 2022-04-30 11:19 | PC.NURSE ---
pt given a lunch tray and is sitting up eating at this time
--- NOTE | 2022-04-30 11:24 | PC.NURSE ---
pt given meal tray , pt on phone crying
== END 2022-04-30 11:59 | disposition home or self-care (01) ==
PROVIDERS: Emergency Provider Emergency Medicine; PCP Emergency Medicine
DX: R55 Syncope and collapse (principal); J44.9 Chronic obstructive pulmonary disease, unspecified; I11.0 Hypertensive heart disease with heart failure; F32.A Depression, unspecified; F41.9 Anxiety disorder, unspecified; I50.9 Heart failure, unspecified; K21.9 Gastro-esophageal reflux disease without esophagitis; R00.2 Palpitations
CPT/HCPCS: 70450; 71045; 72125; 80053; 83735; 84484; 85007; 85025; 93005; 96360; 99285

== ENCOUNTER → 2022-08-31 13:40 | Outpatient (CLI) | payer OTHER, SELFPAY ==
[2022-08-31 13:23] LABS: Chol/HDL Ratio 2.5 (1-3.5); Cholesterol 126 mg/dl (140-200); HDL Cholesterol 50 mg/dl (40-60); Triglycerides 95 mg/dl (30-150); VLDL Cholesterol 19 mg/dL (0-40)
== END ==
PROVIDERS: PCP Nurse Practitioner Family; Visit Provider Nurse Practitioner Family
DX: R53.83 Other fatigue (principal)
CPT/HCPCS: 80061

== ENCOUNTER → 2022-09-23 23:24 | Outpatient (CLI) | payer OTHER, SELFPAY | PROVIDERS: PCP Nurse Practitioner Family; Visit Provider Nurse Practitioner Family | DX: N39.0 Urinary tract infection, site not specified (principal) | CPT/HCPCS: 87086 ==

== ENCOUNTER 2022-10-01 08:29 | Emergency (ER) | payer OTHER, SELFPAY ==
[2022-10-01 08:30] VITALS: BP 202/87; PULSE 67; RESP 16; TEMP 36.6; O2SAT 99; BMI 18.8
--- NOTE | 2022-10-01 08:50 | PC.NURSE ---
Gave report to ISAÍAS Pichardo and ISAÍAS Leong Notified MD also pt has hx of hypertension and advises she has not taken her b/p medicine this am
--- NOTE | 2022-10-01 08:51 | HMH.EDUROGF ---
Discharge Plan Disposition Patient Disposition: Home, Self-Care Condition: Good Prescriptions Prescriptions: No Action atorvastatin 10 mg tablet See Rx Instructions .ROUTE .COMPLEX Qty: 90 1RF Dose Instruction: TAKE ONE TABLET BY MOUTH ONCE A DAY FOR CHOLESTEROL Rx Instructions: TAKE ONE TABLET BY MOUTH ONCE A DAY FOR CHOLESTEROL quetiapine [Seroquel] 50 mg tablet 50 mg PO DAILY Qty: 30 2RF nitrofurantoin macrocrystal 100 mg capsule 100 mg PO BID 5 Days Qty: 10 0RF Rx Instructions: must administer with a meal/food clonazepam 0.5 mg tablet 0.5 mg PO Q12H PRN (Reason: anxiety) Qty: 60 2RF Vraylar 1.5 mg capsule See Rx Instructions .ROUTE .COMPLEX Qty: 30 0RF Dose Instruction: TAKE ONE CAPSULE BY MOUTH ONCE A DAY Rx Instructions: TAKE ONE CAPSULE BY MOUTH ONCE A DAY Referrals Follow up/Referrals: Macho Germain MD [Primary Care Provider] - See instructions Activity Restrictions/Add. Instructions Additional Instructions/Restrictions: I highly recommend that you follow-up with a clearing distribution clerk to work-up your vaginal bleeding. This could be a sign of cancer. You will need further testing. Your urine did not show an infection. You do have a small cystocele. A cystocele is when your bladder is pushing onto your vaginal wall. This may be the cause for your urinary discomfort. Please follow-up with your primary care doctor if you do not improve. However, it is important that you follow-up with your clearing distribution clerk even if your symptoms resolve on their own. Clinical Impressions Clinical Impression: Abnormal vaginal bleeding in postmenopausal patient Instructions Patient Instructions: DI for Vaginal Bleeding Discharge ED Provider: Katrin Noriega Female Urogenital HPI General Chief complaint: Vaginal Bleeding Stated complaint: vaginal bleeding Time Seen by Provider: 10/01/22 08:49 Mode of Arrival: Ambulatory Source of Information: Patient Limitations: No Limitations Description of Symptoms (Recalled from ER Triage Doc. by RN): Pt advises she has been having some light vaginal bleeding and brown discharge for the past week. Advises she has seen her PCP and was started on antibiotics, and has one dose left. Advises there is only blood when she wipes and it has no smell History of Present Illness HPI Narrative: The patient presents to the emergency department complaining of vaginal bleeding when she wipes. This has been going on for about 1 week. She has seen her primary care doctor who diagnosed her with a urinary tract infection and started her on an antibiotic which she takes once a day but does not remember the name of. She states that her symptoms did not improve. She also complains of some dysuria. She is sexually active. MD Complaint: dysuria Related Data Previous Rx's Medication Instructions Recorded atorvastatin 10 mg tablet See Rx Instructions .Route 08/31/22 .COMPLEX #90 tabs quetiapine 50 mg tablet (Seroquel) 50 mg PO DAILY #30 tabs 08/31/22 clonazepam 0.5 mg tablet 0.5 mg PO Q12H PRN anxiety #60 tabs 09/01/22 nitrofurantoin macrocrystal 100 mg 100 mg PO BID 5 days #10 caps 09/23/22 capsule cariprazine 1.5 mg capsule See Rx Instructions .Route 09/29/22 (Vraylar) .COMPLEX #30 caps Allergies Allergy/AdvReac Type Severity Reaction Status Date / Time amlodipine [From Norvasc] Allergy Severe Redness of Verified 10/01/22 08:53 Skin furosemide [From Lasix] Allergy Severe swelling, Verified 10/01/22 08:53 pain, rash codeine [CODEINE] Allergy Intermediate I-HIVES Verified 10/01/22 08:53 morphine [MORPHINE] Allergy Intermediate I-HIVES Verified 10/01/22 08:53 penicillin G [PENICILLIN G] Allergy Intermediate I-HIVES Verified 10/01/22 08:53 PFSH PFSH Disclaimer: The information contained in this section may have been updated after the patient was seen, as this information can be updated by other users. Medical History (Reviewed
[2022-10-01 09:01] LABS: Microscopic, Urine URINE MICROSCOPIC (MICROSCOPIC)
[2022-10-01 09:10] LABS: Appearance,Urine CLEAR (Clear); Bilirubin,Urine Negative (Negative); Blood, Urine 3+ (Negative); Color,Urine YELLOW (Yellow); Glucose,Urine (UA) Negative (Negative); Ketones,Urine TRACE (Negative); Leukocyte Esterase,Urine TRACE (Negative); Nitrate,Urine Negative (Negative); Protein,Urine Negative (Negative); Urobilinogen,Urine 0.2 EU/dl (0.2)
--- NOTE | 2022-10-01 10:16 | PC.NURSE ---
Rounded on patient call santiago within reach. Informed patient to undress from the waist down for exam.
--- NOTE | 2022-10-01 11:14 | PC.NURSE ---
PATIENT GIVEN ICE CHIPS AND LUNCH TRAY ORDERED FOR HER AND HER VISITOR
[2022-10-01 12:21] VITALS: BP 161/87; PULSE 78; RESP 18; TEMP 36.6; O2SAT 97
[2022-10-02 21:08] LABS: Neisseria gonorrhoeae, NAA Negative (Negative)
== END 2022-10-01 12:24 | disposition home or self-care (01) ==
PROVIDERS: Emergency Provider Emergency Medicine; PCP Emergency Medicine
DX: N93.9 Abnormal uterine and vaginal bleeding, unspecified (principal); R30.0 Dysuria; J44.9 Chronic obstructive pulmonary disease, unspecified; K21.9 Gastro-esophageal reflux disease without esophagitis; F41.9 Anxiety disorder, unspecified; N81.10 Cystocele, unspecified
CPT/HCPCS: 81001; 87210; 87491; 87591; 99283

== ENCOUNTER 2022-10-26 15:44 | Emergency (ER) | payer OTHER, SELFPAY ==
[2022-10-26 16:25] VITALS: BP 132/77; PULSE 81; RESP 21; TEMP 36.8; O2SAT 97
--- NOTE | 2022-10-26 16:48 | EXP.UTC ---
Discharge Plan Disposition Patient Disposition: Home, Self-Care Condition: Good Prescriptions Prescriptions: No Action atorvastatin 10 mg tablet See Rx Instructions .ROUTE .COMPLEX Qty: 90 1RF Dose Instruction: TAKE ONE TABLET BY MOUTH ONCE A DAY FOR CHOLESTEROL Rx Instructions: TAKE ONE TABLET BY MOUTH ONCE A DAY FOR CHOLESTEROL quetiapine [Seroquel] 50 mg tablet 50 mg PO DAILY Qty: 30 2RF nitrofurantoin monohyd/m-cryst [Macrobid] 100 mg capsule 100 mg PO BID 7 Days Qty: 14 0RF Rx Instructions: must administer with a meal/food clonazepam 0.5 mg tablet 0.5 mg PO Q12H PRN (Reason: anxiety) Qty: 60 2RF Vraylar 1.5 mg capsule See Rx Instructions .ROUTE .COMPLEX Qty: 30 0RF Dose Instruction: TAKE ONE CAPSULE BY MOUTH ONCE A DAY Rx Instructions: TAKE ONE CAPSULE BY MOUTH ONCE A DAY Referrals Follow up/Referrals: Macho Germain MD [Primary Care Provider] - See instructions Activity Restrictions/Add. Instructions Additional Instructions/Restrictions: *Monitor Temp, Over the counter Motrin or Tylenol as directed/as needed Tylenol every 4 hours and Motrin every 6 hours (as long as your family doctor has told you that you can take it) for fever or pain. and straight to ER if unable to lower temp less than 101.0 after medication given *Warm salt water gargles may help to soothe the throat *Throat Lozenges? *Warm fluids like tea with honey may help to soothe the throat? *Sleep elevated *Humidifier/Vaporizer Take medication as prescribed Follow up IMMEDIATELY for new or worsening symptoms or no Noticeable improvement over the next 48-72 hours. 911 for difficulty breathing or swallowing Clinical Impressions Clinical Impression: COPD (chronic obstructive pulmonary disease) Qualifiers: COPD type: unspecified COPD Qualified Code(s): J44.9 - Chronic obstructive pulmonary disease, unspecified Sinusitis Qualifiers: Sinusitis location: unspecified location Chronicity: unspecified Qualified Code(s): J32.9 - Chronic sinusitis, unspecified Instructions Patient Instructions: DI for Chronic Obstructive Pulmonary Disease, DI for Sinusitis, Azithromycin, COPD: When to Call for Help Discharge ED Provider: Kaylen BenderH UTC HPI General Stated complaint: soa Mode of Arrival: Ambulatory Source of Information: Patient Limitations: No Limitations Time Seen by Provider: 10/26/22 16:53 Description of Symptoms (Recalled from Triage Doc. by RN): PATIENT C/O DRY COUGH, CONGESTION, AND SOA SINCE YESTERDAY HEENT Symptoms (Recalled from RN notes): No Resp Symptoms (Recalled from RN notes): Yes Skin Symptoms (Recalled from RN notes): No MS Symptoms (Recalled from RN notes): No Functional Status (Recalled from RN notes): WNL History of Present Illness Provider Complaint: Patient states that she has been having sinus congestion, pressure and drainage for over a week States that yesterday she felt a little SOA after coughing States that today she was still feeling all congested and feeling SOA on and off States that she isnt coughing anything up but was worried if she didnt come in it would get worse so she came in Related Data Previous Rx's Medication Instructions Recorded atorvastatin 10 mg tablet See Rx Instructions .Route 08/31/22 .COMPLEX #90 tabs quetiapine 50 mg tablet (Seroquel) 50 mg PO DAILY #30 tabs 08/31/22 clonazepam 0.5 mg tablet 0.5 mg PO Q12H PRN anxiety #60 tabs 09/01/22 cariprazine 1.5 mg capsule See Rx Instructions .Route 09/29/22 (Vraylar) .COMPLEX #30 caps nitrofurantoin 100 mg PO BID 7 days #14 caps 10/14/22 monohydrate/macrocrystals 100 mg capsule (Macrobid) Allergies Allergy/AdvReac Type Severity Reaction Status Date / Time amlodipine [From Norvasc] Allergy Severe Redness of Verified 10/08/22 10:58 Skin furosemide [From Lasix] Allergy Severe swelling, Verified 10/08/22 10:58 pain, rash codeine [
[2022-10-26 17:26] VITALS: BP 132/77; PULSE 81; RESP 21; TEMP 36.8; O2SAT 97
== END 2022-10-26 17:40 | disposition home or self-care (01) ==
PROVIDERS: Emergency Provider Nurse Practitioner; PCP Emergency Medicine
DX: J20.9 Acute bronchitis, unspecified (principal); R06.02 Shortness of breath; J44.9 Chronic obstructive pulmonary disease, unspecified; K21.9 Gastro-esophageal reflux disease without esophagitis; F41.9 Anxiety disorder, unspecified; I51.89 Other ill-defined heart diseases
CPT/HCPCS: 96372; 99212; 99214; G0463

== ENCOUNTER 2023-01-10 08:27 | Emergency (ER) | payer OTHER, SELFPAY ==
[2023-01-10 08:40] VITALS: BP 129/69; PULSE 73; RESP 18; TEMP 36.6; O2SAT 98; BMI 19.3
--- NOTE | 2023-01-10 08:55 | EXP.UTC ---
Discharge Plan Disposition Patient Disposition: Home, Self-Care Condition: Good Prescriptions Prescriptions: No Action clonazepam 0.5 mg tablet 0.5 mg PO Q12H PRN (Reason: anxiety) Qty: 60 2RF amlodipine 5 mg tablet 5 mg PO DAILY mirtazapine 30 mg tablet 30 mg PO DAILY atorvastatin 10 mg tablet See Rx Instructions .ROUTE .COMPLEX Rx Instructions: TAKE ONE TABLET BY MOUTH ONCE A DAY FOR CHOLESTEROL nitrofurantoin monohyd/m-cryst [Macrobid] 100 mg capsule 100 mg PO BID Rx Instructions: must administer with a meal/food quetiapine [Seroquel] 50 mg tablet 50 mg PO DAILY Vraylar 1.5 mg capsule See Rx Instructions .ROUTE .COMPLEX Rx Instructions: TAKE ONE CAPSULE BY MOUTH ONCE A DAY Referrals Follow up/Referrals: Macho Germain MD [Primary Care Provider] - See instructions Activity Restrictions/Add. Instructions Additional Instructions/Restrictions: *Increase fluids. Water not Soda or Tea *Continue antibiotic *Be SURE to follow up anytime for new or worsening symptoms with your family doctor. AND in 48 hours for urine culture results with your family doctor, if you do not have a doctor then you may call back to the [facility] for urine culture results and further treatment. We do recommend that you choose and establish care with a Primary Care Physician. ?AND follow up with them ?in 10-14 days to repeat UA to ensure infection is resolved and blood no longer present *Be sure to let your PCP know that we sent urine cultures from the [facility] so they can follow up to ensure that you area the on the correct antibiotic Call your doctor office and make appointment for 48 hours (2 days from today) ?to follow up and get the results of your urine culture and further treatment Straight to the ER if any worsening of symptoms, confusion or life threatening symptoms Clinical Impressions Clinical Impression: Dysuria Instructions Patient Instructions: DI for Nausea -- Adult, DI for Dysuria -- Adult Discharge ED Provider: Kaylen Bender [facility] HPI General Stated complaint: nausea, vomiting, lower back pain Mode of Arrival: Ambulatory Source of Information: Patient Limitations: No Limitations Time Seen by Provider: 01/10/23 08:55 Description of Symptoms (Recalled from Triage Doc. by RN): Lower back and stomach pain, painful urination. She is on abx currently. HEENT Symptoms (Recalled from RN notes): No Resp Symptoms (Recalled from RN notes): No Skin Symptoms (Recalled from RN notes): No MS Symptoms (Recalled from RN notes): No Functional Status (Recalled from RN notes): n/a History of Present Illness Provider Complaint: Patient states that she has been having kidney pain and stomach pain/sick at her stomach Family States that she seen someone a few days ago and currently on Medication for UTI and family concerned the infection is worse patient complaining that she is hungry and wanting something to drink states that she thinks the medicine is upsetting her stomach Related Data Home Medications Medication Instructions Recorded Confirmed amlodipine 5 mg tablet 5 mg PO DAILY . 01/10/23 01/10/23 atorvastatin 10 mg tablet See Rx Instructions .Route 01/10/23 01/10/23 .COMPLEX . cariprazine 1.5 mg capsule See Rx Instructions .Route 01/10/23 01/10/23 (Vraylar) .COMPLEX . mirtazapine 30 mg tablet 30 mg PO DAILY . 01/10/23 01/10/23 nitrofurantoin 100 mg PO BID abx 01/10/23 01/10/23 monohydrate/macrocrystals 100 mg capsule (Macrobid) quetiapine 50 mg tablet (Seroquel) 50 mg PO DAILY . 01/10/23 01/10/23 Previous Rx's Medication Instructions Recorded clonazepam 0.5 mg tablet 0.5 mg PO Q12H PRN anxiety #60 tabs 09/01/22 Allergies Allergy/AdvReac Type Severity Reaction Status Date / Time amlodipine [From Norvasc] Allergy Severe Redness of Verified 01/10/23 08:57 Skin furosemide [From Lasix] Allergy Severe swelling, Verified 01/10/23 08:57 alyson
[2023-01-10 09:03] LABS: Microscopic, Urine URINE MICROSCOPIC (MICROSCOPIC)
[2023-01-10 09:15] LABS: Appearance,Urine CLEAR (Clear); Bilirubin,Urine Negative (Negative); Blood, Urine 2+ (Negative); Color,Urine YELLOW (Yellow); Glucose,Urine (UA) Negative (Negative); Ketones,Urine Negative (Negative); Leukocyte Esterase,Urine TRACE (Negative); Nitrate,Urine Negative (Negative); Protein,Urine TRACE (Negative); Urobilinogen,Urine 0.2 EU/dl (0.2)
[2023-01-10 09:45] VITALS: BP 129/69; PULSE 73; RESP 18; TEMP 36.6; O2SAT 98
[2023-01-10 09:56] LABS: Squamous Epithelial Cell,Urine Occasional #/hpf (0-5); WBC,Urine Occasional #/hpf (0-3)
[2023-01-10 09:57] LABS: Bacteria,Urine Trace /lpf
== END 2023-01-10 09:45 | disposition home or self-care (01) ==
PROVIDERS: Emergency Provider Nurse Practitioner; PCP Emergency Medicine
DX: R10.9 Unspecified abdominal pain (principal); M54.59 Other low back pain; R11.2 Nausea with vomiting, unspecified; R30.0 Dysuria; J44.9 Chronic obstructive pulmonary disease, unspecified; K21.9 Gastro-esophageal reflux disease without esophagitis; I51.89 Other ill-defined heart diseases; F41.9 Anxiety disorder, unspecified
CPT/HCPCS: 81001; 99212; 99213; G0463

== ENCOUNTER 2023-03-16 09:37 | Emergency (ER) | payer OTHER, SELFPAY ==
[2023-03-16 10:10] VITALS: BP 190/101; PULSE 77; RESP 18; TEMP 36.7; O2SAT 98; BMI 23.7
--- NOTE | 2023-03-16 10:17 | EXP.UTC ---
Discharge Plan Disposition Patient Disposition: Home, Self-Care Condition: Good Prescriptions Prescriptions: No Action clonazepam 0.5 mg tablet 0.5 mg PO Q12H PRN (Reason: anxiety) Qty: 60 2RF Clenpiq 10 mg-3.5 gram- 12 gram/160 mL solution 160 ml PO DAILY Qty: 350 0RF Rx Instructions: take first dose at 5-9PM evening before colonoscopy; 2nd dose the next day approximately 5 hrs before colonoscopy amlodipine 5 mg tablet 5 mg PO DAILY mirtazapine 30 mg tablet 30 mg PO DAILY atorvastatin 10 mg tablet See Rx Instructions .ROUTE .COMPLEX Rx Instructions: TAKE ONE TABLET BY MOUTH ONCE A DAY FOR CHOLESTEROL nitrofurantoin monohyd/m-cryst [Macrobid] 100 mg capsule 100 mg PO BID Rx Instructions: must administer with a meal/food quetiapine [Seroquel] 50 mg tablet 50 mg PO DAILY Vraylar 1.5 mg capsule See Rx Instructions .ROUTE .COMPLEX Rx Instructions: TAKE ONE CAPSULE BY MOUTH ONCE A DAY Referrals Follow up/Referrals: Thomas Hernandez MD [Primary Care Provider] - See instructions Activity Restrictions/Add. Instructions Additional Instructions/Restrictions: Make sure that you are drinking plenty of fluids to help flush the kidneys Follow up with OBGYN for furhter evaluation of spotting Make sure to take your blood pressure medication as it is prescribed Straight to ER if any life threatening symptoms Follow up with your Family Doctor if no improvement or any worsening of symptom Clinical Impressions Clinical Impression: Dysuria Instructions Patient Instructions: DI for Dysuria -- Adult Discharge ED Provider: Kaylen Bender [facility] General Stated complaint: POSSIBLE UTI, SPOTTING FOR 7 DAYS, KIDNEYS BURNIN Mode of Arrival: Ambulatory Source of Information: Patient Limitations: No Limitations Time Seen by Provider: 03/16/23 10:18 Description of Symptoms (Recalled from Triage Doc. by RN): PATIENT C/O LOWER BACK PAIN, BURNING WITH URINATION AND FATIGUE X 3 DAYS HEENT Symptoms (Recalled from RN notes): No Resp Symptoms (Recalled from RN notes): No Skin Symptoms (Recalled from RN notes): No MS Symptoms (Recalled from RN notes): No Functional Status (Recalled from RN notes): WNL History of Present Illness Provider Complaint: Patient states that she has been having achy like feeling on and off in her lower back and having some burning with urination worried that she may have UTI wanting to get her urine checked States that she has been having spotting on and off but she is seeing OBGYN for that Related Data Home Medications Medication Instructions Recorded Confirmed amlodipine 5 mg tablet 5 mg PO DAILY . 01/10/23 01/10/23 atorvastatin 10 mg tablet See Rx Instructions .Route 01/10/23 01/10/23 .COMPLEX . cariprazine 1.5 mg capsule See Rx Instructions .Route 01/10/23 01/10/23 (Vraylar) .COMPLEX . mirtazapine 30 mg tablet 30 mg PO DAILY . 01/10/23 01/10/23 nitrofurantoin 100 mg PO BID abx 01/10/23 01/10/23 monohydrate/macrocrystals 100 mg capsule (Macrobid) quetiapine 50 mg tablet (Seroquel) 50 mg PO DAILY . 01/10/23 01/10/23 Previous Rx's Medication Instructions Recorded clonazepam 0.5 mg tablet 0.5 mg PO Q12H PRN anxiety #60 tabs 09/01/22 sod picosulf 10 mg-magnes 3.5 160 ml PO DAILY 2 doses #350 mL 02/22/23 gram-citric 12 gram/160 mL oral solution (Clenpiq) Allergies Allergy/AdvReac Type Severity Reaction Status Date / Time amlodipine [From Norvasc] Allergy Severe Redness of Verified 01/10/23 08:57 Skin furosemide [From Lasix] Allergy Severe swelling, Verified 01/10/23 08:57 pain, rash codeine [CODEINE] Allergy Intermediate I-HIVES Verified 01/10/23 08:57 morphine [MORPHINE] Allergy Intermediate I-HIVES Verified 01/10/23 08:57 penicillin G [PENICILLIN G] Allergy Intermediate I-HIVES Verified 01/10/23 08:57 Worker's Comp Is this a Worker's Comp case?: No [facility] Disclaimer: The information co
[2023-03-16 10:18] LABS: Bilirubin,Urine Negative (Negative); Blood, Urine 3+ (Negative); Color,Urine Yellow (Yellow); Glucose,Urine (UA) Negative (Negative); Ketones,Urine Negative (Negative); PH,Urine 5.5 (5.0-8.5); Protein,Urine Negative (Negative); Specific Gravity, Urine 1.025 (1.005-1.030); UTC Leukocyte Esterase,Urine Negative (Negative); UTC Nitrate,Urine Negative (Negative); Urobilinogen,Urine 0.2 EU/dl (0.2)
[2023-03-16 10:19] LABS: Apearance,Urine Cloudy (Clear)
[2023-03-16 10:42] VITALS: BP 190/101; PULSE 77; RESP 18; TEMP 36.7; O2SAT 98
== END 2023-03-16 10:43 | disposition home or self-care (01) ==
PROVIDERS: Emergency Provider Nurse Practitioner; PCP Internal Medicine Adolescent Medicine
DX: R30.0 Dysuria (principal); B96.89 Other specified bacterial agents as the cause of diseases classified elsewhere; M54.59 Other low back pain; R53.83 Other fatigue; J44.9 Chronic obstructive pulmonary disease, unspecified; K21.9 Gastro-esophageal reflux disease without esophagitis; I10 Essential (primary) hypertension
CPT/HCPCS: 81003; 87086; 99212; 99213; G0463

== ENCOUNTER 2023-09-17 08:02 | Emergency (ER) | payer OTHER, SELFPAY ==
[2023-09-17 08:10] VITALS: BP 186/86; PULSE 66; RESP 18; TEMP 36.5; O2SAT 99; BMI 23.5
--- NOTE | 2023-09-17 08:22 | ED_ITS ---
Discharge Plan Disposition Patient Disposition: Home, Self-Care Condition: Good Prescriptions Prescriptions: No Action clonazepam 0.5 mg tablet 0.5 mg PO Q12H PRN (Reason: anxiety) Qty: 60 2RF Clenpiq 10 mg-3.5 gram- 12 gram/160 mL solution 160 ml PO DAILY Qty: 350 0RF Rx Instructions: take first dose at 5-9PM evening before colonoscopy; 2nd dose the next day approximately 5 hrs before colonoscopy amlodipine 5 mg tablet 5 mg PO DAILY mirtazapine 30 mg tablet 30 mg PO DAILY atorvastatin 10 mg tablet See Rx Instructions .ROUTE .COMPLEX Rx Instructions: TAKE ONE TABLET BY MOUTH ONCE A DAY FOR CHOLESTEROL nitrofurantoin monohyd/m-cryst [Macrobid] 100 mg capsule 100 mg PO BID Rx Instructions: must administer with a meal/food quetiapine [Seroquel] 50 mg tablet 50 mg PO DAILY Vraylar 1.5 mg capsule See Rx Instructions .ROUTE .COMPLEX Rx Instructions: TAKE ONE CAPSULE BY MOUTH ONCE A DAY Referrals Follow up/Referrals: Provider,Referral, MD [Primary Care Provider] - See instructions Activity Restrictions/Add. Instructions Additional Instructions/Restrictions: *Monitor Temp, Over the counter Motrin or Tylenol as directed/as needed Tylenol every 4 hours and Motrin every 6 hours (as long as your family doctor has told you that you can take it) for fever or pain. and straight to ER if unable to lower temp less than 101.0 after medication given *Warm salt water gargles may help to soothe the throat *Throat Lozenges? *Warm fluids like tea with honey may help to soothe the throat? *Sleep elevated *Humidifier/Vaporizer Follow up IMMEDIATELY for new or worsening symptoms or no Noticeable improvement over the next 48-72 hours. 911 for difficulty breathing or swallowing Clinical Impressions Clinical Impression: Otitis media Instructions Patient Instructions: Middle Ear Infection, Cefdinir Discharge ED Provider: Kaylen Bender [facility] [place] HPI General Stated complaint: B/L Ear pain and Headache Mode of Arrival: Ambulatory Source of Information: Patient Limitations: No Limitations Time Seen by Provider: 09/17/23 08:22 Description of Symptoms (Recalled from Triage Doc. by RN): PATIENT C/O BILATERAL EAR PAIN, COUGH AND NAUSEA X 2 DAYS HEENT Symptoms (Recalled from RN notes): Yes Resp Symptoms (Recalled from RN notes): Yes Skin Symptoms (Recalled from RN notes): No MS Symptoms (Recalled from RN notes): No Functional Status (Recalled from RN notes): WNL History of Present Illness Provider Complaint: Patient states that she has been having bilateral ear pain and pressure, headache and feeling bad and achy States that today her ears was still bothering her so she came in to get it checked Related Data Home Medications Medication Instructions Recorded Confirmed amlodipine 5 mg tablet 5 mg PO DAILY . 01/10/23 01/10/23 atorvastatin 10 mg tablet See Rx Instructions .Route 01/10/23 01/10/23 .COMPLEX . cariprazine 1.5 mg capsule See Rx Instructions .Route 01/10/23 01/10/23 (Vraylar) .COMPLEX . mirtazapine 30 mg tablet 30 mg PO DAILY . 01/10/23 01/10/23 nitrofurantoin 100 mg PO BID abx 01/10/23 01/10/23 monohydrate/macrocrystals 100 mg capsule (Macrobid) quetiapine 50 mg tablet (Seroquel) 50 mg PO DAILY . 01/10/23 01/10/23 Previous Rx's Medication Instructions Recorded clonazepam 0.5 mg tablet 0.5 mg PO Q12H PRN anxiety #60 tabs 09/01/22 sod picosulf 10 mg-magnes 3.5 160 ml PO DAILY 2 doses #350 mL 02/22/23 gram-citric 12 gram/160 mL oral solution (Clenpiq) Allergies Allergy/AdvReac Type Severity Reaction Status Date / Time amlodipine [From Norvasc] Allergy Severe Redness of Verified 01/10/23 08:57 Skin furosemide [From Lasix] Allergy Severe swelling, Verified 01/10/23 08:57 pain, rash codeine [CODEINE] Allergy Intermediate I-HIVES Verified 01/10/23 08:57 morphine [MORPHINE] Allergy Intermediate I-HIVES Verified 01/10/23 08:57 penicillin G [PENICILLIN G] Allergy Intermediate I-HIVES Verified 01/10/23 08:57 Worker's Comp Is this a Worker's Comp case?: No PFS PFS Disclaimer: The information contained in this section may have been updated after the patient was seen, as this information can be updated by other users. Medical History Anxiety COPD (chronic obstructive pulmonary disease) Diastolic dysfunction GERD (gastroesophageal reflux disease) History of left heart catheterization (LHC) Palpitations Postmenopausal bleeding Uterine prolapse stage 2 Surgical History History of section History of cholecystectomy History of colonoscopy Family History Other No significant family history Social History Smoking Status: Never smoker second hand exposure: Yes alcohol intake: never substance use type: denies use current occupational status: employed and other Travel in the last 8 weeks: None household members: spouse housing: house ROS Obtained: Yes All systems reviewed & no additional complaints except as documented and Yes Systems reviewed as appropriate & no additional complaints except as documented Constitutional Constitutional: Reports system reviewed and no additional complaints, except as documented, Reports as per HPI, Reports body ache and Reports headache(s) ENT Ears, Nose, Mouth, and Throat: Reports system reviewed and no additional complaints, except as documented, Reports as per HPI, Reports otalgia, Reports headache(s) and Reports sinus pressure Cardiovascular Cardiovascular: Reports system reviewed and no additional complaints, except as documented and Reports as per HPI Respiratory Respiratory: Reports system reviewed and no additional complaints, except as documented, Reports as per HPI and Reports cough Gastrointestinal Gastrointestingal: Reports system reviewed and no additional complaints, except as documented and as per HPI Neurologic Neurologic: Reports headache(s) Physical Exam General General appearance: alert and in no apparent distress ENT ENT exam: Present mucous membranes moist Expanded ENT Exam TM/Canal exam: Left TM: erythema and Bilateral TM: bulging Nose exam: Present sinus tenderness Respiratory Respiratory exam: Present normal lung sounds bilaterally; Absent respiratory distress or wheezes Cardiovascular Cardiovascular exam: Present regular rate, normal rhythm and normal heart sounds Neurological Exam Neurological exam: Present alert, oriented X3 and normal gait Medical Decision Making Remi Inquiry Pt receiving controlled substance: No Remi was queried for this patient: No Vital Signs: 09/17/23 08:10 Temperature 97.7 F Temperature Source Oral Pulse Rate [Left Brachial] 66 Respiratory Rate 18 Blood Pressure [Left Arm] 186/86 H Blood Pressure Mean [Left Arm] 119 Blood Pressure Source [Left Arm] Automatic Cuff Blood Pressure Position [Left Arm] Sitting 02 Sat by Pulse Oximetry 99 Oxygen Delivery Method Room Air Medical Decision Narrative: Patient states that she is allergic to PCN but has taken Cefdnir in the past without complications or reactions
[2023-09-17 08:38] VITALS: BP 186/86; PULSE 66; RESP 18; TEMP 36.5; O2SAT 99
== END 2023-09-17 08:41 | disposition home or self-care (01) ==
PROVIDERS: Emergency Provider Nurse Practitioner
DX: H66.93 Otitis media, unspecified, bilateral (principal); R51.9 Headache, unspecified
CPT/HCPCS: 99212; 99214; G0463

== ENCOUNTER 2024-01-02 05:36 | Emergency (ER) | payer OTHER, SELFPAY ==
[2024-01-02 05:37] VITALS: BP 199/84; PULSE 72; RESP 16; TEMP 36.5; O2SAT 97; BMI 21.1
--- NOTE | 2024-01-02 05:48 | XR_ITS ---
PROCEDURE INFORMATION: Exam: XR Chest Exam date and time: 01/02/2024 6:00 AM Age: 63 years old Clinical indication: Cough TECHNIQUE: Imaging protocol: Radiologic exam of the chest. Views: 1 view. COMPARISON: CR XR CHEST PORTABLE 04/30/2022 9:51 AM FINDINGS: Lungs: Unremarkable. No consolidation. Pleural spaces: Unremarkable. No pleural effusion. No pneumothorax. Heart/Mediastinum: Unremarkable. No cardiomegaly. Bones/joints: Unremarkable. IMPRESSION: No acute findings.
--- NOTE | 2024-01-02 05:48 | CT_ITS ---
PROCEDURE INFORMATION: Exam: CT Head Without Contrast Exam date and time: 01/02/2024 5:59 AM Age: 63 years old Clinical indication: Pain; Other: HTN; Headache; Additional info: PEARCE, HTN TECHNIQUE: Imaging protocol: Computed tomography of the head without contrast. Radiation optimization: All CT scans at this facility use at least one of these dose optimization techniques: automated exposure control; mA and/or kV adjustment per patient size (includes targeted exams where dose is matched to clinical indication); or iterative reconstruction. COMPARISON: CT HEAD/BRAIN WO CON 04/30/2022 10:04 AM FINDINGS: Brain: Periventricular white matter hypoattenuation unchanged from prior comparisons. Pineal gland calcifications. Scattered dural calcifications. Intracranial calcified atherosclerotic disease. Cerebral ventricles: Choroid plexus calcifications. Paranasal sinuses: Visualized sinuses are unremarkable. No fluid levels. Mastoid air cells: Visualized mastoid air cells are well aerated. Bones: Unremarkable. No acute fracture. Soft tissues: Unremarkable. IMPRESSION: 1. No acute intracranial findings. 2. Stable periventricular white matter changes.
--- NOTE | 2024-01-02 05:48 | ECG_ITS ---
APPROVED REPORT Exam: Resting ECG HR:64 bpm ECG Measurements Heart Rate 64 AXES DE 140 P 53 QRSd 85 QRS -15 QT 422 T 36 QTc 432 Conclusion Sinus rhythm Electronically signed by : JOS SCHAFFER, 01/02/2024 20:09:32
--- NOTE | 2024-01-02 05:52 | HMH.EDGENADL ---
Discharge Plan Disposition Patient Disposition: Home, Self-Care Condition: Good Prescriptions Prescriptions: No Action clonazepam 0.5 mg tablet 0.5 mg PO Q12H PRN (Reason: anxiety) Qty: 60 2RF Clenpiq 10 mg-3.5 gram- 12 gram/160 mL solution 160 ml PO DAILY Qty: 350 0RF Rx Instructions: take first dose at 5-9PM evening before colonoscopy; 2nd dose the next day approximately 5 hrs before colonoscopy amlodipine 5 mg tablet 5 mg PO DAILY mirtazapine 30 mg tablet 30 mg PO DAILY atorvastatin 10 mg tablet See Rx Instructions .ROUTE .COMPLEX Rx Instructions: TAKE ONE TABLET BY MOUTH ONCE A DAY FOR CHOLESTEROL nitrofurantoin monohyd/m-cryst [Macrobid] 100 mg capsule 100 mg PO BID Rx Instructions: must administer with a meal/food quetiapine [Seroquel] 50 mg tablet 50 mg PO DAILY Vraylar 1.5 mg capsule See Rx Instructions .ROUTE .COMPLEX Rx Instructions: TAKE ONE CAPSULE BY MOUTH ONCE A DAY cefdinir 300 mg capsule 300 mg PO BID 10 Days Qty: 20 0RF Referrals Follow up/Referrals: Sara Galvan APRN [Primary Care Provider] - See instructions Activity Restrictions/Add. Instructions Additional Instructions/Restrictions: You were evaluated in the ER and are appropriate for discharge at this time. You have COVID, wash your hands and try to avoid spreading the virus to other people. Take Tylenol, ibuprofen if needed for body aches, headache. Drink plenty of water. Your blood pressure was quite high in the ER which may have contributed to your symptoms. Increase your home amlodipine to 10 mg daily (2 pills) until you follow-up with your primary care doctor. Call your primary care doctor for an appointment to be seen in the next 2 days to recheck your blood pressure and talk about blood pressure medications. Return to the ER with new, worsening, or otherwise concerning symptoms. Clinical Impressions Clinical Impression: COVID, Hypertension Print Language Print Language: Korean Discharge ED Provider: Masood Mauricio Adult HPI General Chief complaint: Ear Stated complaint: ear pain, cough, runny nose, nausea Time Seen by Provider: 01/02/24 05:43 Mode of Arrival: Ambulatory Source of Information: Patient Limitations: No Limitations Description of Symptoms (Recalled from ER Triage Doc. by RN): Pt presents with headache, nausea, bilateral ear pain, and cough x 4 days. History of Present Illness HPI narrative: 63-year-old female with history of hyperlipidemia, hypertension presents to the ER for complaints of headache, nausea, bilateral ear pain, cough for the last 4 days. Patient reports she has had mild headache controlled with ibuprofen as well as the other associated symptoms for the last few days. She denies fever. She is not having chest pain, difficulty breathing, or vomiting. Patient reports she has not yet taken her blood pressure medication this morning but does take a daily amlodipine. She reports no numbness, tingling, weakness, vision changes, sore throat, abdominal pain, dysuria, or other associated symptoms at this time. Related Data Home Medications ?Medication ?Instructions ?Recorded ?Confirmed amlodipine 5 mg tablet 5 mg PO DAILY . 01/10/23 01/10/23 atorvastatin 10 mg tablet See Rx Instructions .Route 01/10/23 01/10/23 .COMPLEX . cariprazine 1.5 mg capsule See Rx Instructions .Route 01/10/23 01/10/23 (Vraylar) .COMPLEX . mirtazapine 30 mg tablet 30 mg PO DAILY . 01/10/23 01/10/23 nitrofurantoin 100 mg PO BID abx 01/10/23 01/10/23 monohydrate/macrocrystals 100 mg capsule (Macrobid) quetiapine 50 mg tablet (Seroquel) 50 mg PO DAILY . 01/10/23 01/10/23 Previous Rx's ?Medication ?Instructions ?Recorded clonazepam 0.5 mg tablet 0.5 mg PO Q12H PRN anxiety #60 tabs 09/01/22 sod picosulf 10 mg-magnes 3.5 160 ml PO DAILY 2 doses #350 mL 02/22/23 gram-citric 12 gram/160 mL oral solution (Clenpiq) cefdinir 300 mg capsule 300 mg PO BID 10 days #20 caps 09/17/23 Allergies Allergy/AdvReac Type Severity Reaction Status Date / Time amlodipine [From Norvasc] Allergy Severe Redness of Verified 01/10/23 08:57 Skin furosemide [From Lasix] Allergy Severe swelling, Verified 01/10/23 08:57 pain, rash codeine [CODEINE] Allergy Intermediate I-HIVES Verified 01/10/23 08:57 morphine [MORPHINE] Allergy Intermediate I-HIVES Verified 01/10/23 08:57 penicillin G [PENICILLIN G] Allergy Intermediate I-HIVES Verified 01/10/23 08:57 [facility] Disclaimer: The information contained in this section may have been updated after the patient was seen, as this information can be updated by other users. Medical History Anxiety COPD (chronic obstructive pulmonary disease) Diastolic dysfunction GERD (gastroesophageal reflux disease) History of left heart catheterization (LHC) Palpitations Postmenopausal bleeding Uterine prolapse stage 2 Surgical History History of section History of cholecystectomy History of colonoscopy Family History Other No significant family history Social History Smoking Status: Unknown if ever smoked second hand exposure: Yes alcohol intake: never substance use type: denies use current occupational status: employed and other Travel in the last 8 weeks: None household members: spouse housing: house ROS Obtained: Yes All systems reviewed & no additional complaints except as documented Positive ROS per HPI Physical Exam General General appearance: alert and in no apparent distress Head Head exam: atraumatic and normocephalic Eye Eye exam: Present PERRL and EOMI ENT ENT exam: Present mucous membranes moist; Absent TM's normal bilaterally (Bilateral tympanic membranes with small clear fluid, no purulence, no erythema of TM) Neck Neck exam: Present normal inspection and full ROM; Absent lymphadenopathy Chest Chest inspection: Present symmetric chest wall rise Respiratory Respiratory exam: Present normal lung sounds bilaterally; Absent respiratory distress, wheezes or stridor Cardiovascular Cardiovascular exam: Present regular rate and normal rhythm Abdominal Exam Abdominal exam: Present soft; Absent distention or tenderness Extremities Exam Extremities exam: Present full ROM; Absent edema Neurological Exam Neurological exam: Present alert, oriented X3, CN II-XII intact and normal gait; Absent motor sensory deficit Psychiatric Psychiatric exam: Present normal affect and normal mood Skin Skin exam: Present warm and dry Medical Decision Making Medical Records Medical records reviewed: Yes I reviewed the patient's medical records. MR Comment: Patient has been seen in urgent care previously for concerns of ear pain, patient prescribed cefdinir at that time per the note from August 2023 Remi Inquiry Pt receiving controlled substance: No Vital Signs: 01/02/24 05:37 01/02/24 05:58 01/02/24 06:30 Temperature 97.7 F Temperature Source Oral Pulse Rate 60 Pulse Rate [Left] 72 Respiratory Rate 16 Blood Pressure 199/84 H 198/91 H Blood Pressure [Right Arm] 199/84 H Blood Pressure Mean Blood Pressure Mean [Right Arm] 122 Blood Pressure Source [Right Arm] Automatic Cuff Blood Pressure Position [Right Arm] Sitting 02 Sat by Pulse Oximetry 97 97 Oxygen Delivery Method Room Air 01/02/24 06:39 01/02/24 06:39 Temperature Temperature Source Pulse Rate 69 Pulse Rate [Left] Respiratory Rate Blood Pressure 170/81 H Blood Pressure [Right Arm] Blood Pressure Mean 110 Blood Pressure Mean [Right Arm] Blood Pressure Source [Right Arm] Blood Pressure Position [Right Arm] 02 Sat by Pulse Oximetry 98 Oxygen Delivery Method Lab Data Lab Results 01/02/24 05:46: SARS-CoV-2 (PCR) Detected A, Influenza A Untype (PCR) Not detected, Influenza Type B (PCR) Not detected 01/02/24 05:59: WBC 9.4, RBC 4.73, Hgb 14.1, Hct 43.8, MCV 92.6, MCH 29.7, MCHC 32.1, RDW 14.0, Plt Count 329, MPV 7.9, Neut % (Auto) 78.1, Lymph % (Auto) 12.8, [place] % (Auto) 5.1, Eos % (Auto) 2.8, Baso % (Auto) 1.1, Neut # (Auto) 7.4, Lymph # (Auto) 1.2, [place] # (Auto) 0.5, Eos # (Auto) 0.3, Baso # (Auto) 0.1, Sodium 141, Potassium 4.0, Chloride 111 H, Carbon Dioxide 28, Anion Gap 6.0, BUN 12, Creatinine 0.80, Estimated Creat Clear 57, Estimated GFR 73, Est GFR ( Amer) 88, Glucose 91, Calcium 9.3, Total Bilirubin 0.7, AST 42 H, ALT 27, Alkaline Phosphatase 106, Troponin I < 0.01, Total Protein 7.4, Albumin 3.8, Globulin 3.6 H, Albumin/Globulin Ratio 1.1 01/02/24 05:59 01/02/24 05:59 Orders (Tests/Meds): ED MEDICATIONS Generic Name Dose Route Start Last Admin Trade Name Nani PRN Reason Stop Dose Admin Hydralazine HCl 10 mg 01/02/24 06:29 01/02/24 06:31 Hydralazine 20mg/Ml Vial IV 01/02/24 06:30 10 mg ONCE ONE Administration Discontinued Medications Generic Name Dose Route Start Last Admin Trade Name Nani PRN Reason Stop Dose Admin Acetaminophen 1,000 mg 01/02/24 06:01 01/02/24 06:04 Acetaminophen 500mg Tab PO 01/02/24 06:02 1,000 mg ONCE ONE Administration Amlodipine Besylate 5 mg 01/02/24 09:00 Amlodipine 10mg Tablet PO 02/01/24 08:59 DAILY ADAM Amlodipine Besylate 5 mg 01/02/24 05:59 01/02/24 06:00 Amlodipine 10mg Tablet PO 01/02/24 06:00 5 mg DAILY ONE Administration Amlodipine Besylate 5 mg 01/02/24 06:15 01/02/24 06:06 Amlodipine 5mg Tablet PO 01/02/24 06:16 Not Given ONCE ONE Ibuprofen 600 mg 01/02/24 06:01 01/02/24 06:05 Ibuprofen 600 Mg Tablet PO 01/02/24 06:02 600 mg ONCE ONE Administration Labetalol HCl 5 mg 01/02/24 05:50 01/02/24 05:58 Labetalol 20mg/4ml Syringe IV 01/02/24 05:51 5 mg ONCE ONE Administration Labetalol HCl 5 mg 01/02/24 06:21 01/02/24 06:40 Labetalol 20mg/4ml Syringe IV 01/02/24 06:22 Not Given ONCE ONE ORDERS Category Date Time Status CT head/brain wo con Stat Cat Scan 01/02/24 05:48 Completed CXR --portable [XR chest portable] Stat Exams 01/02/24 05:48 Completed CBC w/Auto Diff [Complete Blood Count Auto Diff] Stat Lab 01/02/24 05:59 Completed CMP [Comprehensive Metabolic Panel] Stat Lab 01/02/24 05:59 Completed Rapid PCR Covid and Flu A/B Stat Lab 01/02/24 05:46 Completed Trop I [Troponin I] Stat Lab 01/02/24 05:59 Completed Troponin I Q3H Lab 01/02/24 09:00 Ordered Troponin I Q3H Lab 01/02/24 12:00 Ordered ECG Request Stat Y 01/02/24 05:48 Ordered Medical Decision Narrative: In summary, this 63-year-old female presents to the emergency department today with concerns of headache, congestion, ear pain, nausea for the last few days. On initial evaluation patient is hemodynamically stable though she is hypertensive, afebrile, resting comfortably, GCS 15, no focal neurologic deficits, oropharynx clear without lymphadenopathy, bilateral tympanic membranes do not show findings of otitis media though this was considered on my differential, cardiopulmonary exam reassuring. Differential diagnosis includes but is not limited to viral syndrome, I also considered the possibility of patient having symptomatic hypertension with her headaches since she has been hypertensive with systolic near 200 in the ER, I considered intracranial bleed, mass, mass effect, electrolyte abnormality, and kidney dysfunction, cardiac strain, pneumonia. Based on these concerns, I ordered viral swab, basic serum labs, CT head, ECG, chest x-ray. ECG personally interpreted demonstrates normal sinus rhythm, rate 64, normal axis, normal NC and QTc, no STEMI. Patient received home dose of amlodipine for treatment however this typically is slow in onset so labetalol was also administered for control of hypertension. Patient is also receiving Tylenol, ibuprofen. Labs personally reviewed demonstrate normal CBC, CMP nonactionable, no findings of kidney dysfunction, undetectably low troponin which is reassuring in the setting of low heart score and no chest pain with reassuring ECG, COVID-positive. Chest x-ray personally interpreted does not demonstrate acute intrathoracic abnormality, see radiology read for final interpretation. CT head personally interpreted does not demonstrate acute intracranial abnormality. See radiology read for final interpretation. Patient received IV labetalol without significant improvement of her blood pressure, though her heart rate did slow. Due to her decreased heart rate, she cannot have additional beta-cheri at this time. She does report her headache is already better, likely from the Tylenol, ibuprofen since her blood pressure is unchanged. Hydralazine was administered. On reassessment patient's blood pressure has improved after the hydralazine. She states she continues to feel better. I believe at this time she is appropriate for discharge. I discussed Paxlovid with the patient which she was interested in, however there are drug interactions with amlodipine which she obviously needs to continue taking since she had significant hypertension in the ER. After discussing risks and benefits with the patient, Paxlovid will not be prescribed since she has the potential of drug drug interactions with her blood pressure medication which she needs to continue taking. I instructed the patient to increase her amlodipine to 10 mg daily from 5mg since her current dose is clearly not controlling her blood pressure well at this time. I instructed her to call her primary care office and be seen for reevaluation immediately. Patient was given instructions on symptomatic management, follow up instructions, and return precautions for the emergency department. Patient indicated understanding and was discharged in stable condition. Critical Care Critical Care Time Critical Care Time: No
[2024-01-02 05:58] VITALS: BP 199/84
[2024-01-02] MEDS: LABETALOL 20MG/4ML SYRINGE 5 MG IV (05:58)
[2024-01-02] MEDS: AMLODIPINE 10MG TABLET 5 MG PO (06:00)
[2024-01-02 06:03] LABS: Influenza A, PCR Not Detected (NotDetected); Influenza B, PCR Not Detected (NotDetected)
[2024-01-02] MEDS: ACETAMINOPHEN 500MG TAB 1000 MG PO (06:04)
[2024-01-02] MEDS: IBUPROFEN 600 MG TABLET PO (06:05)
[2024-01-02 06:09] LABS: Basophils # 0.1 K/mm3 (0-0.2); Basophils % 1.1 % (0.1-2.0); Eosinophils # 0.3 K/mm3 (0.0-0.4); Eosinophils % 2.8 % (0.1-12.0); Hematocrit 43.8 % (37.0-47.0); Hemoglobin 14.1 g/dL (12.2-16.2); Lymphocytes # 1.2 K/mm3 (0.7-4.5); Lymphocytes % 12.8 % (10-50); Mean Corpuscular HGB Conc 32.1 g/dL (31.8-35.4); Mean Corpuscular Hemoglobin 29.7 pg (27.0-31.2); Mean Corpuscular Volume 92.6 fl (81-99); Mean Platelet Volume 7.9 fl (7.4-10.4); Monocytes # 0.5 K/mm3 (0.1-1.0); Monocytes % 5.1 % (1.7-9.3); Neutrophils # 7.4 K/mm3 (1.8-7.8); Neutrophils % 78.1 % (37.0-80.0); Platelet Count 329 K/mm3 (142-424); Red Blood Count 4.73 M/mm3 (4.20-5.40); White Blood Count 9.4 K/mm3 (4.8-10.8)
[2024-01-02 06:18] LABS: Alanine Aminotransferase 27 U/L (12-78); Albumin Level 3.8 g/dl (3.5-5.0); Albumin/Globulin Ratio 1.1 (1.1-1.8); Alkaline Phosphatase 106 U/L (38-126); Aspartate Amino Transferase 42 U/L (14-36); Bilirubin,Total 0.7 mg/dl (0.2-1.3); Blood Urea Nitrogen 12 mg/dl (7-17); Calcium 9.3 mg/dl (8.4-10.2); Carbon Dioxide 28 mmol/L (22.0-30.0); Chloride 111 mmol/L (98-107); Creatinine Clearance Estimated 57 mL/min (50-200); Estimated Glomerular Filt Rate 73 ml/min (>60); GFR (African American) 88 ML/MIN (>60); Globulin 3.6 g/dL (1.3-3.2); Glucose 91 mg/dl (74-100); Sodium 141 mmol/L (136-145); Total Protein,Serum 7.4 g/dl (6.3-8.2)
[2024-01-02 06:30] VITALS: BP 198/91; PULSE 60; O2SAT 97
[2024-01-02 06:30] LABS: Coronavirus 19, PCR Detected (NotDetected)
[2024-01-02 06:31] LABS: Troponin I < 0.01 ng/ml (0.00-0.034)
[2024-01-02] MEDS: HYDRALAZINE 20MG/ML VIAL 10 MG IV (06:31)
[2024-01-02 06:39] VITALS: BP 170/81; PULSE 69; O2SAT 98
[2024-01-02 06:53] VITALS: BP 170/81; PULSE 66; RESP 20; TEMP 36.8; O2SAT 97
== END 2024-01-02 06:55 | disposition home or self-care (01) ==
PROVIDERS: Emergency Provider Emergency Medicine; PCP Nurse Practitioner Family
DX: U07.1 COVID-19 (principal); R51.9 Headache, unspecified; R11.0 Nausea; H92.03 Otalgia, bilateral; R05.9 Cough, unspecified; I10 Essential (primary) hypertension; J44.9 Chronic obstructive pulmonary disease, unspecified
CPT/HCPCS: 70450; 71045; 80053; 84484; 85025; 87636; 93005; 96374; 96375; 96376; 99285; J0360

== ENCOUNTER 2024-01-05 11:06 | Emergency (ER) | payer OTHER, SELFPAY ==
[2024-01-05 11:07] VITALS: BP 163/97; PULSE 100; RESP 18; TEMP 36.7; O2SAT 96; BMI 21.1
--- NOTE | 2024-01-05 11:22 | PC.NURSE ---
DR BERGER AT BEDSIDE
--- NOTE | 2024-01-05 11:27 | ED_ITS ---
Discharge Plan Disposition Patient Disposition: Home, Self-Care Prescriptions Prescriptions: New nitrofurantoin monohyd/m-cryst [Macrobid] 100 mg capsule 100 mg PO BID 5 Days Qty: 10 0RF Rx Instructions: must administer with a meal/food No Action clonazepam 0.5 mg tablet 0.5 mg PO Q12H PRN (Reason: anxiety) Qty: 60 2RF Clenpiq 10 mg-3.5 gram- 12 gram/160 mL solution 160 ml PO DAILY Qty: 350 0RF Rx Instructions: take first dose at 5-9PM evening before colonoscopy; 2nd dose the next day approximately 5 hrs before colonoscopy amlodipine 5 mg tablet 5 mg PO DAILY mirtazapine 30 mg tablet 30 mg PO DAILY atorvastatin 10 mg tablet See Rx Instructions .ROUTE .COMPLEX Rx Instructions: TAKE ONE TABLET BY MOUTH ONCE A DAY FOR CHOLESTEROL nitrofurantoin monohyd/m-cryst [Macrobid] 100 mg capsule 100 mg PO BID Rx Instructions: must administer with a meal/food quetiapine [Seroquel] 50 mg tablet 50 mg PO DAILY Vraylar 1.5 mg capsule See Rx Instructions .ROUTE .COMPLEX Rx Instructions: TAKE ONE CAPSULE BY MOUTH ONCE A DAY cefdinir 300 mg capsule 300 mg PO BID 10 Days Qty: 20 0RF Referrals Follow up/Referrals: Sara Galvan APRN [Primary Care Provider] - See instructions Activity Restrictions/Add. Instructions Additional Instructions/Restrictions: Take the antibiotic as prescribed for your urinary tract infection. You can take Tylenol and ibuprofen to help with your symptoms. A follow-up with your primary care physician in 2 days if your symptoms do not improve. If you develop any new or worsening symptoms, or if you become concerned for your health for any reason, return to the emergency department for evaluation Clinical Impressions Clinical Impression: Urinary tract infection Instructions Patient Instructions: DI for Acute Abdominal Pain Print Language Print Language: Telugu Discharge ED Provider: Iain Atkins Adult [facility] General Chief complaint: Abdominal Pain Stated complaint: lower abd pain, covid + Time Seen by Provider: 01/05/24 11:20 Mode of Arrival: Ambulatory Source of Information: Patient Limitations: No Limitations Description of Symptoms (Recalled from ER Triage Doc. by RN): PT REPORTS LOWER ABDOMINAL PAIN X 2 DAYS. PT COVID + REPORTS PAIN CRAMPING, BURNING AND STABBING. DENIES URINARY SYMPTOMS, NORMAL BM YESTERDAY. History of Present Illness HPI narrative: Skylar Lyons is a 63F with a past medical history of hypertension, GERD, anxiety, COPD presenting to the emergency department for complaints of lower abdominal pain as well as burning with urination. Patient states over the last 2 days, she has had pain just below her bellybutton that is burning in nature. She is also noted burning with urination and some blood in her urine. She reports that she has frequent urinary tract infections and this feels similar to those. She notes that she was diagnosed with COVID on 01/01. She denies any recent fevers, nausea, vomiting, diarrhea, constipation. She notes that she has normal bowel movements and usually goes twice a day. Her last bowel movement was yesterday. She denies any vaginal bleeding or discharge. She has been taking Tylenol and ibuprofen for her symptoms and states that this helps relieve her pain. Related Data Home Medications ?Medication ?Instructions ?Recorded ?Confirmed amlodipine 5 mg tablet 5 mg PO DAILY . 01/10/23 01/10/23 atorvastatin 10 mg tablet See Rx Instructions .Route 01/10/23 01/10/23 .COMPLEX . cariprazine 1.5 mg capsule See Rx Instructions .Route 01/10/23 01/10/23 (Vraylar) .COMPLEX . mirtazapine 30 mg tablet 30 mg PO DAILY . 01/10/23 01/10/23 nitrofurantoin 100 mg PO BID abx 01/10/23 01/10/23 monohydrate/macrocrystals 100 mg capsule (Macrobid) quetiapine 50 mg tablet (Seroquel) 50 mg PO DAILY . 01/10/23 01/10/23 Previous Rx's ?Medication ?Instructions ?Recorded clonazepam 0.5 mg tablet 0.5 mg PO Q12H PRN anxiety #60 tabs 09/01/22 sod picosulf 10 mg-magnes 3.5 160 ml PO DAILY 2 doses #350 mL 02/22/23 gram-citric 12 gram/160 mL oral solution (Clenpiq) cefdinir 300 mg capsule 300 mg PO BID 10 days #20 caps 09/17/23 nitrofurantoin 100 mg PO BID 5 days #10 caps 01/05/24 monohydrate/macrocrystals 100 mg capsule (Macrobid) Allergies Allergy/AdvReac Type Severity Reaction Status Date / Time amlodipine [From Norvasc] Allergy Severe Redness of Verified 01/10/23 08:57 Skin furosemide [From Lasix] Allergy Severe swelling, Verified 01/10/23 08:57 pain, rash codeine [CODEINE] Allergy Intermediate I-HIVES Verified 01/10/23 08:57 morphine [MORPHINE] Allergy Intermediate I-HIVES Verified 01/10/23 08:57 penicillin G [PENICILLIN G] Allergy Intermediate I-HIVES Verified 01/10/23 08:57 [facility] Disclaimer: The information contained in this section may have been updated after the patient was seen, as this information can be updated by other users. Medical History Anxiety COPD (chronic obstructive pulmonary disease) Diastolic dysfunction GERD (gastroesophageal reflux disease) History of left heart catheterization (LHC) Palpitations Postmenopausal bleeding Uterine prolapse stage 2 Surgical History History of section History of cholecystectomy History of colonoscopy Family History Other No significant family history Social History Smoking Status: Current every day smoker second hand exposure: Yes alcohol intake: never substance use type: denies use current occupational status: employed and other Travel in the last 8 weeks: None household members: spouse housing: house ROS Obtained: Yes Systems reviewed as appropriate & no additional complaints except as documented Physical Exam General General appearance: alert and in no apparent distress Head Head exam: atraumatic Eye Eye exam: Present normal appearance ENT ENT exam: Present normal external ear exam Neck Neck exam: Present full ROM Chest Chest inspection: Present symmetric chest wall rise Respiratory Respiratory exam: Present normal lung sounds bilaterally; Absent respiratory distress Cardiovascular Cardiovascular exam: Present regular rate and normal rhythm Abdominal Exam Abdominal exam: Present soft and tenderness; Absent guarding, rebound or rigidity Abdominal tenderness: Present suprapubic Extremities Exam Extremities exam: Present normal inspection Back Exam Back exam: Present normal inspection Neurological Exam Neurological exam: Present alert and oriented X3 Psychiatric Psychiatric exam: Present normal affect Skin Skin exam: Present warm and dry Medical Decision Making Remi Inquiry Pt receiving controlled substance: No Vital Signs: 01/05/24 11:07 01/05/24 11:31 Temperature 98.0 F Temperature Source Oral Pulse Rate [Radial] 100 H Respiratory Rate 18 Blood Pressure 139/78 Blood Pressure [Left Arm] 163/97 H Blood Pressure Mean 98 Blood Pressure Mean [Left Arm] 119 Blood Pressure Source [Left Arm] Automatic Cuff Blood Pressure Position [Left Arm] Sitting 02 Sat by Pulse Oximetry 96 Oxygen Delivery Method Room Air Lab Data Lab Results 01/05/24 11:20: Sodium 139, Potassium 3.6, Chloride 110 H, Carbon Dioxide 23, Anion Gap 9.6, BUN 16, Creatinine 1.00, Estimated Creat Clear 57, Estimated GFR 56 L, Est GFR ( Amer) 68, Glucose 104 H, Calcium 8.9, Total Bilirubin 0.9, AST 61 H, ALT 38, Alkaline Phosphatase 160 H, Total Protein 7.4, Albumin 3.8, Globulin 3.6 H, Albumin/Globulin Ratio 1.1, Lipase 41 01/05/24 12:00: Urine Color Yellow, Urine Appearance Cloudy, Urine pH 6.5, Ur Specific [place] <= 1.005, Urine Protein Negative, Urine Glucose (UA) Negative, Urine Ketones Negative, Urine Blood 3+ A, Urine Nitrate Negative, Urine Bilirubin Negative, Urine Urobilinogen 0.2, Ur Leukocyte Esterase 3+ A 01/05/24 : WBC 26.6 H*, RBC 4.97, Hgb 14.7, Hct 45.4, MCV 91.3, MCH 29.5, MCHC 32.3, RDW 13.6, Plt Count 350, MPV 9.9, Neut % (Auto) 88.6 H, Lymph % (Auto) 6.7 L, [place] % (Auto) 3.8, Eos % (Auto) 0.4, Baso % (Auto) 0.4, Neut # (Auto) 23.6 H, Lymph # (Auto) 1.8, [place] # (Auto) 1.0, Eos # (Auto) 0.1, Baso # (Auto) 0.1, Total Counted 100, Neutrophils % (Manual) 84 H, Band Neutrophils % 2.0, Lymphocytes % (Manual) 10, Monocytes % (Manual) 4, Platelet Estimate Normal, RBC Morphology Normal 01/05/24 Unknown 01/05/24 11:20 Orders (Tests/Meds): ORDERS Category Date Time Status CBC w/Auto Diff [Complete Blood Count Auto Diff] Stat Lab 01/05/24 Completed CMP [Comprehensive Metabolic Panel] Stat Lab 01/05/24 11:20 Completed Lipase Stat Lab 01/05/24 11:20 Completed Urinalysis and Microscopic Stat Lab 01/05/24 12:00 Results Urine Culture Stat Micro 01/05/24 12:00 Received Medical Decision Narrative: Skylar Lyons is a 63F with a past medical history of COPD, hypertension, GERD, recurrent UTIs who presents to the emergency department for complaints of burning with urination as well as suprapubic abdominal pain x 2 days. She is noted some hematuria with her symptoms as well. She reports that this feels similar to previous urinary tract infections. She notes that she was diagnosed with COVID on 01/01. She has had normal bowel movements. Physical exam shows an overall well-appearing female in no distress. She has mild suprapubic abdominal tenderness without guarding or rebound. Physical exam is otherwise unremarkable. She is requesting water to drink at this time. Differential diagnosis includes: Urinary tract infection, constipation, diverticulitis, ovarian torsion, appendicitis, among others. Workup in the emergency department included: Urinalysis, CBC with differential, lipase, CMP. CT abdomen pelvis with IV contrast was considered to evaluate for diverticulitis and appendicitis, however based on the patient's physical exam without right lower quadrant tenderness and no bloody stools and no history of diverticulitis, is felt that these are unlikely and that the risk of radiation exposure outweighs the potential benefits. Workup was significant for leukocytosis of 26.6 with neutrophil predominance. Patient did not receive steroids on her previous ED visit. Patient's urine studies demonstrated 3+ blood in her urine, 3+ leukocyte esterase, negative nitrites. This is consistent with a urinary tract infection. Patient's leukocytosis is likely secondary from her UTI and COVID infection, however she does not appear septic at this time and no additional workup is indicated. Patient states that the pain is improving and is eager to get home. It is felt that she is appropriate for discharge at thist time. Patient will be treated with a course of Macrobid. She is instructed to follow-up with her primary care physician. Return precautions were given. All questions were answered. She demonstrated understanding and was in agreement with this plan. She remained hemodynamically stable throughout her entire ED visit and was appropriate for discharge at this time. Critical Care Critical Care Time Critical Care Time: No
[2024-01-05 11:31] VITALS: BP 139/78
[2024-01-05 11:35] LABS: Albumin Level 3.8 g/dl (3.5-5.0); Chloride 110 mmol/L (98-107)
[2024-01-05 11:36] LABS: Potassium 3.6 mmoL/L (3.5-5.1); Sodium 139 mmol/L (136-145)
[2024-01-05 11:38] LABS: Alanine Aminotransferase 38 U/L (12-78); Albumin/Globulin Ratio 1.1 (1.1-1.8); Alkaline Phosphatase 160 U/L (38-126); Anion Gap 9.6 mEq/L (5-15); Aspartate Amino Transferase 61 U/L (14-36); Bilirubin,Total 0.9 mg/dl (0.2-1.3); Blood Urea Nitrogen 16 mg/dl (7-17); Carbon Dioxide 23 mmol/L (22.0-30.0); Creatinine Clearance Estimated 57 mL/min (50-200); Estimated Glomerular Filt Rate 56 ml/min (>60); GFR (African American) 68 ML/MIN (>60); Globulin 3.6 g/dL (1.3-3.2); Total Protein,Serum 7.4 g/dl (6.3-8.2)
[2024-01-05 11:39] LABS: Calcium 8.9 mg/dl (8.4-10.2); Glucose 104 mg/dl (74-100); Lipase 41 U/L (23-300)
[2024-01-05 11:57] LABS: Basophils # 0.1 K/mm3 (0-0.2); Basophils % 0.4 % (0.1-2.0); Eosinophils # 0.1 K/mm3 (0.0-0.4); Eosinophils % 0.4 % (0.1-12.0); Hematocrit 45.4 % (37.0-47.0); Hemoglobin 14.7 g/dL (12.2-16.2); Lymphocytes # 1.8 K/mm3 (0.7-4.5); Lymphocytes % 6.7 % (10-50); MANUAL DIFFERENTIAL MANUAL DIFFERENTIAL (MANUAL DIFF); Mean Corpuscular HGB Conc 32.3 g/dL (31.8-35.4); Mean Corpuscular Hemoglobin 29.5 pg (27.0-31.2); Mean Corpuscular Volume 91.3 fl (81-99); Mean Platelet Volume 9.9 fl (7.4-10.4); Monocytes % 3.8 % (1.7-9.3); Neutrophils # 23.6 K/mm3 (1.8-7.8); Neutrophils % 88.6 % (37.0-80.0); Platelet Count 350 K/mm3 (142-424); Red Blood Count 4.97 M/mm3 (4.20-5.40); Red Cell Distribution Width 13.6 % (11.5-17.5); White Blood Count 26.6 K/mm3 (4.8-10.8)
[2024-01-05 12:03] LABS: Microscopic, Urine URINE MICROSCOPIC (MICROSCOPIC)
[2024-01-05 12:11] LABS: Appearance,Urine CLOUDY (Clear); Bilirubin,Urine Negative (Negative); Blood, Urine 3+ (Negative); Color,Urine YELLOW (Yellow); Glucose,Urine (UA) Negative (Negative); Ketones,Urine Negative (Negative); Leukocyte Esterase,Urine 3+ (Negative); Nitrate,Urine Negative (Negative); PH,Urine 6.5 (5.0-8.5); Protein,Urine Negative (Negative); Specific Gravity, Urine <= 1.005 (1.005-1.030); Urobilinogen,Urine 0.2 EU/dl (0.2)
[2024-01-05 12:19] LABS: Lymphocytes % 10 % (10-50); Monocytes % 4 % (2-9); Neutrophils % 84 % (42-76); Platelet Estimate Normal; RBC Morphology Normal; Total Cells Counted 100
[2024-01-05 12:22] LABS: WBC,Urine 20-50 #/hpf (0-3)
[2024-01-05 12:23] LABS: Bacteria,Urine 1+ /lpf
[2024-01-05 12:31] VITALS: BP 156/89; PULSE 87; RESP 18; TEMP 37.2
--- NOTE | 2024-01-08 08:42 | PC.NURSE ---
urine culture discussed with , pt dc with macrobid, ntd
== END 2024-01-05 12:34 | disposition home or self-care (01) ==
PROVIDERS: Emergency Provider Student in an Organized Health Care Education/Training Program; PCP Nurse Practitioner Family
DX: N39.0 Urinary tract infection, site not specified (principal); B96.29 Other Escherichia coli [E. coli] as the cause of diseases classified elsewhere; R10.30 Lower abdominal pain, unspecified; D72.829 Elevated white blood cell count, unspecified
CPT/HCPCS: 80053; 81001; 83690; 85007; 85025; 85027; 87086; 87088; 87186; 99283

== ENCOUNTER 2024-03-03 12:06 | Observation (INO) | payer OTHER, SELFPAY ==
[2024-03-03] VITALS (10 sets, daily range): BP systolic 120–231; BP diastolic 66–136; PULSE 80–113; RESP 16–20; TEMP 36.6–37.3; O2SAT 95–98; BMI 22.2
--- NOTE | 2024-03-03 12:01 | PC.NURSE ---
DR CÁRDENAS AT BEDSIDE
[2024-03-03 12:20] LABS: Microscopic, Urine URINE MICROSCOPIC (MICROSCOPIC)
[2024-03-03 12:23] LABS: Basophils # 0.1 K/mm3 (0-0.2); Basophils % 1.2 % (0.1-2.0); Eosinophils # 0.2 K/mm3 (0.0-0.4); Eosinophils % 1.9 % (0.1-12.0); Hematocrit 39.4 % (37.0-47.0); Hemoglobin 13.6 g/dL (12.2-16.2); Lymphocytes % 16.7 % (10-50); Mean Corpuscular HGB Conc 34.6 g/dL (31.8-35.4); Mean Corpuscular Hemoglobin 29.4 pg (27.0-31.2); Mean Corpuscular Volume 85.2 fl (81-99); Mean Platelet Volume 7.9 fl (7.4-10.4); Monocytes # 0.6 K/mm3 (0.1-1.0); Monocytes % 4.7 % (1.7-9.3); Neutrophils # 8.9 K/mm3 (1.8-7.8); Neutrophils % 75.5 % (37.0-80.0); Platelet Count 463 K/mm3 (142-424); Red Blood Count 4.62 M/mm3 (4.20-5.40); Red Cell Distribution Width 14.4 % (11.5-17.5); White Blood Count 11.7 K/mm3 (4.8-10.8)
--- NOTE | 2024-03-03 12:23 | US_ITS ---
PROCEDURE INFORMATION: Exam: US Pelvis, Transvaginal, Non-Obstetric Exam date and time: 03/03/2024 12:36 PM Age: 63 years old Clinical indication: Other: Post menop bleeding; Patient HX: Gross amt of bright red vag bleeding; Additional info: Vaginal bleeding TECHNIQUE: Imaging protocol: Real-time transvaginal pelvic (non-obstetric) ultrasound with image documentation. Transvaginal imaging was used for better evaluation of the endometrium, adnexa, and/or cervix. COMPARISON: No relevant prior studies available. FINDINGS: Uterus: Uterus measures 8.1 x 5.1 x 6 cm. Endometrium measures 3.7 cm in thickness. Retroverted uterus. 1.7 x 2 cm x 2.2 cm uterine fibroid in the posterior segment/subserosal location. Endocervical canal appears distended and with echogenic material. Multiple cystic structures (at least 4) are present within the endometrial canal, the largest measuring 3.3 x 1.8 cm. Right ovary/adnexa: Normal. No mass. Normal ovarian blood flow on color Doppler. Right ovary measures 2.3 x 1.4 x 1.1 cm. Left ovary/adnexa: Left ovary not seen. Urinary bladder: Urinary bladder is limited. Intraperitoneal space: No free fluid. IMPRESSION: 1. Cystic endometrial hyperplasia versus neoplasia. 2. 1.7 x 2 cm x 2.2 cm uterine fibroid in the posterior segment/subserosal location. 3. Suggested hemorrhagic products in the endocervical canal. COMMENTS: OBGYN consultation is recommended.
--- NOTE | 2024-03-03 12:29 | CT_ITS ---
FINAL REPORT TECHNIQUE: Axial images through the abdomen and pelvis were performed without contrast. This study was performed with techniques to keep radiation doses as low as reasonably achievable, (ALARA). Individualized dose reduction techniques using automated exposure control or adjustment of mA and/or kV according to the patient's size were employed. CLINICAL HISTORY: hematuria COMPARISON: 04/30/2021 FINDINGS: ABDOMEN: There is mild bibasilar atelectasis. The heart size is normal. Limited images of the liver are unremarkable. The patient is status postcholecystectomy. The spleen is normal. No adrenal mass is identified. The aorta is normal in caliber. There is no significant free fluid or adenopathy. There are less than 3 mm bilateral nonobstructing renal stones. Multiple left renal cysts are identified, stable. There is no hydronephrosis. PELVIS: The appendix is normal. There is a low-attenuation centrally in the uterus with prominent cervix, question a cervical mass or cervical obstruction. There are several small sclerotic foci in the pelvis which are stable and nonspecific. The urinary bladder is unremarkable. There is no significant free fluid or adenopathy. IMPRESSION: Bilateral nephrolithiasis. Question cervical mass or cervical obstruction. Recommend correlation with physical exam. Reviewed, Interpreted and Dictated by Jose Mello III, MD Transcribed by Zenobia Doss Authenticated and [facility]
[2024-03-03 12:30] LABS: Activated Partial Thrombo Time 25.2 seconds (22.8-30.6); INR 0.98 (0.9-1.1)
[2024-03-03 12:36] LABS: Appearance,Urine SL CLOUDY (Clear); Blood, Urine 3+ (Negative); Chloride 108 mmol/L (98-107); Color,Urine YELLOW (Yellow); Glucose,Urine (UA) Negative (Negative); Ketones,Urine Negative (Negative); Leukocyte Esterase,Urine 1+ (Negative); Nitrate,Urine POSITIVE (Negative); Protein,Urine 1+ (Negative); Specific Gravity, Urine 1.025 (1.005-1.030)
[2024-03-03 12:37] LABS: Potassium 3.6 mmoL/L (3.5-5.1); Sodium 143 mmol/L (136-145)
[2024-03-03 12:39] LABS: Blood Urea Nitrogen 16 mg/dl (7-17); Creatinine Clearance Estimated 60 mL/min (50-200); Estimated Glomerular Filt Rate 64 ml/min (>60); GFR (African American) 77 ML/MIN (>60)
[2024-03-03 12:40] LABS: Alanine Aminotransferase 17 U/L (12-78); Albumin/Globulin Ratio 1.1 (1.1-1.8); Alkaline Phosphatase 125 U/L (38-126); Anion Gap 11.6 mEq/L (5-15); Aspartate Amino Transferase 33 U/L (14-36); Bilirubin,Total 0.7 mg/dl (0.2-1.3); Calcium 9.1 mg/dl (8.4-10.2); Carbon Dioxide 27 mmol/L (22.0-30.0); Globulin 3.7 g/dL (1.3-3.2); Glucose 108 mg/dl (74-100); Total Protein,Serum 7.7 g/dl (6.3-8.2)
[2024-03-03 12:56] LABS: Bilirubin,Urine Negative (Negative)
[2024-03-03 12:57] LABS: Bacteria,Urine 3+ /lpf
--- NOTE | 2024-03-03 13:10 | PC.NURSE ---
PT RETURNED FROM US
--- NOTE | 2024-03-03 13:38 | PC.NURSE ---
DR CÁRDENAS SPEAKING WITH DR FREDERICK
--- NOTE | 2024-03-03 13:45 | PC.NURSE ---
[facility] SUPERVISOR/ONC CONTACTED AT THIS TIME, AWAITING CALL BACK
--- NOTE | 2024-03-03 14:09 | PC.NURSE ---
Dr. Mohr speaking with angelMD at this time.
[2024-03-03] MEDS: diazePAM 5MG TABLET 5 MG PO (14:27)
--- NOTE | 2024-03-03 14:30 | PC.NURSE ---
DR CÁRDENAS IS SPEAKING TO [facility] AT THIS TIME
--- NOTE | 2024-03-03 14:32 | PC.NURSE ---
HOUSE AWARE OF ADMISSION
--- NOTE | 2024-03-03 14:44 | PC.NURSE ---
CALLED REPORT TO SHIRLENE METZ IN [facility].
--- NOTE | 2024-03-03 14:50 | HMH.PHAINT1 ---
Pharmacy Intervention Comments: MEDICATION RECONCILIATION COMPLETED ON PATIENT USING EXTERNAL FILL HISTORY FROM PHARMACY. -JOSE GUADALUPE MCCOY, KIMBERLYD
--- NOTE | 2024-03-03 15:00 | PC.NURSE ---
Patient arrived to the unit at this time via wheelchair.
--- NOTE | 2024-03-03 15:24 | ED_ITS ---
Discharge Plan Disposition Patient Disposition: Admitted Condition: Good Clinical Impressions Clinical Impression: Mass of uterus, Anxiety, Vaginal bleeding High blood pressure Qualifiers: Hypertension type: primary hypertension Qualified Code(s): I10 - Essential (primary) hypertension Discharge ED Provider: Yarelis Mohr General Adult HPI General Chief complaint: Vaginal Bleeding Stated complaint: Vaginal Bleeding Time Seen by Provider: 03/03/24 12:17 Mode of Arrival: EMS Source of Information: Patient Limitations: No Limitations Description of Symptoms (Recalled from ER Triage Doc. by RN): Patient reports vaginal bleeding for two weeks and burning with urination. Also reports shaking and being nervous. History of Present Illness HPI narrative: This patient is a 63-year-old female who has a history of hypertension, depression/anxiety, GERD, COPD presenting to the emergency department for evaluation with concern for vaginal bleeding. She notes it has been light for about 3 weeks now, but it got worse today. She also complains that she is extremely anxious and shaking because she is so nervous. She does not follow with a enrollment management vice president. No reported recent vaginal trauma. Related Data Home Medications ?Medication ?Instructions ?Recorded ?Confirmed cariprazine 3 mg capsule (Vraylar) 3 mg PO DAILY 03/03/24 03/03/24 fluoxetine 10 mg capsule 10 mg PO DAILY 03/03/24 03/03/24 losartan 50 mg tablet 50 mg PO DAILY 03/03/24 03/03/24 omeprazole 20 mg capsule,delayed 20 mg PO DAILY 03/03/24 03/03/24 release Allergies Allergy/AdvReac Type Severity Reaction Status Date / Time amlodipine [From Norvasc] Allergy Severe Redness of Verified 01/10/23 08:57 Skin furosemide [From Lasix] Allergy Severe swelling, Verified 01/10/23 08:57 pain, rash codeine [CODEINE] Allergy Intermediate I-HIVES Verified 01/10/23 08:57 morphine [MORPHINE] Allergy Intermediate I-HIVES Verified 01/10/23 08:57 penicillin G [PENICILLIN G] Allergy Intermediate I-HIVES Verified 01/10/23 08:57 [facility] Disclaimer: The information contained in this section may have been updated after the patient was seen, as this information can be updated by other users. Medical History Uterine prolapse Postmenopausal bleeding History of left heart catheterization (LHC) Anxiety GERD (gastroesophageal reflux disease) COPD (chronic obstructive pulmonary disease) Palpitations Diastolic dysfunction Surgical History History of cholecystectomy History of colonoscopy History of section Family History Other Family history of cancer Social History Smoking Status: Never smoker second hand exposure: Yes alcohol intake: never substance use type: denies use current occupational status: employed Travel in the last 8 weeks: None household members: significant other and children housing: house marital status: do you feel safe at home: Yes victim of physical abuse: No victim of emotional abuse: No victim of sexual abuse: No Other Medical History Have you received the Flu Vaccine for this season: No Have you received the Pneumonia Vaccine: No ROS Obtained: Yes All systems reviewed & no additional complaints except as documented Physical Exam General General appearance: alert, in no apparent distress and anxious Head Head exam: atraumatic and normocephalic Eye Eye exam: Present normal appearance, PERRL and EOMI ENT ENT exam: Present normal exam, normal oropharynx, mucous membranes moist and normal external ear exam Neck Neck exam: Present normal inspection, full ROM and trachea midline; Absent tenderness Chest Chest inspection: Present normal inspection and symmetric chest wall rise; Absent tenderness Respiratory Respiratory exam: Present normal lung sounds bilaterally; Absent respiratory distress, wheezes, stridor or accessory muscle use Cardiovascular Cardiovascular exam: Present regular rate and normal rhythm Abdominal Exam Abdominal exam: Present soft; Absent distention, tenderness or guarding Extremities Exam Extremities exam: Present normal inspection, full ROM and normal capillary refill; Absent tenderness or edema Back Exam Back exam: Present normal inspection and full ROM; Absent tenderness Neurological Exam Neurological exam: Present alert, oriented X3, CN II-XII intact and normal gait; Absent motor sensory deficit Psychiatric Psychiatric exam: Present anxious Skin Skin exam: Present warm and dry Medical Decision Making Medical Records Medical records reviewed: Yes I reviewed the patient's medical records. Screening: Per USPSTF and CDC recommendations, given the prevalence of disease in our region, it is our hospital?s policy to screen for HIV and viral Hepatitis for all patients aged 18 and over and those with ongoing risk factors. Remi Inquiry Pt receiving controlled substance: No Vital Signs: 03/03/24 12:06 03/03/24 12:30 03/03/24 13:30 Temperature 99.2 F Temperature Source Oral Pulse Rate 89 106 H Pulse Rate [Radial] 88 Respiratory Rate 16 18 18 Blood Pressure 193/104 H 194/111 H Blood Pressure [Right Arm] 201/115 H Blood Pressure Mean 147 139 Blood Pressure Mean [Right Arm] 143 Blood Pressure Source Blood Pressure Source [Right Arm] Automatic Cuff Blood Pressure Position Blood Pressure Position [Right Arm] Sitting 02 Sat by Pulse Oximetry 96 97 96 Oxygen Delivery Method Room Air 03/03/24 13:36 03/03/24 14:30 03/03/24 14:38 Temperature Temperature Source Pulse Rate 93 H 105 H 113 H Pulse Rate [Radial] Respiratory Rate 18 20 20 Blood Pressure 219/129 H 231/136 H 189/117 H Blood Pressure [Right Arm] Blood Pressure Mean 159 180 149 Blood Pressure Mean [Right Arm] Blood Pressure Source Blood Pressure Source [Right Arm] Blood Pressure Position Blood Pressure Position [Right Arm] 02 Sat by Pulse Oximetry 98 98 97 Oxygen Delivery Method 03/03/24 14:45 Temperature 98.8 F Temperature Source Oral Pulse Rate 113 H Pulse Rate [Radial] Respiratory Rate 20 Blood Pressure 189/117 H Blood Pressure [Right Arm] Blood Pressure Mean Blood Pressure Mean [Right Arm] Blood Pressure Source Automatic Cuff Blood Pressure Source [Right Arm] Blood Pressure Position Sitting Blood Pressure Position [Right Arm] 02 Sat by Pulse Oximetry Oxygen Delivery Method Room Air Lab Data Lab results reviewed: Yes I reviewed the patient's lab results. Lab Results 03/03/24 12:03: WBC 11.7 H, RBC 4.62, Hgb 13.6, Hct 39.4, MCV 85.2, MCH 29.4, MCHC 34.6, RDW 14.4, Plt Count 463 H, MPV 7.9, Neut % (Auto) 75.5, Lymph % (Auto) 16.7, [place] % (Auto) 4.7, Eos % (Auto) 1.9, Baso % (Auto) 1.2, Neut # (Auto) 8.9 H, Lymph # (Auto) 2.0, [place] # (Auto) 0.6, Eos # (Auto) 0.2, Baso # (Auto) 0.1, PT 11.0, INR 0.98, APTT 25.2, Sodium 143, Potassium 3.6, Chloride 108 H, Carbon Dioxide 27, Anion Gap 11.6, BUN 16, Creatinine 0.90, Estimated Creat Clear 60, Estimated GFR 64, Est GFR ( Amer) 77, Glucose 108 H, Calcium 9.1, Total Bilirubin 0.7, AST 33, ALT 17, Alkaline Phosphatase 125, Total Protein 7.7, Albumin 4.0, Globulin 3.7 H, Albumin/Globulin Ratio 1.1, Urine Color Yellow, Urine Appearance Sl cloudy, Urine pH 6.0, Ur Specific [place] 1.025, Urine Protein 1+ A, Urine Glucose (UA) Negative, Urine Ketones Negative, Urine Blood 3+ A, Urine Nitrate Positive, Urine Bilirubin Negative, Urine Urobilinogen 2.0, Ur Leukocyte Esterase 1+ A, Urine RBC 10-20, Urine WBC 10-20, Ur Squamous Epith Cells 3-5, Urine Bacteria 3+ 03/03/24 12:03 03/03/24 12:03 Orders (Tests/Meds): ED MEDICATIONS Generic Name Dose Route Start Last Admin Trade Name Freq PRN Reason Stop Dose Admin Alprazolam 0.5 mg 03/03/24 16:37 Alprazolam 0.5mg Tablet PO 04/02/24 16:36 Q8HP PRN Anxiety Fluoxetine HCl 10 mg 03/04/24 09:00 Fluoxetine 10mg Capsule PO 04/03/24 08:59 DAILY ADAM Irbesartan 75 mg 03/04/24 09:00 Irbesartan 75mg Tablet PO 04/03/24 08:59 DAILY ADAM Pantoprazole Sodium 40 mg 03/04/24 21:00 Pantoprazole 40mg Tablet PO 04/03/24 20:59 HS ADAM Discontinued Medications Generic Name Dose Route Start Last Admin Trade Name Freq PRN Reason Stop Dose Admin Diazepam 5 mg 03/03/24 14:23 03/03/24 14:27 Diazepam 5mg Tablet PO 03/03/24 14:24 5 mg ONCE ONE Administration ORDERS Category Date Time Status CT abdomen pelvis wo con Stat Cat Scan 03/03/24 12:29 Completed US transvaginal Stat Exams 03/03/24 12:23 Completed CBC w/Auto Diff [Complete Blood Count Auto Diff] AMLAB Lab 03/04/24 06:00 Ordered Complete Blood Count Auto Diff Stat Lab 03/03/24 12:03 Completed Comprehensive Metabolic Panel Stat Lab 03/03/24 12:03 Completed PT INR [Prothrombin Time INR] Stat Lab 03/03/24 12:03 Completed PTT [Activated Partial Thrombo Time] Stat Lab 03/03/24 12:03 Completed UA [Urinalysis and Microscopic] Stat Lab 03/03/24 12:03 Completed Urine Culture Stat Micro 03/03/24 12:03 Received Medical Decision Narrative: In summary, this patient is a 63-year-old female presenting to the Emergency Department for evaluation of vaginal bleeding. Differential diagnoses considered include but are not limited to uterine fibroid, uterine mass, cervical mass, vaginal laceration. Ruling out the most morbid conditions drove assessment. It should be noted patient's history includes anxiety which is not at goal therapy. This complicates all aspects of care by increasing patient's risk for morbidity. On exam, the patient is extremely anxious appearing. She is hypertensive and tachycardic, which I presume is likely related to her anxious/panic state. She has pooling in the vaginal vault on exam as well as some clots in the vaginal vault, but no severe hemorrhage. Workup included lab evaluation as well as CT scan of the abdomen and pelvis and transvaginal ultrasound. I independently interpreted the scan and ultrasound prior to the radiologist read and noted concerns for uterine mass with bleeding. Please see their read for final interpretation. Radiology agrees that the patient has concerns for a uterine mass with a lot of vaginal bleeding and cervical debris. Labs were obtained that demonstrated hemoglobin is normal at 13.6.. On reassessment, I shared the patient's results with her and explained to her that the findings were very concerning for cancer and that we were going to come up with a plan to get her evaluated by gynecology/oncology. She then had a breakdown and started crying and panicking stating that she wanted to go home over and over again. I advised her that we cannot hold her here against her will and if she chooses to go home then that is up to her, but I wanted to make sure that she understood that she is having a concerning amount of vaginal bleeding. She is agreeable to have me call [facility] gynecology/oncology for recommendations. I spoke with Dr. Ni in the transfer center who spoke with gynecology on-call and they advised that they would wait list the patient for a bed there, but they do not currently have beds at this time. Since she is stable, they could not override divert to bring her over, but she is waitlisted for a nursery teacher/onc bed. I advised to the patient that she is waitlisted there and that they recommended admission here for continued monitoring pending bed availability, and she continued to panic and cry stating that she wanted to go home. We had a very long discussion regarding discharge home with outpatient follow-up versus admission, and after speaking with her family, she is agreeable to admission, but she still severely anxious and panicking. She was severely hypertensive during this episode. I did administer 5 mg of p.o. Valium for this. After she started to calm down, her blood pressure did improve. I had an interactive discussion with Dr. Gil with gynecology who is in agreement to admit the patient here for continued monitoring pending nursery teacher onc assessment. Patient was admitted in stable condition Critical Care Critical Care Time Critical Care Time: No
--- NOTE | 2024-03-03 16:09 | PC.NURSE ---
Dr. Gil at bedside.
--- NOTE | 2024-03-03 16:26 | P.HP_ITS ---
History of Present Illness *Admission Date: 03/03/24 *Reason for visit:: Vaginal bleeding, uterine fibroids, intra uterine mult icystic mass possible *History of present illness: This patient is a 63-year-old female who has a history of hypertension, depression/anxiety, GERD, COPD presenting to the emergency department for evaluation with concern for vaginal bleeding. She notes it has been light for about 3 weeks now, but it got worse today. She also complains that she is extremely anxious and shaking because she is so nervous. She does not follow with a academic affairs director. No reported recent vaginal trauma. [facility] Disclaimer: The information contained in this section may have been updated after the patient was seen, as this information can be updated by other users. Medical History Uterine prolapse Postmenopausal bleeding History of left heart catheterization (LHC) Anxiety GERD (gastroesophageal reflux disease) COPD (chronic obstructive pulmonary disease) Palpitations Diastolic dysfunction Surgical History History of cholecystectomy History of colonoscopy History of section Family History Family history of cancer Social History Smoking Status: Never smoker second hand exposure: Yes alcohol intake: never substance use type: denies use current occupational status: employed Travel in the last 8 weeks: None household members: significant other and children housing: house marital status: do you feel safe at home: Yes victim of physical abuse: No victim of emotional abuse: No victim of sexual abuse: No Other Medical History Have you received the Flu Vaccine for this season: No Have you received the Pneumonia Vaccine: No Review of Systems Review of Systems Review of systems:: pertinent systems reviewed and negative unless documented below Meds Home Medications and Allergies Home Medications ?Medication ?Instructions ?Recorded ?Confirmed ?Type cariprazine 3 mg capsule (Vraylar) 3 mg PO DAILY 03/03/24 03/03/24 History fluoxetine 10 mg capsule 10 mg PO DAILY 03/03/24 03/03/24 History losartan 50 mg tablet 50 mg PO DAILY 03/03/24 03/03/24 History omeprazole 20 mg capsule,delayed 20 mg PO DAILY 03/03/24 03/03/24 History release New Prescriptions to Start Prescriptions: Allergies Allergy/AdvReac Type Severity Reaction Status Date / Time amlodipine [From Norvasc] Allergy Severe Redness of Verified 01/10/23 08:57 Skin furosemide [From Lasix] Allergy Severe swelling, Verified 01/10/23 08:57 pain, rash codeine [CODEINE] Allergy Intermediate I-HIVES Verified 01/10/23 08:57 morphine [MORPHINE] Allergy Intermediate I-HIVES Verified 01/10/23 08:57 penicillin G [PENICILLIN G] Allergy Intermediate I-HIVES Verified 01/10/23 08:57 Exam Data for Last 24 hours Vital signs and Labs for Last 24 Hours: Temp Pulse Resp BP Pulse Ox O2 Del Method 97.8 F 80 17 142/74 H 96 Room Air 03/03/24 15:39 03/03/24 15:39 03/03/24 15:39 03/03/24 15:39 03/03/24 15:45 03/03/24 15:45 Laboratory Results - last 24 hr 03/03/24 12:03: WBC 11.7 H, RBC 4.62, Hgb 13.6, Hct 39.4, MCV 85.2, MCH 29.4, MCHC 34.6, RDW 14.4, Plt Count 463 H, MPV 7.9, Neut % (Auto) 75.5, Lymph % (Auto) 16.7, [place] % (Auto) 4.7, Eos % (Auto) 1.9, Baso % (Auto) 1.2, Neut # (Auto) 8.9 H, Lymph # (Auto) 2.0, [place] # (Auto) 0.6, Eos # (Auto) 0.2, Baso # (Auto) 0.1, PT 11.0, INR 0.98, APTT 25.2, Sodium 143, Potassium 3.6, Chloride 108 H, Carbon Dioxide 27, Anion Gap 11.6, BUN 16, Creatinine 0.90, Estimated Creat Clear 60, Estimated GFR 64, Est GFR ( Amer) 77, Glucose 108 H, Calcium 9.1, Total Bilirubin 0.7, AST 33, ALT 17, Alkaline Phosphatase 125, Total Protein 7.7, Albumin 4.0, Globulin 3.7 H, Albumin/Globulin Ratio 1.1, Urine Color Yellow, Urine Appearance Sl cloudy, Urine pH 6.0, Ur Specific [place] 1.025, Urine Protein 1+ A, Urine Glucose (UA) Negative, Urine Ketones Negative, Urine Blood 3+ A, Urine Nitrate Positive, Urine Bilirubin Negative, Urine Urobilinogen 2.0, Ur Leukocyte Esterase 1+ A, Urine RBC 10-20, Urine WBC 10-20, Ur Squamous Epith Cells 3-5, Urine Bacteria 3+ I & O for Last 24 hours: Intake & Output 03/01/24 03/02/24 03/03/24 03/04/24 11:59 11:59 11:59 11:59 Weight 142 lb Constitutional Constitutional: no acute distress *Routine HEENT Exam Head: Present normocephalic Eye: Present EOMI and PERRL ENT: Present mucous membranes moist *Routine Neck Exam Neck: Present supple; Absent lymphadenopathy *Routine Respiratory Exam Respiratory: Present CTA bilaterally *Routine Cardiovascular Exam Cardiovascular: Present RRR *Routine Abdominal Exam Abdominal: Present soft and normoactive bowel sounds; Absent tenderness *Routine Rectal Exam Rectal:: deferred *Routine Genitalia Exam Genitalia:: deferred *Routine Extremities Exam Extremities: Absent cyanosis, clubbing or edema *Routine Skin Exam Skin: Present warm; Absent rash *Routine Neurological Exam Neurological: Present alert and oriented X3 Assessment and Plan *Assessment and plan (1) Vaginal bleeding: Status: Acute Category: Medical Code(s): N93.9 - Abnormal uterine and vaginal bleeding, unspecified (2) Anxiety: Status: Acute Category: Medical Code(s): F41.9 - Anxiety disorder, unspecified (3) High blood pressure: Status: Acute Qualifiers: Hypertension type: primary hypertension Qualified Code(s): I10 - Essential (primary) hypertension Category: Medical Code(s): I10 - Essential (primary) hypertension (4) Mass of uterus: Status: Acute Category: Medical Code(s): N85.8 - Other specified noninflammatory disorders of uterus (5) Postmenopausal bleeding: Status: Acute Category: Medical Code(s): N95.0 - Postmenopausal bleeding Plan We were hoping we could transfer her to gynecologic oncology but they have no beds. As result of that we are admitting her to our service. She is very anxious so we are giving her Ativan 1/2 mg every 8 as needed. We are awaiting a bed at [facility] and gynecologic oncology. We will make sure she gets her home medication.
[2024-03-03] MEDS: ALPRAZolam 0.5MG TABLET 0.5 MG PO (16:38)
[2024-03-03] MEDS: NITROFURANTOIN 100MG CAPSULE 100 MG PO (21:33)
--- NOTE | 2024-03-03 23:52 | PC.NURSE ---
Patient changed peripad while in bathroom. Small amount of reddish-pink blood noted on pad. Pad #2 on this shift.
--- NOTE | 2024-03-04 00:13 | PC.NURSE ---
Patient son called, named Iwona Nioñ. Patient gave permission for me to talk to her son after offering to transfer the call to her room. Verbal consent received by 2 RNs. Update given on patient is stable and appears comfortable, we are awaiting a bed to open at for transfer. Iwona then asked if any diagnosis has been made. Discussed that no diagnoses have been made, the goal is to continue to monitor bleeding here until a bed can open. Iwona voices understanding and gave his phone number in case of emergency - [phone].
--- NOTE | 2024-03-04 00:15 | PC.NURSE ---
Patient requesting medication for headache
[2024-03-04] MEDS: ACETAMINOPHEN 500MG TAB 1000 MG PO (00:29)
--- NOTE | 2024-03-04 02:54 | PC.NURSE ---
Tabby, Brick Tester called for update on patient. Most recent VS reported and patient in stable condition.
[2024-03-04 04:18] VITALS: BP 136/72; PULSE 65; RESP 16; TEMP 36.6; O2SAT 97
--- NOTE | 2024-03-04 04:18 | PC.NURSE ---
Patient asleep upon arrival into room and awoke to verbal stimuli. Patient alert and oriented x4. Heart sounds auscultated over left apex at normal rate and rhythm. Lung sounds auscultated clear bilaterally and throughout. Bowel sounds active in all four quadrants. Patient denies urinary symptoms. Vaginal bleeding scant to small and reddish pink in color. Skin remains pink, dry, and intact. IV site intact and patent. Patient affect cooperative and appropriate, but patient appears drowsy. Patient appears to be coping well and has been without anxious episode at this time. No needs voiced to RN at this time and patient wishes to go back to sleep.
--- NOTE | 2024-03-04 04:26 | PC.NURSE ---
3 pads total for this shift with a total weight of 84 grams. QBL is 15 mL
--- NOTE | 2024-03-04 06:21 | PC.NURSE ---
Patient changed peripad. 1 pink peripad weighing 33 grams, equating 10 mL of blood
[2024-03-04 07:33] LABS: Basophils # 0.1 K/mm3 (0-0.2); Basophils % 1.1 % (0.1-2.0); Eosinophils # 0.3 K/mm3 (0.0-0.4); Eosinophils % 3.6 % (0.1-12.0); Hematocrit 36.4 % (37.0-47.0); Hemoglobin 12.3 g/dL (12.2-16.2); Lymphocytes # 2.2 K/mm3 (0.7-4.5); Lymphocytes % 23.6 % (10-50); Mean Corpuscular HGB Conc 33.7 g/dL (31.8-35.4); Mean Corpuscular Hemoglobin 29.1 pg (27.0-31.2); Mean Corpuscular Volume 86.5 fl (81-99); Mean Platelet Volume 7.5 fl (7.4-10.4); Monocytes # 0.6 K/mm3 (0.1-1.0); Monocytes % 6.6 % (1.7-9.3); Neutrophils % 65.2 % (37.0-80.0); Platelet Count 416 K/mm3 (142-424); Red Blood Count 4.21 M/mm3 (4.20-5.40); Red Cell Distribution Width 14.7 % (11.5-17.5); White Blood Count 9.2 K/mm3 (4.8-10.8)
[2024-03-04] MEDS: IRBESARTAN 75MG TABLET 75 MG PO (08:22)
[2024-03-04] MEDS: FLUOXETINE 10MG CAPSULE 10 MG PO (08:22)
[2024-03-04] MEDS: NITROFURANTOIN 100MG CAPSULE 100 MG PO (08:24)
[2024-03-04 08:30] VITALS: BP 165/74; PULSE 77; RESP 15; TEMP 36.7; O2SAT 96; O2SAT 97
[2024-03-04] MEDS: VRAYLAR 3 MG 1 EACH PO (08:42)
--- NOTE | 2024-03-04 09:46 | PC.NURSE ---
called requesting to speak with Dr. Gil. Dr. Gil called and phone number provided [phone]
--- NOTE | 2024-03-04 09:53 | PC.NURSE ---
Dr. Gil called after speaking with [facility]. Since the patient is stable, we will discharge her later today and [facility] will call patient to make an outpatient appointment .
--- NOTE | 2024-03-04 09:53 | PC.NURSE ---
Spoke with Eliel from and he stated that they would be in touch with Ms. Lyons this coming week to schedule her follow up appointment. Patient's phone number provided.
--- NOTE | 2024-03-04 11:03 | PC.NURSE ---
Dr. Gil at bedside.
--- NOTE | 2024-03-04 11:20 | EXP.DC.SUM ---
General Admission date:: 03/03/24 Discharge date: 03/04/24 HPI HPI HPI: This patient is a 63-year-old female who has a history of hypertension, depression/anxiety, GERD, COPD presenting to the emergency department for evaluation with concern for vaginal bleeding. She notes it has been light for about 3 weeks now, but it got worse today. She also complains that she is extremely anxious and shaking because she is so nervous. 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 No reported recent vaginal trauma. Hospital Course Hospital Course Hospital Course: She was observed overnight and just used 3 pads overnight. There is a total of 25 cc of blood by weighing the pads. She denies any pain. She still has just a small amount of vaginal discharge. I spoke to Dr. Yusuf at and they still do not have any beds. Given the fact that she is hemodynamically stable they would just like to see her in a few days time in their clinic as an outpatient. As result of this we will discharge her home today to follow-up with the clinic later this week. They have her phone number and they will call her with an appointment time. Her condition on discharge is stable and improved. Exam Data for Last 24 hours Vital signs and Labs for Last 24 Hours: Temp Pulse Resp BP Pulse Ox O2 Del Method 98.0 F 77 15 165/74 H 97 Room Air 03/04/24 08:30 03/04/24 08:30 03/04/24 08:30 03/04/24 08:30 03/04/24 08:30 03/04/24 11:03 Laboratory Results - last 24 hr 03/03/24 12:03: WBC 11.7 H, RBC 4.62, Hgb 13.6, Hct 39.4, MCV 85.2, MCH 29.4, MCHC 34.6, RDW 14.4, Plt Count 463 H, MPV 7.9, Neut % (Auto) 75.5, Lymph % (Auto) 16.7, [place] % (Auto) 4.7, Eos % (Auto) 1.9, Baso % (Auto) 1.2, Neut # (Auto) 8.9 H, Lymph # (Auto) 2.0, [place] # (Auto) 0.6, Eos # (Auto) 0.2, Baso # (Auto) 0.1, PT 11.0, INR 0.98, APTT 25.2, Sodium 143, Potassium 3.6, Chloride 108 H, Carbon Dioxide 27, Anion Gap 11.6, BUN 16, Creatinine 0.90, Estimated Creat Clear 60, Estimated GFR 64, Est GFR ( Amer) 77, Glucose 108 H, Calcium 9.1, Total Bilirubin 0.7, AST 33, ALT 17, Alkaline Phosphatase 125, Total Protein 7.7, Albumin 4.0, Globulin 3.7 H, Albumin/Globulin Ratio 1.1, Urine Color Yellow, Urine Appearance Sl cloudy, Urine pH 6.0, Ur Specific [place] 1.025, Urine Protein 1+ A, Urine Glucose (UA) Negative, Urine Ketones Negative, Urine Blood 3+ A, Urine Nitrate Positive, Urine Bilirubin Negative, Urine Urobilinogen 2.0, Ur Leukocyte Esterase 1+ A, Urine RBC 10-20, Urine WBC 10-20, Ur Squamous Epith Cells 3-5, Urine Bacteria 3+ 03/04/24 07:06: WBC 9.2, RBC 4.21, Hgb 12.3, Hct 36.4 L, MCV 86.5, MCH 29.1, MCHC 33.7, RDW 14.7, Plt Count 416, MPV 7.5, Neut % (Auto) 65.2, Lymph % (Auto) 23.6, [place] % (Auto) 6.6, Eos % (Auto) 3.6, Baso % (Auto) 1.1, Neut # (Auto) 6.0, Lymph # (Auto) 2.2, [place] # (Auto) 0.6, Eos # (Auto) 0.3, Baso # (Auto) 0.1 I & O for Last 24 hours: Intake & Output 03/01/24 03/02/24 03/03/24 03/04/24 11:59 11:59 11:59 11:59 Output Total 0 / 0 Balance 0 / 0 Weight 142 lb Microbiology Reports for the Last 24 Hours: Microbiology 03/03/24 12:03 Urine,Clean Catch Urine Culture - Preliminary Constitutional Constitutional: no acute distress *Routine HEENT Exam Head: Present normocephalic *Routine Respiratory Exam Respiratory: Present normal respiratory effort; Absent accessory muscle use Results Data Completed and Pending Labs on day of discharge: Labs from last 24 hours 03/04/24 03/03/24 07:06 12:03 WBC 9.2 11.7 H RBC 4.21 4.62 Hgb 12.3 13.6 Hct 36.4 L 39.4 MCV 86.5 85.2 MCH 29.1 29.4 MCHC 33.7 34.6 RDW 14.7 14.4 Plt Count 416 463 H MPV 7.5 7.9 Neut % (Auto) 65.2 75.5 Lymph % (Auto) 23.6 16.7 [place] % (Auto) 6.6 4.7 Eos % (Auto) 3.6 1.9 Baso % (Auto) 1.1 1.2 Neut # (Auto) 6.0 8.9 H Lymph # (Auto) 2.2 2.0 [place] # (Auto) 0.6 0.6 Eos # (Auto) 0.3 0.2 Baso # (Auto) 0.1 0.1 PT 11.0 INR 0.98 APTT 25.2 Sodium 143 Potassium 3.6 Chloride 108 H Carbon Dioxide 27 Anion Gap 11.6 BUN 16 Creatinine 0.90 Estimated Creat Clear 60 Estimated GFR 64 Est GFR ( Amer) 77 Glucose 108 H Calcium 9.1 Total Bilirubin 0.7 AST 33 ALT 17 Alkaline Phosphatase 125 Total Protein 7.7 Albumin 4.0 Globulin 3.7 H Albumin/Globulin Ratio 1.1 Urine Color Yellow Urine Appearance Sl cloudy Urine pH 6.0 Ur Specific [place] 1.025 Urine Protein 1+ A Urine Glucose (UA) Negative Urine Ketones Negative Urine Blood 3+ A Urine Nitrate Positive Urine Bilirubin Negative Urine Urobilinogen 2.0 Ur Leukocyte Esterase 1+ A Urine RBC 10-20 Urine WBC 10-20 Ur Squamous Epith Cells 3-5 Urine Bacteria 3+ Preliminary micro results at discharge 03/03/24 12:03 Urine Culture - Preliminary Urine,Clean Catch DS: Diagnosis Discharge Diagnosis (1) Vaginal bleeding: Status: Acute Code(s): N93.9 - Abnormal uterine and vaginal bleeding, unspecified (2) Anxiety: Status: Acute Code(s): F41.9 - Anxiety disorder, unspecified (3) High blood pressure: Status: Acute Code(s): I10 - Essential (primary) hypertension Qualifiers: Hypertension type: primary hypertension Qualified Code(s): I10 - Essential (primary) hypertension (4) Mass of uterus: Status: Acute Code(s): N85.8 - Other specified noninflammatory disorders of uterus (5) Postmenopausal bleeding: Status: Acute Code(s): N95.0 - Postmenopausal bleeding Meds Home Medications and Allergies Home Medications ?Medication ?Instructions ?Recorded ?Confirmed ?Type cariprazine 3 mg capsule (Vraylar) 3 mg PO DAILY 03/03/24 03/03/24 History fluoxetine 10 mg capsule 10 mg PO DAILY 03/03/24 03/03/24 History losartan 50 mg tablet 50 mg PO DAILY 03/03/24 03/03/24 History omeprazole 20 mg capsule,delayed 20 mg PO DAILY 03/03/24 03/03/24 History release alprazolam 0.5 mg tablet (Xanax) 0.5 mg PO BID PRN anxiety #14 tabs 03/04/24 Rx New Prescriptions to Start Prescriptions: alprazolam [Xanax] Keshav Gil Allergies Allergy/AdvReac Type Severity Reaction Status Date / Time amlodipine [From Norvasc] Allergy Severe Redness of Verified 01/10/23 08:57 Skin furosemide [From Lasix] Allergy Severe swelling, Verified 01/10/23 08:57 pain, rash codeine [CODEINE] Allergy Intermediate I-HIVES Verified 01/10/23 08:57 morphine [MORPHINE] Allergy Intermediate I-HIVES Verified 01/10/23 08:57 penicillin G [PENICILLIN G] Allergy Intermediate I-HIVES Verified 01/10/23 08:57 Discharge Plan Disposition Patient Disposition: Home, Self-Care Condition: Good Follow up Plan Follow up with: Provider,Referral, MD [Primary Care Provider] - See instructions Prescriptions/Medication Reconciliation: New alprazolam [Xanax] 0.5 mg tablet 0.5 mg PO BID PRN (Reason: anxiety) Qty: 14 0RF Continued losartan 50 mg tablet 50 mg PO DAILY fluoxetine 10 mg capsule 10 mg PO DAILY omeprazole 20 mg capsule,delayed release(DR/EC) 20 mg PO DAILY Vraylar 3 mg capsule 3 mg PO DAILY Problem Reconciliation Problems Reviewed?: Yes Patient Discharge Instructions ACTIVITY: Continue current activity DIET: continue same diet Print Language: Mauritian Providers Primary Care Provider: Provider,Referral Admit Provider: Keshav Gil Attending Provider: Keshav Gil
== END 2024-03-04 11:59 | disposition home or self-care (01) ==
LOC: ER 14:25 → OB 14:44
PROVIDERS: Admitting Provider Nurse Practitioner Obstetrics & Gynecology; Emergency Provider Emergency Medicine; Visit Provider Nurse Practitioner Obstetrics & Gynecology
DX: F41.9 Anxiety disorder, unspecified; I10 Essential (primary) hypertension; N95.0 Postmenopausal bleeding; J44.9 Chronic obstructive pulmonary disease, unspecified; N85.8 Other specified noninflammatory disorders of uterus; N93.9 Abnormal uterine and vaginal bleeding, unspecified
CPT/HCPCS: 74176; 76830; 80053; 81001; 85025; 85610; 85730; 87086; 87088; G0378

== ENCOUNTER 2024-03-07 10:53 | Emergency (ER) | payer OTHER, SELFPAY ==
[2024-03-07 10:54] VITALS: BP 188/98; PULSE 89; RESP 18; TEMP 36.7; O2SAT 97; BMI 22.2
[2024-03-07 11:29] VITALS: BP 168/83; PULSE 82; O2SAT 98
[2024-03-07] MEDS: ACETAMINOPHEN 500MG TAB 1000 MG PO (11:34)
--- NOTE | 2024-03-07 11:49 | HMH.EDGENADL ---
Discharge Plan Disposition Patient Disposition: Home, Self-Care Chief Complaint: Urogenital-Female Prescriptions Prescriptions: No Action losartan 50 mg tablet 50 mg PO DAILY fluoxetine 10 mg capsule 10 mg PO DAILY omeprazole 20 mg capsule,delayed release(DR/EC) 20 mg PO DAILY Vraylar 3 mg capsule 3 mg PO DAILY alprazolam [Xanax] 0.5 mg tablet 0.5 mg PO BID PRN (Reason: anxiety) Qty: 14 0RF Referrals Follow up/Referrals: Thomas Hernandez MD [Primary Care Provider] - See instructions Activity Restrictions/Add. Instructions Additional Instructions/Restrictions: Call your family doctor to establish care for this visit to the emergency department and schedule follow-up within 48 hours to ensure improvement. If you have any worsening of your condition or any other concerning signs or symptoms, return to the emergency department or your primary care doctor for further evaluation. Continue follow-up with Dr. Yusuf on 03/10 at 1 PM. Clinical Impressions Clinical Impression: Abnormal vaginal bleeding Instructions Patient Instructions: DI for Urinary Tract Infection (UTI), DI for Urinary Tract Infection in Children Print Language Print Language: Persian Discharge ED Provider: Deandre Dee General Adult HPI General Chief complaint: Urogenital-Female Stated complaint: vaginal bleeding Time Seen by Provider: 03/07/24 11:16 Mode of Arrival: Ambulatory Source of Information: Patient and Relative Limitations: No Limitations Description of Symptoms (Recalled from ER Triage Doc. by RN): vaginal bleeding. has a uterin mass. appointment @ wednesday History of Present Illness HPI narrative: Please note that above description of symptoms, in this electronic medical record under categorization of recalled from ER triage doctor by RN are reflective of an initial nursing assessment, however, is not reflective of my full history and physical exam that was personally taken and clarified. Consequentially, this preceding description of symptoms, which may include the patient's categorized chief complaint in the EMR, do not reflect my personal clinical impression, and the ultimate description of history of present illness and patient stated complaints should be deferred to this section of the note. Unless stated otherwise or congruent with this section of the note, additional signs, symptoms, or incongruence should be interpreted as inaccurate with my clinical impression. Related Data Home Medications ?Medication ?Instructions ?Recorded ?Confirmed cariprazine 3 mg capsule (Vraylar) 3 mg PO DAILY 03/03/24 03/03/24 fluoxetine 10 mg capsule 10 mg PO DAILY 03/03/24 03/03/24 losartan 50 mg tablet 50 mg PO DAILY 03/03/24 03/03/24 omeprazole 20 mg capsule,delayed 20 mg PO DAILY 03/03/24 03/03/24 release Previous Rx's ?Medication ?Instructions ?Recorded alprazolam 0.5 mg tablet (Xanax) 0.5 mg PO BID PRN anxiety #14 tabs 03/04/24 Allergies Allergy/AdvReac Type Severity Reaction Status Date / Time amlodipine [From Norvasc] Allergy Severe Redness of Verified 01/10/23 08:57 Skin furosemide [From Lasix] Allergy Severe swelling, Verified 01/10/23 08:57 pain, rash codeine [CODEINE] Allergy Intermediate I-HIVES Verified 01/10/23 08:57 morphine [MORPHINE] Allergy Intermediate I-HIVES Verified 01/10/23 08:57 penicillin G [PENICILLIN G] Allergy Intermediate I-HIVES Verified 01/10/23 08:57 [facility] Disclaimer: The information contained in this section may have been updated after the patient was seen, as this information can be updated by other users. Medical History Uterine prolapse Postmenopausal bleeding History of left heart catheterization (LHC) Anxiety GERD (gastroesophageal reflux disease) COPD (chronic obstructive pulmonary disease) Palpitations Diastolic dysfunction Surgical History History of cholecystectomy History of colonoscopy History of section Family History Other Family history of cancer Social History Smoking Status: Never smoker second hand exposure: Yes alcohol intake: never substance use type: denies use current occupational status: employed Travel in the last 8 weeks: None household members: significant other and children housing: house marital status: do you feel safe at home: Yes victim of physical abuse: No victim of emotional abuse: No victim of sexual abuse: No Other Medical History Have you received the Flu Vaccine for this season: No Have you received the Pneumonia Vaccine: No ROS Obtained: Yes All systems reviewed & no additional complaints except as documented Physical Exam General General appearance: alert and anxious Head Head exam: atraumatic and normocephalic Eye Eye exam: Present normal appearance, PERRL and EOMI Neck Neck exam: Present normal inspection, full ROM and trachea midline Respiratory Respiratory exam: Absent respiratory distress, wheezes, stridor, accessory muscle use or prolonged expiratory phase Cardiovascular Cardiovascular exam: Present other (Pulses equal symmetric in upper and lower extremities) Abdominal Exam Abdominal exam: Present soft; Absent distention, tenderness or pulsatile mass Extremities Exam Extremities exam: Absent edema Neurological Exam Neurological exam: Present alert, oriented X3 and CN II-XII intact; Absent motor sensory deficit Skin Skin exam: Present warm and dry; Absent diaphoresis or erythema Medical Decision Making Medical Records Medical records reviewed: Yes I reviewed the patient's medical records. Screening: Per USPSTF and CDC recommendations, given the prevalence of disease in our region, it is our hospital?s policy to screen for HIV and viral Hepatitis for all patients aged 18 and over and those with ongoing risk factors. Remi Inquiry Pt receiving controlled substance: No Remi was queried for this patient: No Vital Signs: 03/07/24 10:54 03/07/24 11:29 Temperature 98.1 F Temperature Source Oral Pulse Rate 82 Pulse Rate [Right] 89 Respiratory Rate 18 Blood Pressure 168/83 H Blood Pressure [Right Arm] 188/98 H Blood Pressure Mean [Right Arm] 128 02 Sat by Pulse Oximetry 97 98 Lab Data Lab Results 03/07/24 11:40: WBC 11.2 H, RBC 4.54, Hgb 13.4, Hct 40.5, MCV 89.3, MCH 29.4, MCHC 33.0, RDW 14.5, Plt Count 395, MPV 7.7, Neut % (Auto) 70.7, Lymph % (Auto) 19.3, [place] % (Auto) 5.5, Eos % (Auto) 3.0, Baso % (Auto) 1.5, Neut # (Auto) 8.0 H, Lymph # (Auto) 2.2, [place] # (Auto) 0.6, Eos # (Auto) 0.3, Baso # (Auto) 0.2, Sodium 140, Potassium 4.0, Chloride 106, Carbon Dioxide 29, Anion Gap 9.0, BUN 16, Creatinine 0.90, Estimated Creat Clear 60, Estimated GFR 64, Est GFR ( Amer) 77, Glucose 88, Calcium 9.2, Total Bilirubin 0.6, AST 30, ALT 17, Alkaline Phosphatase 96, Total Protein 7.1, Albumin 3.9, Globulin 3.2, Albumin/Globulin Ratio 1.2, Blood Type A Positive, Antibody Screen Negative 03/07/24 11:40 03/07/24 11:40 Orders (Tests/Meds): ED MEDICATIONS Discontinued Medications Generic Name Dose Route Start Last Admin Trade Name Nani PRN Reason Stop Dose Admin Acetaminophen 1,000 mg 03/07/24 11:28 03/07/24 11:34 Acetaminophen 500mg Tab PO 03/07/24 11:29 1,000 mg ONCE ONE Administration ORDERS Category Date Time Status Type and Screen Stat BBK 03/07/24 11:40 Completed CBC w/Auto Diff [Complete Blood Count Auto Diff] Stat Lab 03/07/24 11:40 Completed CMP [Comprehensive Metabolic Panel] Stat Lab 03/07/24 11:40 Completed Medical Decision Narrative: 63-year-old female history of recently diagnosed uterine mass presenting with vaginal bleeding. Patient states that she woke up today, 03/07, has been saturating 1 pad per hour since waking up. No lightheadedness, chest pain, nausea or vomiting. She does have lower abdominal cramping. States that she got off the toilet and had blood in the toilet, passed large amounts of clots. Called CHOIR LEADER, recommended she come to the emergency department for further evaluation. No further symptoms or complaints. Patient currently on Macrobid for UTI. History was obtained via conversation with patient. On arrival, patient hemodynamically stable, alert, oriented x4, appropriate, GCS 15, moving all extremities spontaneously, pupils equal and reactive to light. Full physical exam performed and significant for anxious. Female no acute distress. Abdomen soft, nontender, nondistended. She is mildly hypertensive, nontachycardic. Cardiopulmonary exam within normal is, overall unremarkable physical exam. Differential includes acute blood loss anemia, progression of disease, among others. Patient placed on continuous cardiac monitoring and continuous pulse ox with initial blood pressure 188/90, heart rate 89, saturation 97% on room air. Patient was given oral Tylenol for symptomatic management and correction of underlying abnormalities. Workup independently interpreted and significant for hemoglobin 13.4 up from 12.3 just a couple days ago. On independent interpretation of imaging, patient does have large uterine mass on previous CT. See radiology read for full review of final results. On reevaluation, patient still without large amounts of vaginal bleeding. Because patient has follow-up in 3 days, I feel she is appropriate for discharge and outpatient follow-up. Because patient at baseline without signs or symptoms of clinical decompensation, deemed appropriate for discharge. Results were relayed to patient who voiced understanding and were agreeable to outpatient management and follow up. I discussed my clinical impression with patient and answered all questions. At this time, the evidence for any other entities in the differential is insufficient to warrant any further testing or ED observation. This was explained as well. Advisory was given that persistent or worsening symptoms require further evaluation. I confirmed the understanding of this discussion. Log Yard Manager disclaimer Much of this encounter note is an electronic metaphysicist spoken language to printed text. Electronic metaphysicist of the spoken language may permit errors. Although I have reviewed the note, some errors may still exist. Critical Care Critical Care Time Critical Care Time: No
[2024-03-07 11:59] LABS: Basophils # 0.2 K/mm3 (0-0.2); Basophils % 1.5 % (0.1-2.0); Eosinophils # 0.3 K/mm3 (0.0-0.4); Hematocrit 40.5 % (37.0-47.0); Hemoglobin 13.4 g/dL (12.2-16.2); Lymphocytes # 2.2 K/mm3 (0.7-4.5); Lymphocytes % 19.3 % (10-50); Mean Corpuscular Hemoglobin 29.4 pg (27.0-31.2); Mean Corpuscular Volume 89.3 fl (81-99); Mean Platelet Volume 7.7 fl (7.4-10.4); Monocytes # 0.6 K/mm3 (0.1-1.0); Monocytes % 5.5 % (1.7-9.3); Neutrophils % 70.7 % (37.0-80.0); Platelet Count 395 K/mm3 (142-424); Red Blood Count 4.54 M/mm3 (4.20-5.40); Red Cell Distribution Width 14.5 % (11.5-17.5); White Blood Count 11.2 K/mm3 (4.8-10.8)
[2024-03-07 12:01] VITALS: BP 165/90; PULSE 76; O2SAT 97
[2024-03-07 12:06] LABS: Alanine Aminotransferase 17 U/L (12-78); Albumin Level 3.9 g/dl (3.5-5.0); Albumin/Globulin Ratio 1.2 (1.1-1.8); Alkaline Phosphatase 96 U/L (38-126); Aspartate Amino Transferase 30 U/L (14-36); Bilirubin,Total 0.6 mg/dl (0.2-1.3); Blood Urea Nitrogen 16 mg/dl (7-17); Calcium 9.2 mg/dl (8.4-10.2); Carbon Dioxide 29 mmol/L (22.0-30.0); Chloride 106 mmol/L (98-107); Creatinine Clearance Estimated 60 mL/min (50-200); Estimated Glomerular Filt Rate 64 ml/min (>60); GFR (African American) 77 ML/MIN (>60); Globulin 3.2 g/dL (1.3-3.2); Glucose 88 mg/dl (74-100); Sodium 140 mmol/L (136-145); Total Protein,Serum 7.1 g/dl (6.3-8.2)
[2024-03-07 12:30] VITALS: BP 157/92; PULSE 71; O2SAT 95
[2024-03-07 13:00] VITALS: BP 158/94; PULSE 71; O2SAT 98
--- NOTE | 2024-03-07 13:03 | PC.NURSE ---
Called [facility] and had them bring a regular tray down for this pt
[2024-03-07 13:21] VITALS: BP 158/94; PULSE 70; RESP 18; TEMP 36.8; O2SAT 98
== END 2024-03-07 14:02 | disposition home or self-care (01) ==
PROVIDERS: Emergency Provider Emergency Medicine; PCP Internal Medicine Adolescent Medicine
DX: N93.9 Abnormal uterine and vaginal bleeding, unspecified (principal)
CPT/HCPCS: 80053; 85025; 86850; 99284

== ENCOUNTER 2024-04-10 10:39 | Emergency (ER) | payer OTHER, SELFPAY ==
[2024-04-10 11:05] VITALS: BP 147/80; PULSE 75; RESP 19; TEMP 37.1; O2SAT 100; BMI 23.3
--- NOTE | 2024-04-10 11:18 | ED_ITS ---
Discharge Plan Disposition Patient Disposition: Home, Self-Care Condition: Good Prescriptions Prescriptions: No Action losartan 50 mg tablet 50 mg PO DAILY fluoxetine 10 mg capsule 10 mg PO DAILY omeprazole 20 mg capsule,delayed release(DR/EC) 20 mg PO DAILY Vraylar 3 mg capsule 3 mg PO DAILY Referrals Follow up/Referrals: Chevy Valente APRN [Primary Care Provider] - See instructions Activity Restrictions/Add. Instructions Additional Instructions/Restrictions: Drink extra fluids with and between meals. If you have difficulty drinking, try very small amounts of water or suck on ice chips. ? Avoid fruit juices, as these do not replace minerals and can actually increase diarrhea. ? Children and adults can use sports drinks to replenish electrolytes. Younger children and infants should use products formulated for children, like oral rehydration solutions. ? Eat food in small amounts and let your stomach recover. ? Get lots of rest. You may feel tired or weak. ? No greasy or fried foods for the next 24-48 hours BRAT diet Bananas Rice Apples and [place] ? Make sure to drink plenty of liquids ? Return if needed ? Straight to ER if any life threatening symptoms ? Follow up with family doctor in the next 48-72 hours if no improvement or any worsening of symptoms Clinical Impressions Clinical Impression: Viral syndrome Stand Alone Forms Stand Alone Forms: Work/School Release Instructions Patient Instructions: DI for Viral Syndrome Print Language Print Language: [place] Discharge ED Provider: Kaylen Bender [facility] [place] HPI General Stated complaint: congestion cough stomach pain Mode of Arrival: Ambulatory Source of Information: Patient Limitations: No Limitations Time Seen by Provider: 04/10/24 11:18 Description of Symptoms (Recalled from Triage Doc. by RN): PATIENT C/O CONGESTION, HEADACHE, STOMACH ACHE, AND VOMITING X 2 DAYS HEENT Symptoms (Recalled from RN notes): Yes Resp Symptoms (Recalled from RN notes): No Skin Symptoms (Recalled from RN notes): No MS Symptoms (Recalled from RN notes): No Functional Status (Recalled from RN notes): WNL History of Present Illness Provider Complaint: Patient states that she thinks she has a stomach bug States that she has been having nausea and vomiting on and off with some nasal congestion and drainage Denies fever States that her throat is a little scratchy States that she needs a work note Related Data Home Medications ?Medication ?Instructions ?Recorded ?Confirmed cariprazine 3 mg capsule (Vraylar) 3 mg PO DAILY 04/10/24 04/10/24 fluoxetine 10 mg capsule 10 mg PO DAILY 04/10/24 04/10/24 losartan 50 mg tablet 50 mg PO DAILY 04/10/24 04/10/24 omeprazole 20 mg capsule,delayed 20 mg PO DAILY 04/10/24 04/10/24 release Allergies Allergy/AdvReac Type Severity Reaction Status Date / Time amlodipine (From Norvasc) Allergy Severe Redness of Verified 01/10/23 08:57 Skin furosemide (From Lasix) Allergy Severe swelling, Verified 01/10/23 08:57 pain, rash codeine (CODEINE) Allergy Intermediate I-HIVES Verified 01/10/23 08:57 morphine (MORPHINE) Allergy Intermediate I-HIVES Verified 01/10/23 08:57 penicillin G (PENICILLIN G) Allergy Intermediate I-HIVES Verified 01/10/23 08:57 Worker's Comp Is this a Worker's Comp case?: No [facility] Disclaimer: The information contained in this section may have been updated after the patient was seen, as this information can be updated by other users. Medical History Uterine prolapse Postmenopausal bleeding History of left heart catheterization (LHC) Anxiety GERD (gastroesophageal reflux disease) COPD (chronic obstructive pulmonary disease) Palpitations Diastolic dysfunction Surgical History History of cholecystectomy History of colonoscopy History of section Family History Other Family history of cancer Social History Smoking Status: Never smoker second hand exposure: Yes alcohol intake: never substance use type: denies use current occupational status: employed Travel in the last 8 weeks: None household members: significant other and children housing: house marital status: do you feel safe at home: Yes victim of physical abuse: No victim of emotional abuse: No victim of sexual abuse: No Have you lived/traveled outside [place] in past 30 days?: No Contact w/someone who lives/traveled outside US past 30 days?: No Exposure to someone with infectious disease in past 14 days?: No Do you have a fever (greater than 100.4 F or 38 C)?: No Have you tested positive for COVID-19: No Exposed to someone with COVID-19 in past 14 days?: No Do you have a sore throat?: Yes Do you have a cough?: Yes Do you have any weakness?: Yes Do you have any diarrhea?: Yes Are you experiencing any unusual bleeding?: No Do you have any muscle aches/pain?: No Do you have any abdominal pain?: No Are you experiencing loss of taste or smell?: No ROS Obtained: Yes All systems reviewed & no additional complaints except as documented and Yes Systems reviewed as appropriate & no additional complaints except as documented Constitutional Constitutional: Reports system reviewed and no additional complaints, except as documented, Reports as per HPI, Denies body ache, Denies chills and Denies fever(s) Eyes Eyes: Reports system reviewed and no additional complaints, except as documented and Reports as per HPI ENT Ears, Nose, Mouth, and Throat: Reports system reviewed and no additional complaints, except as documented, Reports as per HPI and Reports sore throat Cardiovascular Cardiovascular: Reports system reviewed and no additional complaints, except as documented and Reports as per HPI Respiratory Respiratory: Reports system reviewed and no additional complaints, except as documented and Reports as per HPI Gastrointestinal Gastrointestingal: Reports system reviewed and no additional complaints, except as documented, as per HPI, nausea and vomiting; Denies abdominal pain, constipation, cramping or diarrhea Genitourinary Female Genitourinary: Reports system reviewed and no additional complaints, except as documented and Reports as per HPI Physical Exam General General appearance: alert and in no apparent distress ENT ENT exam: Present normal exam, normal oropharynx, mucous membranes moist and TM's normal bilaterally Respiratory Respiratory exam: Present normal lung sounds bilaterally; Absent respiratory distress or wheezes Cardiovascular Cardiovascular exam: Present regular rate, normal rhythm and normal heart sounds Abdominal Exam Abdominal exam: Present soft and normal bowel sounds; Absent distention, tenderness, guarding or rebound Neurological Exam Neurological exam: Present alert, oriented X3 and normal gait Medical Decision Making Medical Records Screening: Per USPSTF and CDC recommendations, given the prevalence of disease in our region, it is our hospital?s policy to screen for HIV and viral Hepatitis for all patients aged 18 and over and those with ongoing risk factors. Remi Inquiry Pt receiving controlled substance: No Remi was queried for this patient: No Vital Signs: 04/10/24 11:05 Temperature 98.7 F Temperature Source Oral Pulse Rate [Left Brachial] 75 Respiratory Rate 19 Blood Pressure [Left Arm] 147/80 H Blood Pressure Mean [Left Arm] 102 Blood Pressure Source [Left Arm] Automatic Cuff Blood Pressure Position [Left Arm] Sitting 02 Sat by Pulse Oximetry 100 Oxygen Delivery Method Room Air Lab Data Lab results reviewed: Yes I reviewed the patient's lab results.
[2024-04-10 11:30] VITALS: BP 147/80; PULSE 75; RESP 19; TEMP 37.1; O2SAT 100
[2024-04-10 11:30] LABS: UTC Influenza A Antigen Negative (Negative); UTC Influenza B Antigen Negative (Negative)
[2024-04-10 11:31] LABS: UTC Strep Screen (Rapid) Negative (Negative)
== END 2024-04-10 11:34 | disposition home or self-care (01) ==
PROVIDERS: Emergency Provider Nurse Practitioner; PCP Nurse Practitioner Family
DX: B34.9 Viral infection, unspecified (principal)
CPT/HCPCS: 87804; 87880; 99213; G0381

== ENCOUNTER 2024-05-14 09:01 | Emergency (ER) | payer OTHER, SELFPAY ==
[2024-05-14 09:02] VITALS: BP 146/74; PULSE 84; RESP 18; TEMP 36.6; O2SAT 100; BMI 22.5
--- NOTE | 2024-05-14 09:20 | CT_ITS ---
PROCEDURE INFORMATION: Exam: CT Lumbar Spine Without Contrast Exam date and time: 05/14/2024 10:31 AM Age: 63 years old Clinical indication: Other: Cancer, new back pain TECHNIQUE: Imaging protocol: Computed tomography of the lumbar spine without contrast. Radiation optimization: All CT scans at this facility use at least one of these dose optimization techniques: automated exposure control; mA and/or kV adjustment per patient size (includes targeted exams where dose is matched to clinical indication); or iterative reconstruction. COMPARISON: MR LUMBAR SPINE WO CON 06/09/2019 3:16 PM FINDINGS: Bones/joints: Dextroscoliosis. No acute fracture. Severe disc space narrowing along the left lateral margin L2-L3 and right lateral margin L5-S1. Broad disc bulge evident from L2-L3 through L5-S1. No severe canal stenosis. Multilevel facet arthropathy with associated foraminal stenosis. Reproductive: Uterine mass as detailed on CT abdomen same day. Soft tissues: Unremarkable. IMPRESSION: 1. No acute fracture. Degenerative changes as detailed above. 2. Uterine mass as detailed on CT abdomen same day.
--- NOTE | 2024-05-14 09:20 | CT_ITS ---
PROCEDURE INFORMATION: Exam: CT Abdomen And Pelvis With Contrast Exam date and time: 05/14/2024 10:33 AM Age: 63 years old Clinical indication: Other: Vaginal mass, increase in pain TECHNIQUE: Imaging protocol: Computed tomography of the abdomen and pelvis with contrast. Radiation optimization: All CT scans at this facility use at least one of these dose optimization techniques: automated exposure control; mA and/or kV adjustment per patient size (includes targeted exams where dose is matched to clinical indication); or iterative reconstruction. Contrast material: ISOVUE; Contrast volume: 75 ml; Contrast route: IV; COMPARISON: CT ABDOMEN PELVIS WO CON 03/03/2024 12:38 PM FINDINGS: Liver: Normal. No mass. Gallbladder and biliary ducts: Previous cholecystectomy. Pancreas: Normal. No ductal dilation. Spleen: Normal. No splenomegaly. Adrenal glands: Normal. No mass. Kidneys and ureters: Stable cortical renal cysts left kidney, simple in appearance. No additional follow-up necessary. No hydronephrosis. Stomach and bowel: Unremarkable. No obstruction. No mucosal thickening. Appendix: No evidence of appendicitis. Intraperitoneal space: Unremarkable. No free air. No significant fluid collection. Vasculature: Unremarkable. No abdominal aortic aneurysm. Lymph nodes: Unremarkable. No enlarged lymph nodes. Urinary bladder: Unremarkable as visualized. Reproductive: Since previous examination, there has been significant increase in size of the uterus and irregular wall thickening, containing heterogeneous debris and gas. Neoplasm likely. Debris extends into the vaginal cavity. Distended uterus measures approximately 14 x 7 x 21 cm. Bones/joints: Unremarkable. No acute fracture. Soft tissues: Unremarkable. IMPRESSION: Since previous examination, there has been significant increase in size of the uterus and irregular wall thickening, containing heterogeneous debris and gas. Neoplasm likely. Debris extends into the vaginal cavity.
--- NOTE | 2024-05-14 09:20 | CT_ITS ---
PROCEDURE INFORMATION: Exam: CT Thoracic Spine Without Contrast Exam date and time: 05/14/2024 10:28 AM Age: 63 years old Clinical indication: Pain in thoracic spine; Additional info: Back pain, h/o cancer TECHNIQUE: Imaging protocol: Computed tomography of the thoracic spine without contrast. Radiation optimization: All CT scans at this facility use at least one of these dose optimization techniques: automated exposure control; mA and/or kV adjustment per patient size (includes targeted exams where dose is matched to clinical indication); or iterative reconstruction. COMPARISON: CT THORACIC SPINE WO CON 05/14/2024 10:28 AM FINDINGS: Bones/joints: No acute fracture. Normal alignment. No significant disc bulge or herniation. No severe spinal canal stenosis. No significant neural foraminal narrowing. Soft tissues: Unremarkable. IMPRESSION: No acute findings.
--- NOTE | 2024-05-14 09:21 | PC.NURSE ---
MD IN ROOM. PT NOTED TO HAVE A LARGE NECROTIC MASS PROTRUDING OUT OF HER VAGINA. BLOODY DISCHARGE. FOUL ODOR PRESENT.
[2024-05-14 09:25] LABS: Basophils # 0.1 K/mm3 (0-0.2); Basophils % 0.5 % (0.1-2.0); Eosinophils # 0.3 K/mm3 (0.0-0.4); Eosinophils % 1.4 % (0.1-12.0); Hematocrit 25.9 % (37.0-47.0); Hemoglobin 7.8 g/dL (12.2-16.2); Lymphocytes # 2.5 K/mm3 (0.7-4.5); Lymphocytes % 11.7 % (10-50); Mean Corpuscular HGB Conc 30.1 g/dL (31.8-35.4); Mean Corpuscular Hemoglobin 24.5 pg (27.0-31.2); Mean Corpuscular Volume 81.2 fl (81-99); Mean Platelet Volume 8.6 fl (7.4-10.4); Monocytes # 1.5 K/mm3 (0.1-1.0); Monocytes % 6.8 % (1.7-9.3); Neutrophils # 16.8 K/mm3 (1.8-7.8); Neutrophils % 78.7 % (37.0-80.0); Platelet Count 696 K/mm3 (142-424); Red Blood Count 3.19 M/mm3 (4.20-5.40); Red Cell Distribution Width 14.9 % (11.5-17.5); White Blood Count 21.4 K/mm3 (4.8-10.8)
[2024-05-14 09:26] LABS: MANUAL DIFFERENTIAL MANUAL DIFFERENTIAL (MANUAL DIFF)
[2024-05-14 09:30] VITALS: BP 142/70; RESP 16; O2SAT 100
[2024-05-14 09:38] LABS: Activated Partial Thrombo Time 22.7 seconds (22.5-28.5); INR 0.94 (0.9-1.1); Prothrombin Time 10.4 seconds (9.2-12.1)
[2024-05-14] MEDS: ONDANSETRON 4MG/2ML VIAL 4 MG IV (09:39)
[2024-05-14] MEDS: HYDROMORPHONE 2MG/ML SYRINGE 0.5 MG IV (09:40)
[2024-05-14 10:00] VITALS: BP 135/78; PULSE 73; RESP 20; O2SAT 98
[2024-05-14 10:04] LABS: Albumin Level 3.3 g/dl (3.5-5.0); Chloride 106 mmol/L (98-107); Sodium 134 mmol/L (136-145)
[2024-05-14 10:05] LABS: Potassium 4.6 mmoL/L (3.5-5.1)
--- NOTE | 2024-05-14 10:05 | HMH.EDGENADL ---
Discharge Plan Disposition Patient Disposition: Xfer Short-Term Hosp Condition: Good Prescriptions Prescriptions: No Action losartan 50 mg tablet 50 mg PO DAILY fluoxetine 10 mg capsule 10 mg PO DAILY omeprazole 20 mg capsule,delayed release(DR/EC) 20 mg PO DAILY Vraylar 3 mg capsule 3 mg PO DAILY Clinical Impressions Clinical Impression: Cervical mass, Vaginal bleeding, Vaginal pain, Acute blood loss anemia Print Language Print Language: [place] Discharge ED Provider: Yarelis Mohr General Adult HPI General Chief complaint: Vaginal Bleeding Stated complaint: vaginal bleeding Time Seen by Provider: 05/14/24 09:02 Mode of Arrival: EMS Source of Information: Patient Limitations: No Limitations Description of Symptoms (Recalled from ER Triage Doc. by RN): pt brought in by [facility] for vaginal bleeding, pt states she has been bleeding for a month, states she has been soaking a pull up every hour and a half, reports blood is dark red, reports pain 9/10 and explains it as a constant pressure, was seen here on 03/07/24 for same complaints and was sent to for possible cancer, pt states she followed up at and they told her she has an infection, unable to follow up to due lack of transportation per pt, pt unsure about cancer dx, pt also reports knots in her perineal area History of Present Illness HPI narrative: This patient is a 63-year-old female with a history of hypertension, hyperlipidemia, pulmonary hypertension, and COPD presenting to the emergency department for evaluation with concern for vaginal pain and bleeding. Patient was evaluated here by myself in February of last year for vaginal bleeding and was diagnosed with a large cervical mass. At that time, we establish care for the patient at [facility] with gynecology/oncology. She has seen them since then and has had biopsy as well as MRI which are concerning for a very large cervical mass that is now protruding from her vagina. Biopsy demonstrated concerns for carcinosarcoma. Based on medical record review from [facility], it looks like they wanted to start the patient on radiation therapy, however she has been very difficult to contact and does not have transportation there. It was that they tried to contact the patient to schedule appointments, however she has not been answering the phone. She called EMS today for worsened vaginal bleeding and significant vaginal pain. She states that it has been going on since February but is acutely worse over the last several days. She notes the pain is severe, 9 out of 10, and feels like a constant pressure. She also notes knots in her perineal area states she is concerned she has an infection. She states that she has low back pain radiating down her right leg but no numbness or tingling. EMS notes that the patient was crying out in pain en route but otherwise was stable. Patient demonstrates very poor understanding of her medical conditions. Related Data Home Medications ?Medication ?Instructions ?Recorded ?Confirmed cariprazine 3 mg capsule (Vraylar) 3 mg PO DAILY 04/10/24 05/14/24 fluoxetine 10 mg capsule 10 mg PO DAILY 04/10/24 05/14/24 losartan 50 mg tablet 50 mg PO DAILY 04/10/24 05/14/24 omeprazole 20 mg capsule,delayed 20 mg PO DAILY 04/10/24 05/14/24 release Allergies Allergy/AdvReac Type Severity Reaction Status Date / Time amlodipine (From Norvasc) Allergy Severe Redness of Verified 05/14/24 09:24 Skin furosemide (From Lasix) Allergy Severe swelling, Verified 05/14/24 09:24 pain, rash codeine (CODEINE) Allergy Intermediate I-HIVES Verified 05/14/24 09:24 morphine (MORPHINE) Allergy Intermediate I-HIVES Verified 05/14/24 09:24 penicillin G (PENICILLIN G) Allergy Intermediate I-HIVES Verified 05/14/24 09:24 [facility] Disclaimer: The information contained in this section may have been updated after the patient was seen, as this information can be updated by other users. Medical History COVID Otitis media Sinusitis Breast cancer screening by mammogram Vasovagal syncope Chest pain Heart palpitations Fatigue Cat bite Nausea Low back pain Hematuria Dysuria Vaginal laceration Acute blood loss anemia (ABLA) Facial swelling Dental caries Right flank pain Leukocytosis (leucocytosis) Abdominal pain Overweight (BMI 25.0-29.9) Uterine prolapse Postmenopausal bleeding History of left heart catheterization (LHC) Anxiety GERD (gastroesophageal reflux disease) COPD (chronic obstructive pulmonary disease) Palpitations Diastolic dysfunction Surgical History History of cholecystectomy History of colonoscopy History of section Family History Other Family history of cancer Social History Smoking Status: Never smoker second hand exposure: Yes alcohol intake: never substance use type: denies use current occupational status: employed Travel in the last 8 weeks: None household members: significant other and children housing: house marital status: do you feel safe at home: Yes victim of physical abuse: No victim of emotional abuse: No victim of sexual abuse: No Have you lived/traveled outside [place] in past 30 days?: No Contact w/someone who lives/traveled outside US past 30 days?: No Exposure to someone with infectious disease in past 14 days?: No Do you have a fever (greater than 100.4 F or 38 C)?: No Have you tested positive for COVID-19: No Exposed to someone with COVID-19 in past 14 days?: No Do you have a sore throat?: No Do you have a cough?: No Do you have any weakness?: No Do you have any diarrhea?: No Are you experiencing any unusual bleeding?: No Do you have any muscle aches/pain?: No Do you have any abdominal pain?: No Are you experiencing loss of taste or smell?: No Other Medical History Have you received the Flu Vaccine for this season: No Have you received the Pneumonia Vaccine: No ROS Obtained: Yes All systems reviewed & no additional complaints except as documented Physical Exam General General appearance: alert Comment: Uncomfortable appearing, tearful Head Head exam: atraumatic and normocephalic Eye Eye exam: Present normal appearance, PERRL and EOMI ENT ENT exam: Present normal exam, normal oropharynx, mucous membranes moist and normal external ear exam Neck Neck exam: Present normal inspection, full ROM and trachea midline; Absent tenderness Chest Chest inspection: Present normal inspection and symmetric chest wall rise; Absent tenderness Respiratory Respiratory exam: Present normal lung sounds bilaterally; Absent respiratory distress, wheezes, stridor or accessory muscle use Cardiovascular Cardiovascular exam: Present normal rhythm and tachycardia Abdominal Exam Abdominal exam: Present soft and tenderness (Lower abdomen); Absent distention, guarding or rebound External exam: Present other (Extremely foul-smelling necrotic mass protruding from the vagina. Actively oozing blood) Extremities Exam Extremities exam: Present normal inspection, full ROM and normal capillary refill; Absent tenderness or edema Back Exam Back exam: Present normal inspection and full ROM; Absent tenderness Neurological Exam Neurological exam: Present alert, oriented X3, CN II-XII intact and normal gait; Absent motor sensory deficit Psychiatric Psychiatric exam: Present anxious Skin Skin exam: Present warm and dry Medical Decision Making Medical Records Medical records reviewed: Yes I reviewed the patient's medical records. Screening: Per USPSTF and CDC recommendations, given the prevalence of disease in our region, it is our hospital?s policy to screen for HIV and viral Hepatitis for all patients aged 18 and over and those with ongoing risk factors. Remi Inquiry Pt receiving controlled substance: No Vital Signs: 05/14/24 09:02 05/14/24 09:30 05/14/24 10:00 Temperature 97.8 F Temperature Source Oral Pulse Rate 73 Pulse Rate [Right Radial] 84 Respiratory Rate 18 39 H 35 H Blood Pressure 142/70 H 135/78 Blood Pressure [Right Arm] 146/74 H Blood Pressure Mean [Right Arm] 98 Blood Pressure Source [Right Arm] Automatic Cuff Blood Pressure Position [Right Arm] Sitting 02 Sat by Pulse Oximetry 100 100 98 Oxygen Delivery Method Room Air Room Air 05/14/24 10:45 05/14/24 11:06 Temperature Temperature Source Pulse Rate 79 84 Pulse Rate [Right Radial] Respiratory Rate Blood Pressure 156/73 H 188/90 H Blood Pressure [Right Arm] Blood Pressure Mean [Right Arm] Blood Pressure Source [Right Arm] Blood Pressure Position [Right Arm] 02 Sat by Pulse Oximetry 98 91 L Oxygen Delivery Method Room Air Room Air Lab Data Lab results reviewed: Yes I reviewed the patient's lab results. Lab Results 05/14/24 09:03: WBC 21.4 H*, RBC 3.19 L, Hgb 7.8 L, Hct 25.9 L, MCV 81.2, MCH 24.5 L, MCHC 30.1 L, RDW 14.9, Plt Count 696 H, MPV 8.6, Neut % (Auto) 78.7, Lymph % (Auto) 11.7, [place] % (Auto) 6.8, Eos % (Auto) 1.4, Baso % (Auto) 0.5, Neut # (Auto) 16.8 H, Lymph # (Auto) 2.5, [place] # (Auto) 1.5 H, Eos # (Auto) 0.3, Baso # (Auto) 0.1, Total Counted 100, Neutrophils % (Manual) 88 H, Lymphocytes % (Manual) 9 L, Monocytes % (Manual) 2, Eosinophils % (Manual) 1, Platelet Estimate Moderate increase, Hypochromasia 1+, PT 10.4, INR 0.94, APTT 22.7, Sodium 134 L, Potassium 4.6, Chloride 106, Carbon Dioxide 23, Anion Gap 9.6, BUN 21 H, Creatinine 0.90, Estimated Creat Clear 61, Estimated GFR 64, Est GFR ( Amer) 77, Glucose 93, Calcium 9.5, Total Bilirubin 0.3, AST 28, ALT 19, Alkaline Phosphatase 185 H, Total Protein 6.6, Albumin 3.3 L, Globulin 3.3 H, Albumin/Globulin Ratio 1.0 L 05/14/24 10:50: Crossmatch ([facility]) See Detail 05/14/24 09:03 05/14/24 09:03 Orders (Tests/Meds): ED MEDICATIONS Generic Name Dose Route Start Last Admin Trade Name Freq PRN Reason Stop Dose Admin Sodium Chloride 250 mls @ 25 mls/hr 05/14/24 10:45 05/14/24 11:06 Sod Chlor 0.9% 250ml Bag IV 05/15/24 10:44 25 mls/hr .Q10H ADAM Administration Sodium Chloride 10 ml 05/14/24 10:28 05/14/24 10:29 Sodium Chloride 0.9% 10ml Syr (Rad Only) IV 06/13/24 10:27 10 ml NEEDED PRN Administration Maintain IV Site Discontinued Medications Generic Name Dose Route Start Last Admin Trade Name Freq PRN Reason Stop Dose Admin Hydromorphone HCl 0.5 mg 05/14/24 09:21 05/14/24 09:40 Hydromorphone 2mg/Ml Syringe IV 05/14/24 09:22 0.5 mg ONCE ONE Administration Iopamidol 75 ml 05/14/24 10:28 05/14/24 10:29 Iopamidol-370 (76%);100ml Bottle IV 05/14/24 10:29 75 ml ONCE ONE Administration Ondansetron HCl 4 mg 05/14/24 09:21 05/14/24 09:39 Ondansetron 4mg/2ml Vial IV 05/14/24 09:22 4 mg ONCE ONE Administration Promethazine HCl 12.5 mg 05/14/24 10:38 05/14/24 10:41 Promethazine Hcl 25mg/Ml 1ml Vial IV 05/14/24 10:39 12.5 mg ONCE ONE Administration Sodium Chloride 25 ml 05/14/24 10:38 05/14/24 10:42 Sodium Chloride 0.9% 25ml Bag IV 05/14/24 10:39 25 ml ONCE ONE Administration ORDERS Category Date Time Status Blood transfusion [Red Blood Cells] Stat BBK 05/14/24 10:50 Received Type and Screen Stat BBK 05/14/24 10:[address] abdomen pelvis w con Stat Cat Scan 05/14/24 09:[address] lumbar spine wo con Stat Cat Scan 05/14/24 09:[address] thoracic spine wo con Stat Cat Scan 05/14/24 09:20 Completed CRP [C-Reactive Protein] Stat Lab 05/14/24 09:03 Received Complete Blood Count Auto Diff Stat Lab 05/14/24 09:03 Completed Comprehensive Metabolic Panel Stat Lab 05/14/24 09:03 Completed Lactic Acid Stat Lab 05/14/24 10:50 Received PT INR [Prothrombin Time INR] Stat Lab 05/14/24 09:03 Completed PTT [Activated Partial Thrombo Time] Stat Lab 05/14/24 09:03 Completed Procalcitonin Stat Lab 05/14/24 09:03 Received Blood Culture Stat Micro 05/14/24 09:43 Received Medical Decision Narrative: In summary, this patient is a 63-year-old female presenting to the Emergency Department for evaluation of vaginal pain and bleeding as well as new back pain radiating down her right leg. Patient has known cervical mass. Differential diagnoses considered include but are not limited to bleeding vaginal mass, blood loss anemia, worsening malignancy burden, acute infection of mass. Ruling out the most morbid conditions drove assessment. It should be noted patient's history includes cervical malignancy which is not at goal therapy. This complicates all aspects of care by increasing patient's risk for morbidity. I reviewed patient's past medical records and noted previous evaluations here as well as at [facility] for her cervical mass that is now protruding from her vagina. On exam, the patient is uncomfortable appearing, tearful, and anxious with a large, extremely foul-smelling and necrotic mass protruding from her vagina that is actively oozing blood. Workup included CBC, CMP, coags, type and screen, CT angiogram of the abdomen and pelvis, CT thoracic and lumbar spine. Patient was given IV Dilaudid and Zofran for symptomatic improvement. I independently interpreted CT scan of the abdomen and pelvis prior to the radiologist read and noted significant increase in size of the mass from her most recent imaging here in February. Please see their read for final interpretation. Labs were obtained that demonstrated acute anemia with a hemoglobin of 7.8 from a baseline of 13.4 on evaluation from here in February. She has thrombocytosis with a platelet count of 696. She also leukocytosis with a white count of 21.4K. she has mild hyponatremia and mildly elevated BUN as well in setting of acute volume loss. Given patient's enlargement and mass, acute blood loss anemia, and increasing pain and bleeding, I feel the patient would benefit from transfer to higher level of care with gynecology/oncology. Given this, I called [facility] and spoke with Dr. Casas who accepted the patient for transfer to [facility] between the emergency department. I ordered blood transfusion initially, but this would take a while for crossmatch before it could be administered and I did not want to delay transfer to higher level of care for blood transfusion given that the patient is completely hemodynamically stable at this time. Given this, I arranged EMS transportation and patient was transferred in stable condition. Patient asked me to update manuela Stoddard [phone]. I attempted to call without answer. Critical Care Critical Care Time Critical Care Time: Yes Attestation: On 05/14/24, the high probability of a clinically significant, sudden or life threatening deterioration of the following system(s) required my full and direct attention, intervention and personal management. The time I documented below is in addition to time spent performing reported procedures but includes the following listed in this critical care notation. Total Time Total Critical Care Time: 30
[2024-05-14 10:07] LABS: Alanine Aminotransferase 19 U/L (12-78); Alkaline Phosphatase 185 U/L (38-126); Anion Gap 9.6 mEq/L (5-15); Aspartate Amino Transferase 28 U/L (14-36); Bilirubin,Total 0.3 mg/dl (0.2-1.3); Blood Urea Nitrogen 21 mg/dl (7-17); Carbon Dioxide 23 mmol/L (22.0-30.0); Creatinine Clearance Estimated 61 mL/min (50-200); Estimated Glomerular Filt Rate 64 ml/min (>60); GFR (African American) 77 ML/MIN (>60); Globulin 3.3 g/dL (1.3-3.2); Total Protein,Serum 6.6 g/dl (6.3-8.2)
[2024-05-14 10:08] LABS: Calcium 9.5 mg/dl (8.4-10.2); Glucose 93 mg/dl (74-100)
[2024-05-14 10:14] LABS: Eosinophils % 1 % (0-3); Hypochromasia 1+; Lymphocytes % 9 % (10-50); Monocytes % 2 % (2-9); Neutrophils % 88 % (42-76); Platelet Estimate Moderate Increase; Total Cells Counted 100
--- NOTE | 2024-05-14 10:22 | PC.NURSE ---
pt transported to radiology
[2024-05-14] MEDS: SODIUM CHLORIDE 0.9% 10ML SYR (RAD ONLY) 10 ML IV (10:29)
[2024-05-14] MEDS: IOPAMIDOL-370 (76%);100ML BOTTLE 75 ML IV (10:29)
[2024-05-14] MEDS: PROMETHAZINE HCL 25MG/ML 1ML VIAL 12.5 MG IV (10:41)
[2024-05-14] MEDS: SODIUM CHLORIDE 0.9% 25ML BAG 25 ML IV (10:42)
--- NOTE | 2024-05-14 10:42 | PC.NURSE ---
pt returned from radiology
[2024-05-14 10:45] VITALS: BP 156/73; PULSE 79; O2SAT 98
--- NOTE | 2024-05-14 10:46 | PC.NURSE ---
lab at bedside to collect blood for type and screen
--- NOTE | 2024-05-14 11:02 | PC.NURSE ---
called [facility] for transfer per for vaginal mass bleeding and pt follows oncology and gynaecology
--- NOTE | 2024-05-14 11:05 | PC.NURSE ---
on phone speaking with family
[2024-05-14 11:06] VITALS: BP 188/90; PULSE 84; O2SAT 91
[2024-05-14] MEDS: 0.9 % SODIUM CHLORIDE 250 ML 25 ML IV (11:06)
--- NOTE | 2024-05-14 11:08 | PC.NURSE ---
SPEAKING WITH AT THIS TIME
--- NOTE | 2024-05-14 11:08 | PC.NURSE ---
dr callejas is speaking to [employer] at this time
--- NOTE | 2024-05-14 11:33 | PC.NURSE ---
called report to nadine at er
--- NOTE | 2024-05-14 11:33 | PC.NURSE ---
EMS called for pt transport to ED.
[2024-05-14 11:38] LABS: Lactic Acid 1.6 mmol/L (0.7-2.1)
[2024-05-14 11:40] VITALS: BP 161/67; BP 188/90; PULSE 79; PULSE 84; RESP 18; TEMP 36.6; O2SAT 96; O2SAT 99
--- NOTE | 2024-05-14 11:50 | PC.NURSE ---
ems arrived to transfer pt to [facility]
[2024-05-14 12:01] LABS: C-Reactive Protein 87.9 mg/L (0-4)
== END 2024-05-14 11:54 | disposition short-term general hospital (02) ==
PROVIDERS: Emergency Provider Emergency Medicine
DX: D62 Acute posthemorrhagic anemia (principal); R10.2 Pelvic and perineal pain; N88.8 Other specified noninflammatory disorders of cervix uteri; N93.9 Abnormal uterine and vaginal bleeding, unspecified; M54.50 Low back pain, unspecified; M79.604 Pain in right leg
CPT/HCPCS: 72128; 72131; 74177; 80053; 83605; 84145; 85007; 85025; 85027; 85610; 85730; 86140; 87040; 96374; 96375; 99291; J1171; J2405; J2550; Q9967